=== PATIENT | female | born 1935 | race Caucasian/White ===

== ENCOUNTER → 2017-06-28 | Outpatient (REF) | payer MEDICARE ==
[2017-06-28 13:17] LABS: INR 2.23; PROTHROMBIN TIME 25.5 SECONDS (12.4-14.5)
== END ==
LOC: M LAB REF 12:57
DX: I48.2 Chronic atrial fibrillation (principal)
CPT/HCPCS: 85610

== ENCOUNTER → 2017-12-06 | Outpatient (REF) | payer MEDICARE ==
[2017-12-07 12:10] LABS: HEPATITIS B SURFACE ANTIGEN NEGATIVE (NEGATIVE)
[2017-12-07 12:30] LABS: HEPATITIS B CORE ANTIBODY IGM NEGATIVE (NEGATIVE)
[2017-12-07 12:32] LABS: HEPATITIS A ANTIBODY IGM NEGATIVE (NEGATIVE)
== END ==
LOC: M LAB REF 17:23
DX: R74.8 Abnormal levels of other serum enzymes (principal); I48.2 Chronic atrial fibrillation; Z51.81 Encounter for therapeutic drug level monitoring; Z79.01 Long term (current) use of anticoagulants
CPT/HCPCS: 87340

== ENCOUNTER → 2017-12-06 | Outpatient (REF) | payer MEDICARE ==
[2017-12-06 13:23] LABS: INR 3.36; PROTHROMBIN TIME 34.8 SECONDS (12.1-14.4)
== END ==
LOC: M LAB REF 12:55
DX: I48.2 Chronic atrial fibrillation (principal); Z51.81 Encounter for therapeutic drug level monitoring; Z79.01 Long term (current) use of anticoagulants

== ENCOUNTER 2017-12-11 05:41 | Observation (INO) | payer MEDICARE ==
[2017-12-11] MEDS ORDERED: LR 1,000 ML IV ×4 (06:00)
[2017-12-11 07:17] LABS: INR 1.73; PROTHROMBIN TIME 20.5 SECONDS (12.1-14.4)
[2017-12-11 08:31] LABS: ABO/RH TYPE MANUAL 1 1
[2017-12-11] MEDS ORDERED: dexameTHASONE 4 MG/ML 1ML VIAL (J1100) As Ordered ×2 (08:36)
[2017-12-11] MEDS ORDERED: LIDOCAINE 2% INJ 100 MG/5 ML SDV (FOR ANES.) As Ordered ×2 (08:36)
[2017-12-11] MEDS ORDERED: ONDANSETRON 4MG/2ML VIAL (J2405) As Ordered ×2 (08:36)
[2017-12-11] MEDS ORDERED: ROCURONIUM BROMIDE 50 MG/5 ML VIAL As Ordered ×4 (08:36→08:55)
[2017-12-11] MEDS ORDERED: PHENYLEPHRINE INJ 10MG/ML VIAL (J2370) As Ordered ×2 (08:36)
[2017-12-11] MEDS ORDERED: fentaNYL 250 MCG/5 ML INJECTION (J3010) As Ordered ×2 (08:36)
[2017-12-11] MEDS ORDERED: PROPOFOL 200 MG/20 ML VIAL As Ordered ×2 (08:36)
[2017-12-11] MEDS ORDERED: MIDAZOLAM INJ 2 MG/2 ML VIAL (J2250) As Ordered ×2 (08:36)
[2017-12-11] MEDS ORDERED: NEOSTIGMINE 10 MG/10 ML VIAL (J2710) As Ordered ×2 (09:30)
[2017-12-11] MEDS ORDERED: GLYCOPYRROLATE INJ 0.2 MG/ML 2 ML VIAL As Ordered ×4 (09:30)
[2017-12-11] MEDS: ceFAZolin SOD 1 GM in D5W MINI-BAG PLUS 50 ML IV (10:05)
[2017-12-11] MEDS: BUPIVACAINE/EPIN 0.25% 30 ML VIAL As Ordered ×2 (10:05)
[2017-12-11] MEDS ORDERED: ALBUTEROL SULFATE 2.5 MG/0.5 ML INH NEB SOLN As Ordered ×2 (10:37)
[2017-12-11] MEDS ORDERED: fentaNYL 100 MCG/2 ML INJECTION (J3010) IV ×2 (11:00)
[2017-12-11] MEDS ORDERED: ONDANSETRON 4MG/2ML VIAL (J2405) IV ×6 (11:00→14:45)
[2017-12-11] MEDS ORDERED: PERCOCET 5MG/325MG TAB PO ×2 (11:00)
[2017-12-11] MEDS: HYDROMORPHONE HCL 0.5 MG/ 0.5 ML SYRINGE (J1170 PER 1) IV ×6 (11:14→11:51)
[2017-12-11] MEDS ORDERED: SUGAMMADEX SODIUM 500 MG/5 ML VIAL (BRIDION) As Ordered ×2 (11:29)
[2017-12-11] MEDS ORDERED: FUROSEMIDE 20 MG/2 ML VIAL (J1940) As Ordered ×2 (11:46)
[2017-12-11] MEDS: FUROSEMIDE 20 MG/2 ML VIAL (J1940) IV ×4 (12:01→13:05)
[2017-12-11] MEDS ORDERED: NORCO, ANEXSIA 5/325MG TABLET (HYDROcodone/ACETAMINOPHEN) As Ordered ×2 (12:43)
[2017-12-11] MEDS: NORCO, ANEXSIA 5/325MG TABLET (HYDROcodone/ACETAMINOPHEN) PO ×6 (12:45→21:05)
[2017-12-11 14:15] LABS: BASO % 0.2 % (0.0-1.0); EOS % 0.5 % (0.0-3.0); HEMATOCRIT 34.2 % (36.0-47.0); HEMOGLOBIN 10.9 g/dl (12.0-15.5); IMMATURE GRANULOCYTE % 0.5 % (0-3.0); LYMPH # 0.7 10^3/uL (1.5-4.5); MEAN CORPUSCULAR HEMOGLOBIN 29.5 pg (27.0-33.0); MEAN CORPUSCULAR HGB CONC 31.9 g/dl (32.0-36.5); MEAN CORPUSCULAR VOLUME 92.7 fl (80.0-96.0); MONO # 0.2 10^3/uL (0.0-0.8); MONO % 4.1 % (0.0-5.0); NEUTROPHILS # 3.1 10^3/uL (1.8-7.7); NEUTROPHILS % 76.7 % (36.0-66.0); PLATELET COUNT, AUTOMATED 126 10^3/uL (150-450); RED BLOOD COUNT 3.69 10^6/uL (4.00-5.40); RED CELL DISTRIBUTION WIDTH 14.8 % (11.5-14.5); WHITE BLOOD COUNT 4.1 10^3/uL (4.0-10.0)
[2017-12-11 14:32] LABS: INR 1.38; PROTHROMBIN TIME 17.2 SECONDS (12.1-14.4)
[2017-12-11 14:35] LABS: LACTIC ACID SEPSIS PROTOCOL 1.3 MMOL/L (0.4-2.0)
[2017-12-11 14:38] LABS: ALBUMIN 3.6 GM/DL (3.2-5.2); ALKALINE PHOSPHATASE 325 U/L (45-117); ALT/SGPT 61 U/L (12-78); ANION GAP 7 MEQ/L (8-16); AST/SGOT 85 U/L (7-37); BILIRUBIN,TOTAL 0.8 MG/DL (0.2-1.0); BLOOD UREA NITROGEN 22 MG/DL (7-18); CALCIUM LEVEL 8.9 MG/DL (8.8-10.2); CARBON DIOXIDE LEVEL 29 MEQ/L (21-32); CHLORIDE LEVEL 104 MEQ/L (98-107); CK-MB VALUE MASS 2.3 NG/ML (<3.6); CPK CREATINE PHOSPHOKINASE 93 U/L (26-192); GLOMERULAR FILTRATION RATE 56.8 (>32); GLUCOSE, FASTING 114 MG/DL (70-100); MAGNESIUM LEVEL 2.1 MG/DL (1.8-2.4); MB/CK RELATIVE INDEX 2.47 (< OR =4); NT-PRO BNP 2413 PG/ML (<450); POTASSIUM SERUM 4.2 MEQ/L (3.5-5.1); SODIUM LEVEL 140 MEQ/L (136-145); TOTAL PROTEIN 7.6 GM/DL (6.4-8.2); TROPONIN I < 0.02 NG/ML (< 0.10)
[2017-12-11] MEDS ORDERED: ACETAMINOPHEN TAB 650MG DOSE (2X325MG) PO ×2 (14:45)
[2017-12-11] MEDS ORDERED: MORPHINE 4 MG/ML 1ML VIAL/SYRINGE (J2270) IV ×2 (14:45)
[2017-12-11] MEDS: LR 1,000 ML IV ×4 (14:45→15:36)
[2017-12-11] MEDS: FUROSEMIDE 40 MG/4 ML VIAL (J1940) IV ×2 (17:01)
[2017-12-11 19:30] LABS: CK-MB VALUE MASS 2.3 NG/ML (<3.6); CPK CREATINE PHOSPHOKINASE 88 U/L (26-192); MB/CK RELATIVE INDEX 2.61 (< OR =4); TROPONIN I < 0.02 NG/ML (< 0.10)
[2017-12-11] MEDS: SENOKOT S TAB PO ×2 (21:00)
[2017-12-11] MEDS: LOSARTAN 50 MG TAB PO ×2 (21:04)
[2017-12-11] MEDS: CARVedilol 12.5 MG TAB PO ×2 (21:04)
[2017-12-11] MEDS: DORZOLAMIDE 2% OPHTH SOLN 10 ML BTL OU ×2 (21:05)
[2017-12-11] MEDS: LATANOPROST 0.005% OPHTH SOLN 2.5 ML OU ×2 (21:05)
[2017-12-12] MEDS: FUROSEMIDE 40 MG/4 ML VIAL (J1940) IV ×6 (00:02→06:02)
[2017-12-12] MEDS: NORCO, ANEXSIA 5/325MG TABLET (HYDROcodone/ACETAMINOPHEN) PO ×12 (01:05→23:29)
[2017-12-12 05:33] LABS: HEMATOCRIT 32.2 % (36.0-47.0); HEMOGLOBIN 10.5 g/dl (12.0-15.5); MEAN CORPUSCULAR HEMOGLOBIN 29.5 pg (27.0-33.0); MEAN CORPUSCULAR HGB CONC 32.6 g/dl (32.0-36.5); MEAN CORPUSCULAR VOLUME 90.4 fl (80.0-96.0); PLATELET COUNT, AUTOMATED 128 10^3/uL (150-450); RED BLOOD COUNT 3.56 10^6/uL (4.00-5.40); RED CELL DISTRIBUTION WIDTH 14.6 % (11.5-14.5); WHITE BLOOD COUNT 5.3 10^3/uL (4.0-10.0)
[2017-12-12 05:57] LABS: INR 1.46
[2017-12-12] MEDS: LEVOTHYROXINE 150MCG TABLET (0.15MG) PO ×2 (06:02)
[2017-12-12 06:04] LABS: ANION GAP 10 MEQ/L (8-16); BLOOD UREA NITROGEN 22 MG/DL (7-18); CALCIUM LEVEL 8.4 MG/DL (8.8-10.2); CARBON DIOXIDE LEVEL 27 MEQ/L (21-32); CHLORIDE LEVEL 102 MEQ/L (98-107); CREATININE FOR GFR 1.02 MG/DL (0.55-1.30); FREE THYROXINE INDEX 5.9 % (1.3-4.8); GLOMERULAR FILTRATION RATE 55.5 (>32); GLUCOSE, FASTING 116 MG/DL (70-100); MAGNESIUM LEVEL 2.2 MG/DL (1.8-2.4); POTASSIUM SERUM 3.7 MEQ/L (3.5-5.1); SODIUM LEVEL 139 MEQ/L (136-145); T UPTAKE 38 % (30-39); THYROID STIMULATING HORMONE 0.255 uIU/ML (0.358-3.740); THYROXINE (T4) 15.5 UG/DL (4.5-12.0)
[2017-12-12] MEDS: SENNA 8.6 MG TAB (SENOKOT) PO ×4 (08:41→21:22)
[2017-12-12] MEDS: DOCUSATE SODIUM 100 MG CAP PO ×4 (08:42→21:21)
[2017-12-12] MEDS: FERROUS SULFATE 325MG TAB PO ×2 (08:42)
[2017-12-12] MEDS: DORZOLAMIDE 2% OPHTH SOLN 10 ML BTL OU ×4 (08:42→21:21)
[2017-12-12] MEDS: SENOKOT S TAB PO ×4 (08:42→21:22)
[2017-12-12] MEDS: CARVedilol 12.5 MG TAB PO ×4 (08:43→21:00)
[2017-12-12] MEDS: FUROSEMIDE 40 MG TAB PO ×2 (12:37)
[2017-12-12] MEDS: LOSARTAN 50 MG TAB PO ×2 (21:00)
[2017-12-12] MEDS: LATANOPROST 0.005% OPHTH SOLN 2.5 ML OU ×2 (21:21)
[2017-12-13 05:13] LABS: HEMOGLOBIN 10.4 g/dl (12.0-15.5); MEAN CORPUSCULAR HEMOGLOBIN 30.1 pg (27.0-33.0); MEAN CORPUSCULAR HGB CONC 32.5 g/dl (32.0-36.5); MEAN CORPUSCULAR VOLUME 92.5 fl (80.0-96.0); PLATELET COUNT, AUTOMATED 125 10^3/uL (150-450); RED BLOOD COUNT 3.46 10^6/uL (4.00-5.40); RED CELL DISTRIBUTION WIDTH 14.7 % (11.5-14.5); WHITE BLOOD COUNT 5.8 10^3/uL (4.0-10.0)
[2017-12-13 05:24] LABS: INR 1.29; PROTHROMBIN TIME 16.3 SECONDS (12.1-14.4)
[2017-12-13 05:35] LABS: ANION GAP 8 MEQ/L (8-16); BLOOD UREA NITROGEN 40 MG/DL (7-18); CALCIUM LEVEL 8.5 MG/DL (8.8-10.2); CARBON DIOXIDE LEVEL 28 MEQ/L (21-32); CHLORIDE LEVEL 102 MEQ/L (98-107); CREATININE FOR GFR 1.43 MG/DL (0.55-1.30); GLOMERULAR FILTRATION RATE 37.6 (>32); GLUCOSE, FASTING 86 MG/DL (70-100); MAGNESIUM LEVEL 2.2 MG/DL (1.8-2.4); POTASSIUM SERUM 3.9 MEQ/L (3.5-5.1); SODIUM LEVEL 138 MEQ/L (136-145)
[2017-12-13] MEDS: NORCO, ANEXSIA 5/325MG TABLET (HYDROcodone/ACETAMINOPHEN) PO ×2 (06:00)
[2017-12-13] MEDS: LEVOTHYROXINE 150MCG TABLET (0.15MG) PO ×2 (06:00)
[2017-12-13] MEDS: CARVedilol 12.5 MG TAB PO ×2 (09:00)
[2017-12-13] MEDS: SENOKOT S TAB PO ×2 (09:00)
[2017-12-13] MEDS: SENNA 8.6 MG TAB (SENOKOT) PO ×2 (09:00)
[2017-12-13] MEDS: FERROUS SULFATE 325MG TAB PO ×2 (09:32)
[2017-12-13] MEDS: DOCUSATE SODIUM 100 MG CAP PO ×2 (09:32)
[2017-12-13] MEDS: DORZOLAMIDE 2% OPHTH SOLN 10 ML BTL OU ×2 (09:33)
== END 2017-12-13 10:42 | disposition home or self-care (01) ==
LOC: M SDC 05:41 → M ICU 14:48
DX: R09.02 Hypoxemia (principal); R06.02 Shortness of breath; K40.90 Unilateral inguinal hernia, without obstruction or gangrene, not specified as recurrent; I48.91 Unspecified atrial fibrillation; J81.0 Acute pulmonary edema; E87.70 Fluid overload, unspecified; I12.9 Hypertensive chronic kidney disease with stage 1 through stage 4 chronic kidney disease, or unspecified chronic kidney disease; N18.9 Chronic kidney disease, unspecified; I25.10 Atherosclerotic heart disease of native coronary artery without angina pectoris; E03.9 Hypothyroidism, unspecified; I73.00 Raynaud's syndrome without gangrene; M35.00 Sjogren syndrome, unspecified; I49.5 Sick sinus syndrome; Z95.1 Presence of aortocoronary bypass graft; Z95.0 Presence of cardiac pacemaker; Z95.2 Presence of prosthetic heart valve; Z79.899 Other long term (current) drug therapy; Z88.1 Allergy status to other antibiotic agents; Z88.8 Allergy status to other drugs, medicaments and biological substances; Z79.01 Long term (current) use of anticoagulants; Z95.828 Presence of other vascular implants and grafts; R06.89 Other abnormalities of breathing
CPT/HCPCS: 49650

== ENCOUNTER → 2017-12-19 | Outpatient (REF) | payer MEDICARE ==
[2017-12-19 17:36] LABS: INR 1.67
[2017-12-19 17:37] LABS: PARTIAL THROMBOPLASTIN TIME 44.4 SECONDS (25.4-37.6)
== END ==
LOC: M LAB REF 16:27
DX: I48.2 Chronic atrial fibrillation (principal); I13.0 Hypertensive heart and chronic kidney disease with heart failure and stage 1 through stage 4 chronic kidney disease, or unspecified chronic kidney disease
CPT/HCPCS: 85610

== ENCOUNTER → 2018-01-17 | Outpatient (REF) | payer MEDICARE ==
[2018-01-17 19:05] LABS: INR 2.54; PROTHROMBIN TIME 27.9 SECONDS (12.1-14.4)
[2018-01-18 14:22] LABS: GAMMA GLUTAMYLTRANSPEPTIDASE 306 U/L (5-55)
== END ==
LOC: M LAB REF 17:28
DX: Z51.81 Encounter for therapeutic drug level monitoring (principal); Z79.01 Long term (current) use of anticoagulants; I48.2 Chronic atrial fibrillation; R74.8 Abnormal levels of other serum enzymes
CPT/HCPCS: 82977

== ENCOUNTER → 2018-02-19 | Outpatient (REF) | payer MEDICARE ==
[2018-02-19 17:31] LABS: INR 2.39; PROTHROMBIN TIME 26.6 SECONDS (12.1-14.4)
== END ==
LOC: M LAB REF 16:58
DX: I48.2 Chronic atrial fibrillation (principal)
CPT/HCPCS: 85610

== ENCOUNTER → 2018-02-20 | Outpatient (CLI) | payer MEDICARE | LOC: M PAIN 10:30 | DX: M54.6 Pain in thoracic spine (principal); M12.9 Arthropathy, unspecified; G89.29 Other chronic pain; Z86.79 Personal history of other diseases of the circulatory system; N18.9 Chronic kidney disease, unspecified; E03.9 Hypothyroidism, unspecified; M35.00 Sjogren syndrome, unspecified; Z79.01 Long term (current) use of anticoagulants; D64.9 Anemia, unspecified; Z79.899 Other long term (current) drug therapy; Z88.1 Allergy status to other antibiotic agents; Z88.8 Allergy status to other drugs, medicaments and biological substances; Z95.2 Presence of prosthetic heart valve; Z95.0 Presence of cardiac pacemaker | CPT/HCPCS: G0463 ==

== ENCOUNTER → 2018-02-21 | Outpatient (CLI) | payer MEDICARE ==
[~2018-02-21] MED LIST: GASTROGRAFIN SOLUTION 30ML (Q9963) As Ordered; ISOVUE-370 76% 100ML VIAL (Q9967) As Ordered
== END ==
LOC: M RAD 11:35
DX: R10.31 Right lower quadrant pain (principal)
CPT/HCPCS: Q9963

== ENCOUNTER → 2018-03-25 | Outpatient (CLI) | payer MEDICARE | LOC: M PAIN 10:00 | DX: M54.6 Pain in thoracic spine (principal); G89.29 Other chronic pain; M12.9 Arthropathy, unspecified; J44.9 Chronic obstructive pulmonary disease, unspecified; I48.91 Unspecified atrial fibrillation; N18.9 Chronic kidney disease, unspecified; E03.9 Hypothyroidism, unspecified; M35.00 Sjogren syndrome, unspecified; Z79.01 Long term (current) use of anticoagulants; Z79.899 Other long term (current) drug therapy; Z88.1 Allergy status to other antibiotic agents; Z88.5 Allergy status to narcotic agent; Z88.8 Allergy status to other drugs, medicaments and biological substances; Z95.0 Presence of cardiac pacemaker; Z86.79 Personal history of other diseases of the circulatory system | CPT/HCPCS: G0463 ==

== ENCOUNTER → 2018-04-04 | Outpatient (REF) | payer MEDICARE ==
[2018-04-04 13:13] LABS: INR 3.14
== END ==
LOC: M LAB REF 12:00
DX: I48.0 Paroxysmal atrial fibrillation (principal); Z51.81 Encounter for therapeutic drug level monitoring; Z79.01 Long term (current) use of anticoagulants
CPT/HCPCS: 85610

== ENCOUNTER → 2018-04-24 | Outpatient (CLI) | payer MEDICARE ==
[~2018-04-24] MED LIST changes: +CARV25TA PO; +DORZ2OPD OU; +FERR1TAB8 PO; +FURO20TA2 PO; -GASTROGRAFIN SOLUTION 30ML (Q9963) As Ordered; +HYDR-3713 PO; +ICY1PAD TOP; -ISOVUE-370 76% 100ML VIAL (Q9967) As Ordered; +LATA5OPD OU; +LEVO150T7 PO; +LOSA50TA73 PO; +NITR0.4S14 SL; +POLY1POW4 PO; +WARF-23 PO
--- NOTE | 2018-05-16 02:16 | ECWPNPC ---
PATIENT NAME: NADIRA MANSFIELD : 1935 GENDER: FEMALE VISIT DATE: 04/24/2018 DISCHARGE DATE: 04/24/18 1127 VISIT LOCKED DATE TIME: PHYSICIAN: MAYCO JACKSON RESOURCE: MAYCO JACKSON REASON FOR APPOINTMENT 1. BACK PAIN HISTORY OF PRESENT ILLNESS HISTORY OF PRESENT ILLNESS: HERE FOR F/U OF CHRONIC BACK PAIN. AT LAST VISIT WE STARTED CYMBALTA 20MG DAILY AND INCREASED HYDROCODONE TO 7.5MG Q6H PRN.SHE IS DOING MUCH BETTER WITH INCREAE IN HYDROCODONE.SHE WAS NOT ABLE TO TOLERATE CYMBALTA DUE TO URINARY RETENTION.RATING PAIN VAS 7/10.STATES SHE IS ABLE TO TOLERATE ADL'S AND DO SOME DAILY EXCERSISE NOW THAT SHE HAS IMPROVED PAIN CONTROL WITH CURRENT CHRONIC PAIN MEDICATION.DENIES SIDE EFFECTS.REPORTING NORMAL BOWEL AND BLADDER FUNCTION. PAIN THE PATIENT DESCRIBES THE PAIN... FALL RISK SCREENING: SCREENING :NO FALLS IN THE PAST YEAR CURRENT MEDICATIONS TAKING SENNA 8.6 MG TABLET TK 1 TO 2 TS PO QHS PRN ORAL TAKING WARFARIN SODIUM 5 MG TABLET TK DIRECTED ORAL TAKING CARVEDILOL 25 MG TABLET TK 1 T PO BID ORAL TAKING LEVOTHYROXINE SODIUM 150 MCG TABLET TK 1 T PO QD ORAL TAKING LOSARTAN POTASSIUM 50 MG TABLET TK 1 T PO QHS ORAL TAKING FERROUS SULFATE 325 (65 FE) MG TABLET TK 1 T PO EVERY DAY ORAL TAKING POLYETHYLENE GLYCOL 3350 - POWDER MIX 17 GRAMS OF POWDER IN WATER OR JUICE AND DRINK DAILY ORAL TAKING LASIX 20 MG TABLET 1 TABLET ORALLY ONCE A DAY TAKING TYLENOL EXTRA STRENGTH 500 MG TABLET 1 TABLET NEEDED ORALLY EVERY 6 HRS TAKING DORZOLAMIDE HCL 2 % SOLUTION INT 1 GTT IN OU BID OPHTHALMIC TAKING NITROSTAT 0.4 MG TABLET SUBLINGUAL SUBLINGUAL TAKING LATANOPROST 0.005 % SOLUTION INT 1 GTT IN EACH EYE IN THE MORNING OPHTHALMIC TAKING NORCO 7.5-325 MG TABLET 1 TABLET NEEDED ORALLY EVERY 6 HRS PRN MDD4 NOT-TAKING CYMBALTA 20 MG CAPSULE DELAYED RELEASE PARTICLES 1 CAPSULE ORALLY DAILY, NOTES: NOT TAKING (BAD SIDE EFFECTS) NOT-TAKING BUTRANS 5 MCG/HR PATCH WEEKLY 1 PATCH TO SKIN TRANSDERMAL 1 PATCH Q 7 DAYS =MDD, NOTES: TOO EXPENSIVE MEDICATION LIST REVIEWED AND RECONCILED WITH THE PATIENT PAST MEDICAL HISTORY LOW BACK PAIN ASTHMA ( PT DENIES) A FIB AORTIC VALVE DISORDER, CAD 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 OVERLOAD CHRONIC KIDNEY DISEASE HYPOTHYROIDISM OSTEOPOROSIS WITH HISTORY OF COMPRESSION FRACTURE SJOGRENS SYNDROME ANEMIA GLAUCOMA ALLERGIES ESPERANZA INHIBITORS: COUGH DEMEROL: N/V CIPRO: THROAT TIGHTEN NITROFURANTOIN: RASH AMOXICILLIN: ITCH / SWELLING HANDS CYMBALTA: DRY THROAT, DECREASE IN URINARY FREQUENCY: SIDE EFFECTS SURGICAL HISTORY AAA ENDOVASCULAR GRAFT 06/05/06 GLAUCOMA SHUNT 2010 & 2011 HEART VALVE 10/01 PACEMAKER 07/31 13 CAB X 3 2005 HERNIA X 3 12/24/17 FAMILY HISTORY FATHER: , DIAGNOSED WITH OTHER MOTHER: , DIAGNOSED WITH HEART DISEASE SOCIAL HISTORY GENERAL: TOBACCO USE ARE YOU A:NONSMOKER ALCOHOL SCREENING DID YOU HAVE A DRINK CONTAINING ALCOHOL IN THE PAST YEAR?NO POINTS0 INTERPRETATIONNEGATIVE RECREATIONAL DRUG USE DRUG USE?NO CAFFEINE CAFFEINE USE?YES HOW OFTEN AND HOW MUCH? COFFEE -2CUPS PER DAY DENOMINATIONAL [id number] CONGREGATIONAL LANGUAGE LANGUAGES SPOKEN:FILIPINO LEARNING BARRIERS / SPECIAL NEEDS BARRIERS TO LEARNING?NO HEARING IMPAIRED?NO VISION IMPAIRED?YES :CORRECTIVE LENSES COGNITIVELY IMPAIRED?NO READINESS TO LEARN?YES LEARNING PREFERENCES?NO LEARNING CAPABILITIES PRESENT?YES EMOTIONAL BARRIERS?NO SPECIAL DEVICES?YES :CANE, WALKER WHEN NEEDED TACK WELDER NEEDED?NO PAIN CLINIC PFS, CLERGY, PUBLIC HEALTH REFERRALS PFS REFERRAL NEEDED?NO CLERGY REFERRAL NEEDED?NO PUBLIC HEALTH REFERRAL NEEDED?NO WAS THE PROVIDER NOTIFIED OF ANY PERTINENT INFO?NO HAS THE PATIENT BEEN EDUCATED REGARDING HIS/HER PLAN OF CARE?YES HAS THE PATIENT BEEN EDUCATED REGARDING PAIN, THE RISK FOR PAIN, THE IMPORTANCE OF EFFECTIVE PAIN MANAGEMENT, AND THE PAIN ASSESSMENT PROCESS?YES ADVANCE DIRECTIVE ADVANCE DIRECTIVE DISCUSSED WITH PATIENT:YES HCP IS ISHA MANSFIELD REVIEWED WITH PATIENT 03/25/18 1020 JSREVIEWED WITH PATIENT 04/24/18 1107 JS. HOSPITALIZATION/MAJOR DIAGNOSTIC PROCEDURE SEE ABOVE SURGERY REVIEW OF SYSTEMS REVIEWED BY: PROVIDER: MAYCO VYAS . CONSTITUTIONAL: ANY CHANGE IN YOUR MEDICAL CONDITION? NO . CHILLS NO . FEVER NO . INFECTION: DO YOU HAVE NEW INFECTIONS? NO . DO YOU HAVE HISTORY OF MRSA? NO . MUSCULOSKELETAL: ANY NEW PATTERNS OF PAIN OR NUMBNESS? PATIENT STATES PAIN 7/10 AT THIS TIME TO UPPER BACK. STATES PAIN MEDICATION IS HELPING WITH THE PAIN . GASTROENTEROLOGY: ANY NEW CHANGE IN BOWEL CONTROL? NO . GENITOURINARY: ANY NEW CHANGE IN BLADDER CONTROL? NO . IS THERE A CHANCE YOU COULD BE ? NO . HEMATOLOGY/LYMPH: DO YOU TAKE ANY BLOOD THINNERS? (FOR EXAMPLE- COUMADIN, PLAVIX, AGGRENOX, PLATEL, PRADAXA, OR XARELTO) YES, COUMADIN . WHEN WAS YOUR LAST DOSE? DATE: 04/23/18 TIME: 1800 . NEUROLOGY: HAVE YOU FALLEN IN THE PAST 6 MONTHS? NO . ANY NEW EXTREMITY NUMBNESS OR WEAKNESS? NO . CARDIOLOGY: DO YOU HAVE A PACEMAKER OR DEFIBRILLATOR? YES . RESPIRATORY: HAVE YOU BEEN SICK IN THE PAST WEEK? NO . FEVER NO . FLU LIKE SYMPTOMS? NO . COUGH NO . INTEGUMENTARY: DO YOU HAVE ANY RASHES OR OPEN SORES? NO . ALLERGIC/IMMUNO: ARE YOU ALLERGIC TO SHELLFISH OR IV DYE? NO . ANY NEW ALLERGIES? NO . PSYCHIATRIC: DO YOU HAVE THOUGHTS OF HURTING YOURSELF OR SOMEONE ELSE? NO . ARE YOU ABUSED, NEGLECTED, OR IN AN UNSAFE ENVIRONMENT? NO . ENDOCRINOLOGY: ARE YOU DIABETIC? NO . OTHER: DO YOU NEED ANY PRESCRIPTIONS? NO . IF YES, PLEASE LIST: ____ . ANY NEW PROBLEMS WITH YOUR MEDICATIONS? YES, BAD SIDE EFFECTS WITH CYMBALTA . WHEN DID YOU LAST EAT? ____ . WHEN DID YOU LAST DRINK? ____ . WHAT DID YOU LAST DRINK? ____ . NAME OF PERSON DRIVING YOU HOME? ____ . DO YOU HAVE ANY OTHER QUESTIONS OR CONCERNS SHINGLES VACCINE 03/2018 . VITAL SIGNS WT 143.0 LBS, HT 410 IN, BMI 0.60 INDEX, BP 139/60 MM HG, HR 60 /MIN, RR 18 /MIN, TEMP 97.0 F, OXYGEN SAT % 94%, SAFE IN ENV? (Y/N) YES, NA INITIALS AW 1058, REVIEWED BY: MOLLY. EXAMINATION GENERAL EXAMINATION: GENERAL APPEARANCE:AWAKE,ALERT ,PLEAASANT . PSYCHAFFECT NORMAL . LUNGS:LUNG CROWDER ARE CLEAR TO AUSCULTATION BILATERALLY. GOOD MOVEMENT OF AIR . HEART:S1, S2 IN A REGULAR RATE AND RHYTHM. NO SIGNIFICANT MURMURS, RUBS OR GALLOPS NOTED . 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 (REF #[id number] ) BRINGS IN MEDICATIONS WHICH IS APPROPRIATE FOR WHAT WAS DISPENSED. , RISKS AND BENEFITS OF NARCOTIC/OPIOD MEDICATIONS WERE REVIEWED WITH PATIENT - THIS INCLUDES BUT IS NOT LIMITED TO RISK OF DEPENDANCE/DEVELOPMENT OF ADDICTION, MOOD DISTURBANCE AND DEPRESSION, OSTEOPOROSIS, HORMONAL AND LABIDAL CHANGES, RESPIRATORY DEPRESSION AND . PATIENT IS ADVISED NOT TO DRIVE OR DRINK ALCOHOL WHILE ON THESE MEDICATIONS. PROCEDURE CODES FA211 ESTABILISHED PATIENT [facility] CHARGE DISPOSITION & COMMUNICATION FOLLOW UP 3 MONTHS ELECTRONICALLY SIGNED BY LILLIAM ALVARADO ON 05/15/2018 AT 08:56 AM EST DISCLAIMER : THIS IS A VISIT SUMMARY EXTRACTED FROM THE [employer] CHART. IT IS NOT A COPY OF THE [employer] PROGRESS NOTE. ROSEANN
== END ==
LOC: M PAIN 10:45
PROVIDERS: ATTEND Nurse Practitioner Family
DX: M12.9 Arthropathy, unspecified (principal); M54.5 Low back pain; G89.29 Other chronic pain; J45.909 Unspecified asthma, uncomplicated; N18.9 Chronic kidney disease, unspecified; E03.9 Hypothyroidism, unspecified; M81.0 Age-related osteoporosis without current pathological fracture; M35.00 Sjogren syndrome, unspecified; Z79.01 Long term (current) use of anticoagulants; Z79.899 Other long term (current) drug therapy; Z79.891 Long term (current) use of opiate analgesic; Z88.1 Allergy status to other antibiotic agents; Z88.8 Allergy status to other drugs, medicaments and biological substances; Z95.0 Presence of cardiac pacemaker; Z95.2 Presence of prosthetic heart valve; Z86.79 Personal history of other diseases of the circulatory system

== ENCOUNTER → 2018-05-02 | Outpatient (REF) | payer MEDICARE ==
[2018-05-02 12:24] LABS: INR 2.03; PROTHROMBIN TIME 23.3 SECONDS (12.1-14.4)
== END ==
LOC: M LAB REF 12:08
DX: I48.2 Chronic atrial fibrillation (principal)
CPT/HCPCS: 85610

== ENCOUNTER → 2018-06-03 | Outpatient (REF) | payer MEDICARE ==
[~2018-06-03] MED LIST changes: -LOSA50TA73 PO; +LOSA50TA88 PO; -POLY1POW4 PO; +POLY33503 PO
[2018-06-03 12:38] LABS: INR 1.9; PROTHROMBIN TIME 22.1 SECONDS (12.1-14.4)
== END ==
LOC: M LAB REF 11:54
PROVIDERS: ATTEND Internal Medicine
DX: Z51.81 Encounter for therapeutic drug level monitoring (principal); I48.2 Chronic atrial fibrillation; Z79.01 Long term (current) use of anticoagulants

== ENCOUNTER → 2018-07-04 | Outpatient (REF) | payer MEDICARE ==
[2018-07-04 14:15] LABS: INR 1.51; PROTHROMBIN TIME 18.4 SECONDS (12.1-14.4)
== END ==
LOC: M LAB REF 12:57
PROVIDERS: ATTEND Internal Medicine
DX: I48.2 Chronic atrial fibrillation (principal)

== ENCOUNTER → 2018-07-23 | Outpatient (CLI) | payer MEDICARE ==
--- NOTE | 2018-08-07 02:08 | ECWPNPC ---
PATIENT NAME: NADIRA MANSFIELD : 1935 GENDER: FEMALE VISIT DATE: 07/23/2018 DISCHARGE DATE: 07/23/18 1254 VISIT LOCKED DATE TIME: PHYSICIAN: MAYCO JACKSON RESOURCE: MAYCO JACKSON REASON FOR APPOINTMENT 1. BACK PAIN HISTORY OF PRESENT ILLNESS HISTORY OF PRESENT ILLNESS: HERE FOR F/U OF CHRONIC BACK PAIN. AT LAST VISIT WE STARTED CYMBALTA 20MG DAILY AND INCREASED HYDROCODONE TO 7.5MG Q6H PRN.SHE IS DOING MUCH BETTER WITH INCREAE IN HYDROCODONE.SHE WAS NOT ABLE TO TOLERATE CYMBALTA DUE TO URINARY RETENTION.RATING PAIN VAS 8/10.STATES SHE IS ABLE TO TOLERATE ADL'S AND DO SOME DAILY EXCERSISE NOW THAT SHE HAS IMPROVED PAIN CONTROL WITH CURRENT CHRONIC PAIN MEDICATION.DENIES SIDE EFFECTS.REPORTING NORMAL BOWEL AND BLADDER FUNCTION. PAIN THE PATIENT DESCRIBES THE PAIN... THE PATIENT DESCRIBES THE PAIN... FALL RISK SCREENING: SCREENING : NO FALLS IN THE PAST YEAR. CURRENT MEDICATIONS TAKING SENNA 8.6 MG TABLET TK 1 TO 2 TS PO QHS PRN ORAL TAKING WARFARIN SODIUM 5 MG TABLET TK DIRECTED ORAL TAKING CARVEDILOL 25 MG TABLET TK 1 T PO BID ORAL TAKING LEVOTHYROXINE SODIUM 150 MCG TABLET TK 1 T PO QD ORAL TAKING LOSARTAN POTASSIUM 50 MG TABLET TK 1 T PO QHS ORAL TAKING POLYETHYLENE GLYCOL 3350 - POWDER MIX 17 GRAMS OF POWDER IN WATER OR JUICE AND DRINK DAILY ORAL TAKING LASIX 20 MG TABLET 1 TABLET ORALLY ONCE A DAY TAKING TYLENOL EXTRA STRENGTH 500 MG TABLET 1 TABLET NEEDED ORALLY EVERY 6 HRS TAKING DORZOLAMIDE HCL 2 % SOLUTION INT 1 GTT IN OU BID OPHTHALMIC TAKING NITROSTAT 0.4 MG TABLET SUBLINGUAL SUBLINGUAL TAKING LATANOPROST 0.005 % SOLUTION INT 1 GTT IN EACH EYE IN THE MORNING OPHTHALMIC TAKING NORCO 7.5-325 MG TABLET 1 TABLET NEEDED ORALLY EVERY 6 HRS PRN MDD4 TAKING TURMERIC COMPLEX/BLACK PEPPER 500-3 MG CAPSULE ORALLY NOT-TAKING FERROUS SULFATE 325 (65 FE) MG TABLET TK 1 T PO EVERY DAY ORAL NOT-TAKING CYMBALTA 20 MG CAPSULE DELAYED RELEASE PARTICLES 1 CAPSULE ORALLY DAILY, NOTES: NOT TAKING (BAD SIDE EFFECTS) NOT-TAKING BUTRANS 5 MCG/HR PATCH WEEKLY 1 PATCH TO SKIN TRANSDERMAL 1 PATCH Q 7 DAYS =MDD, NOTES: TOO EXPENSIVE MEDICATION LIST REVIEWED AND RECONCILED WITH THE PATIENT PAST MEDICAL HISTORY LOW BACK PAIN ASTHMA ( PT DENIES) A FIB AORTIC VALVE DISORDER, CAD 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 OVERLOAD CHRONIC KIDNEY DISEASE HYPOTHYROIDISM OSTEOPOROSIS WITH HISTORY OF COMPRESSION FRACTURE SJOGRENS SYNDROME ANEMIA GLAUCOMA ALLERGIES ESPERANZA INHIBITORS: COUGH DEMEROL: N/V CIPRO: THROAT TIGHTEN NITROFURANTOIN: RASH AMOXICILLIN: ITCH / SWELLING HANDS CYMBALTA: DRY THROAT, DECREASE IN URINARY FREQUENCY - SIDE EFFECTS SURGICAL HISTORY AAA ENDOVASCULAR GRAFT 06/05/06 GLAUCOMA SHUNT 2010 & 2011 HEART VALVE 10/01 PACEMAKER 07/31 13 CAB X 3 2005 HERNIA X 3 12/24/17 FAMILY HISTORY FATHER: , DIAGNOSED WITH OTHER MOTHER: , HEART DISEASE SOCIAL HISTORY GENERAL: TOBACCO USE ARE YOU A:NONSMOKER LATEX QUESTIONNAIRE LATEX ALLERGY : HAVE YOU EVER DEVELOPED ANY TYPE OF REACTION AFTER HANDLING LATEX PRODUCTS SUCH RUBBER GLOVES, CONDOMS, DIAPHRAGMS, BALLOONS, SOCKS, OR UNDERWEAR?NO LATEX ALLERGY : HAVE YOU EVER DEVELOPED ANY TYPE OF REACTION DURING OR AFTER DENTAL APPOINTMENT, VAGINAL/RECTAL EXAMINATION, SURGICAL PROCEDURE, OR ANY OTHER EXPOSURE?NO LATEX RISK : HAVE YOU EVER HAD ANY DIFFICULTY BREATHING OR HIVES AFTER EATING OR HANDLING ANY FRUITS, OR VEGETABLES; SUCH KIWI, BANANAS, STONE FRUITS, OR CHESTNUTSNO LATEX RISK : DO YOU HAVE A PREVIOUS PERSONAL HISTORY OF MORE THAN NINE SURGERIES, SPINA BIFIDA, OR REPEATED CATHERTIZATIONS? NO LATEX RISK : ARE YOU FREQUENTLY EXPOSED TO LATEX PRODUCTS IN YOUR OCCUPATION?NO DATE ASKED : 07/23/2018 ALCOHOL SCREENING DID YOU HAVE A DRINK CONTAINING ALCOHOL IN THE PAST YEAR?NO POINTS0 INTERPRETATIONNEGATIVE RECREATIONAL DRUG USE DRUG USE?NO CAFFEINE CAFFEINE USE?YES HOW OFTEN AND HOW MUCH? COFFEE -2CUPS PER DAY RELIGIOUS [id number] SCIENTOLOGIST LANGUAGE LANGUAGES SPOKEN:MONGOLIAN LEARNING BARRIERS / SPECIAL NEEDS BARRIERS TO LEARNING?NO HEARING IMPAIRED?NO VISION IMPAIRED?YES :CORRECTIVE LENSES COGNITIVELY IMPAIRED?NO READINESS TO LEARN?YES LEARNING PREFERENCES?NO LEARNING CAPABILITIES PRESENT?YES EMOTIONAL BARRIERS?NO SPECIAL DEVICES?YES :CANE, WALKER WHEN NEEDED AUTO RADIATOR MECHANIC NEEDED?NO PAIN CLINIC PFS, CLERGY, PUBLIC HEALTH REFERRALS PFS REFERRAL NEEDED?NO CLERGY REFERRAL NEEDED?NO PUBLIC HEALTH REFERRAL NEEDED?NO WAS THE PROVIDER NOTIFIED OF ANY PERTINENT INFO?NO HAS THE PATIENT BEEN EDUCATED REGARDING HIS/HER PLAN OF CARE?YES HAS THE PATIENT BEEN EDUCATED REGARDING PAIN, THE RISK FOR PAIN, THE IMPORTANCE OF EFFECTIVE PAIN MANAGEMENT, AND THE PAIN ASSESSMENT PROCESS?YES ADVANCE DIRECTIVE ADVANCE DIRECTIVE DISCUSSED WITH PATIENT:YES HCP IS ISHA MANSFIELD REVIEWED WITH PATIENT 03/25/18 1020 JSREVIEWED WITH PATIENT 04/24/18 1107 JSREVIEWED WITH PATIENT 07/23/18 1140 LAS. HOSPITALIZATION/MAJOR DIAGNOSTIC PROCEDURE SEE ABOVE SURGERY REVIEW OF SYSTEMS REVIEWED BY: PROVIDER: MAYCO VYAS . CONSTITUTIONAL: ANY CHANGE IN YOUR MEDICAL CONDITION? NO . CHILLS NO . FEVER NO . INFECTION: DO YOU HAVE NEW INFECTIONS? NO . DO YOU HAVE HISTORY OF MRSA? NO . MUSCULOSKELETAL: ANY NEW PATTERNS OF PAIN OR NUMBNESS? NO . GASTROENTEROLOGY: ANY NEW CHANGE IN BOWEL CONTROL? PT REPORTS INCREASE IN CONSTIPATION . GENITOURINARY: ANY NEW CHANGE IN BLADDER CONTROL? NO . IS THERE A CHANCE YOU COULD BE ? NO . HEMATOLOGY/LYMPH: DO YOU TAKE ANY BLOOD THINNERS? (FOR EXAMPLE- COUMADIN, PLAVIX, AGGRENOX, PLATEL, PRADAXA, OR XARELTO) YES . WHEN WAS YOUR LAST DOSE? DATE: TIME: COUMADIN . NEUROLOGY: HAVE YOU FALLEN IN THE PAST 12 MONTHS? NO . ANY NEW EXTREMITY NUMBNESS OR WEAKNESS? PT REPORTS A NEW DISCOMFORT AND STIFFNESS IN RIGHT THUMB. . CARDIOLOGY: DO YOU HAVE A PACEMAKER OR DEFIBRILLATOR? YES . RESPIRATORY: HAVE YOU BEEN SICK IN THE PAST WEEK? NO . FEVER NO . FLU LIKE SYMPTOMS? NO . COUGH NO . INTEGUMENTARY: DO YOU HAVE ANY RASHES OR OPEN SORES? NO . ALLERGIC/IMMUNO: ARE YOU ALLERGIC TO IV DYE? NO . ANY NEW ALLERGIES? NO . PSYCHIATRIC: DO YOU HAVE THOUGHTS OF HURTING YOURSELF OR SOMEONE ELSE? NO . ARE YOU ABUSED, NEGLECTED, OR IN AN UNSAFE ENVIRONMENT? NO . ENDOCRINOLOGY: ARE YOU DIABETIC? NO . OTHER: DO YOU NEED ANY PRESCRIPTIONS? NO . IF YES, PLEASE LIST: ____ . ANY NEW PROBLEMS WITH YOUR MEDICATIONS? NO . WHEN DID YOU LAST EAT? ____ . WHEN DID YOU LAST DRINK? ____ . WHAT DID YOU LAST DRINK? ____ . NAME OF PERSON DRIVING YOU HOME? ____ . DO YOU HAVE ANY OTHER QUESTIONS OR CONCERNS NO . VITAL SIGNS WT 137.0 LBS, HT 410 IN, BMI 0.57 INDEX, BP 138/64 MM HG, HR 60 /MIN, RR 18 /MIN, TEMP 97.5 F, OXYGEN SAT % 100%, SAFE IN ENV? (Y/N) YES, NA INITIALS AW 1119, REVIEWED BY: EVAN. EXAMINATION GENERAL EXAMINATION: GENERAL APPEARANCE:AWAKE,ALERT ,PLEAASANT . PSYCHAFFECT NORMAL . LUNGS:LUNG CROWDER ARE CLEAR TO AUSCULTATION BILATERALLY. GOOD MOVEMENT OF AIR . HEART:S1, S2 IN A REGULAR RATE AND RHYTHM. NO SIGNIFICANT MURMURS, RUBS OR GALLOPS NOTED . ASSESSMENTS ARTHROPATHY - M12.9 (PRIMARY) TREATMENT ARTHROPATHY REFILL NORCO TABLET, 7.5-325 MG, 1 TABLET NEEDED, ORALLY, EVERY 6 HRS PRN MDD4, 30 DAY(S), 120, REFILLS 0 NOTES: ISTOP REGISTRY REVIEWED AND DEMONSTRATES COMPLLIANCE. BRINGS IN MEDICATIONS WHICH IS APPROPRIATE FOR WHAT WAS DISPENSED. URINE TOX TODAY, RISKS AND BENEFITS OF NARCOTIC/OPIOD MEDICATIONS WERE REVIEWED WITH PATIENT - THIS INCLUDES BUT IS NOT LIMITED TO RISK OF DEPENDANCE/DEVELOPMENT OF ADDICTION, MOOD DISTURBANCE AND DEPRESSION, OSTEOPOROSIS, HORMONAL AND LABIDAL CHANGES, RESPIRATORY DEPRESSION AND . PATIENT IS ADVISED NOT TO DRIVE OR DRINK ALCOHOL WHILE ON THESE MEDICATIONS. PROCEDURE CODES FA211 ESTABILISHED PATIENT [facility] CHARGE DISPOSITION & COMMUNICATION FOLLOW UP 3 MONTHS ELECTRONICALLY SIGNED BY LILLIAM ALVARADO ON 08/06/2018 AT 03:45 PM EDT DISCLAIMER : THIS IS A VISIT SUMMARY EXTRACTED FROM THE [employer] CHART. IT IS NOT A COPY OF THE [employer] PROGRESS NOTE. ROSEANN
== END ==
LOC: M PAIN 11:00
PROVIDERS: ATTEND Nurse Practitioner Family
DX: M12.9 Arthropathy, unspecified (principal); M54.9 Dorsalgia, unspecified; G89.29 Other chronic pain; J45.909 Unspecified asthma, uncomplicated; E03.9 Hypothyroidism, unspecified; M81.0 Age-related osteoporosis without current pathological fracture; M35.00 Sjogren syndrome, unspecified; Z79.01 Long term (current) use of anticoagulants; Z79.899 Other long term (current) drug therapy; Z88.1 Allergy status to other antibiotic agents; Z88.5 Allergy status to narcotic agent; Z88.8 Allergy status to other drugs, medicaments and biological substances; Z86.79 Personal history of other diseases of the circulatory system; Z95.0 Presence of cardiac pacemaker

== ENCOUNTER → 2018-08-22 | Outpatient (REF) | payer MEDICARE ==
[~2018-08-22] MED LIST changes: +LATA0.0013 OU; -LATA5OPD OU
[2018-08-22 17:19] LABS: INR 1.83; PROTHROMBIN TIME 21.5 SECONDS (12.1-14.4)
== END ==
LOC: M LAB REF 16:53
PROVIDERS: ATTEND Internal Medicine
DX: I48.0 Paroxysmal atrial fibrillation (principal)

== ENCOUNTER → 2018-10-07 | Outpatient (REF) | payer MEDICARE ==
[2018-10-07 12:26] LABS: INR 2.57; PROTHROMBIN TIME 28.1 SECONDS (12.1-14.4)
== END ==
LOC: M LAB REF 12:04
PROVIDERS: ATTEND Internal Medicine
DX: I48.2 Chronic atrial fibrillation (principal)

== ENCOUNTER → 2018-10-23 | Outpatient (CLI) | payer MEDICARE ==
--- NOTE | 2018-10-24 00:48 | ECWPNPC ---
PATIENT NAME: NADIRA MANSFIELD : 1935 GENDER: FEMALE VISIT DATE: 10/23/2018 DISCHARGE DATE: 10/23/18 1136 VISIT LOCKED DATE TIME: PHYSICIAN: MAYCO JACKSON RESOURCE: MAYCO JACKSON REASON FOR APPOINTMENT 1. BACK PAIN HISTORY OF PRESENT ILLNESS HISTORY OF PRESENT ILLNESS: HERE FOR F/U OF CHRONICMID BACK PAIN.OVERALL DOING WELL.FINDS HYDROCODONE 7.5/325 Q6H PRN HELPFUL AT REDUCING PAIN AND KEEPING HER FUNCTIONAL.CONTINUES TO HAVE PAIN WITH CERTAIN ACTIVITIES IE LAUNDRY BUT IS ABLE TO GET RELIEF WITH SEVERE EPISODES OF PAIN WITH A HYDROCODONE AND HEAT.DENIES ADVERSE EFFECTS OF MEDICATION. PAIN THE PATIENT DESCRIBES THE PAIN... FALL RISK SCREENING: SCREENING :NO FALLS REPORTED IN THE LAST YEAR CURRENT MEDICATIONS TAKING SENNA 8.6 MG TABLET TK 1 TO 2 TS PO QHS PRN ORAL TAKING WARFARIN SODIUM 5 MG TABLET TK DIRECTED ORAL TAKES 7.5MG ON , , AND SUN. TAKES 5MG ALL OTHER DAYS TAKING CARVEDILOL 25 MG TABLET TK 1 T PO BID ORAL TAKING LEVOTHYROXINE SODIUM 150 MCG TABLET TK 1 T PO QD ORAL TAKING LOSARTAN POTASSIUM 50 MG TABLET TK 1 T PO QHS ORAL TAKING POLYETHYLENE GLYCOL 3350 - POWDER MIX 17 GRAMS OF POWDER IN WATER OR JUICE AND DRINK DAILY ORAL TAKING LASIX 40 MG TABLET 1 TABLET ORALLY ONCE A DAY TAKING DORZOLAMIDE HCL 2 % SOLUTION INT 1 GTT IN OU BID OPHTHALMIC TAKING NITROSTAT 0.4 MG TABLET SUBLINGUAL SUBLINGUAL TAKING LATANOPROST 0.005 % SOLUTION INT 1 GTT IN EACH EYE IN THE MORNING OPHTHALMIC DAILY TAKING TURMERIC COMPLEX/BLACK PEPPER 500-3 MG CAPSULE ORALLY TAKING NORCO 7.5-325 MG TABLET 1 TABLET NEEDED ORALLY EVERY 6 HRS PRN MDD4 NOT-TAKING TYLENOL EXTRA STRENGTH 500 MG TABLET 1 TABLET NEEDED ORALLY EVERY 6 HRS NOT-TAKING FERROUS SULFATE 325 (65 FE) MG TABLET TK 1 T PO EVERY DAY ORAL NOT-TAKING CYMBALTA 20 MG CAPSULE DELAYED RELEASE PARTICLES 1 CAPSULE ORALLY DAILY, NOTES: NOT TAKING (BAD SIDE EFFECTS) NOT-TAKING BUTRANS 5 MCG/HR PATCH WEEKLY 1 PATCH TO SKIN TRANSDERMAL 1 PATCH Q 7 DAYS =MDD, NOTES: TOO EXPENSIVE MEDICATION LIST REVIEWED AND RECONCILED WITH THE PATIENT PAST MEDICAL HISTORY LOW BACK PAIN ASTHMA ( PT DENIES) A FIB AORTIC VALVE DISORDER, CAD 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 OVERLOAD CHRONIC KIDNEY DISEASE HYPOTHYROIDISM OSTEOPOROSIS WITH HISTORY OF COMPRESSION FRACTURE SJOGRENS SYNDROME ANEMIA GLAUCOMA ALLERGIES ESPERANZA INHIBITORS: COUGH DEMEROL: N/V CIPRO: THROAT TIGHTEN NITROFURANTOIN: RASH AMOXICILLIN: ITCH / SWELLING HANDS CYMBALTA: DRY THROAT, DECREASE IN URINARY FREQUENCY - SIDE EFFECTS SURGICAL HISTORY AAA ENDOVASCULAR GRAFT 06/05/06 GLAUCOMA SHUNT 2010 & 2011 HEART VALVE 10/01 PACEMAKER 07/31 13 CAB X 3 2005 HERNIA X 3 12/24/17 FAMILY HISTORY FATHER: , DIAGNOSED WITH OTHER MOTHER: , HEART DISEASE SOCIAL HISTORY GENERAL: TOBACCO USE ARE YOU A:NONSMOKER PAIN CLINIC PFS, CLERGY, PUBLIC HEALTH REFERRALS PFS REFERRAL NEEDED?NO CLERGY REFERRAL NEEDED?NO PUBLIC HEALTH REFERRAL NEEDED?NO WAS THE PROVIDER NOTIFIED OF ANY PERTINENT INFO?NO HAS THE PATIENT BEEN EDUCATED REGARDING HIS/HER PLAN OF CARE?YES HAS THE PATIENT BEEN EDUCATED REGARDING PAIN, THE RISK FOR PAIN, THE IMPORTANCE OF EFFECTIVE PAIN MANAGEMENT, AND THE PAIN ASSESSMENT PROCESS?YES LATEX QUESTIONNAIRE LATEX ALLERGY : HAVE YOU EVER DEVELOPED ANY TYPE OF REACTION AFTER HANDLING LATEX PRODUCTS SUCH RUBBER GLOVES, CONDOMS, DIAPHRAGMS, BALLOONS, SOCKS, OR UNDERWEAR?NO LATEX ALLERGY : HAVE YOU EVER DEVELOPED ANY TYPE OF REACTION DURING OR AFTER DENTAL APPOINTMENT, VAGINAL/RECTAL EXAMINATION, SURGICAL PROCEDURE, OR ANY OTHER EXPOSURE?NO LATEX RISK : HAVE YOU EVER HAD ANY DIFFICULTY BREATHING OR HIVES AFTER EATING OR HANDLING ANY FRUITS, OR VEGETABLES; SUCH KIWI, BANANAS, STONE FRUITS, OR CHESTNUTSNO LATEX RISK : DO YOU HAVE A PREVIOUS PERSONAL HISTORY OF MORE THAN NINE SURGERIES, SPINA BIFIDA, OR REPEATED CATHERTIZATIONS? NO LATEX RISK : ARE YOU FREQUENTLY EXPOSED TO LATEX PRODUCTS IN YOUR OCCUPATION?NO DATE ASKED : 07/23/2018 CAFFEINE CAFFEINE USE?YES HOW OFTEN AND HOW MUCH? COFFEE -2CUPS PER DAY ADVANCE DIRECTIVE ADVANCE DIRECTIVE DISCUSSED WITH PATIENT:YES HCP IS ISHA MANSFIELD RASTAFARI [id number] VOODOO LANGUAGE LANGUAGES SPOKEN:CHINESE ALCOHOL SCREENING DID YOU HAVE A DRINK CONTAINING ALCOHOL IN THE PAST YEAR?NO POINTS0 INTERPRETATIONNEGATIVE RECREATIONAL DRUG USE DRUG USE?NO LEARNING BARRIERS / SPECIAL NEEDS BARRIERS TO LEARNING?NO HEARING IMPAIRED?NO VISION IMPAIRED?YES :CORRECTIVE LENSES COGNITIVELY IMPAIRED?NO READINESS TO LEARN?YES LEARNING PREFERENCES?NO LEARNING CAPABILITIES PRESENT?YES EMOTIONAL BARRIERS?NO SPECIAL DEVICES?YES :CANE, WALKER WHEN NEEDED EMERGENCY MEDICAL SERVICE MANAGER NEEDED?NO REVIEWED WITH PATIENT 03/25/18 1020 JSREVIEWED WITH PATIENT 04/24/18 1107 JSREVIEWED WITH PATIENT 07/23/18 1140 LASREVIEWED WITH PT 10/23/18 1116 BV. HOSPITALIZATION/MAJOR DIAGNOSTIC PROCEDURE SEE ABOVE SURGERY REVIEW OF SYSTEMS REVIEWED BY: PROVIDER: MAYCO VYAS . CONSTITUTIONAL: ANY CHANGE IN YOUR MEDICAL CONDITION? NO . CHILLS NO . FEVER NO . INFECTION: DO YOU HAVE NEW INFECTIONS? NO . DO YOU HAVE HISTORY OF MRSA? NO . MUSCULOSKELETAL: ANY NEW PATTERNS OF PAIN OR NUMBNESS? NO . GASTROENTEROLOGY: ANY NEW CHANGE IN BOWEL CONTROL? NO . GENITOURINARY: ANY NEW CHANGE IN BLADDER CONTROL? NO . IS THERE A CHANCE YOU COULD BE ? NO . HEMATOLOGY/LYMPH: DO YOU TAKE ANY BLOOD THINNERS? (FOR EXAMPLE- COUMADIN, PLAVIX, AGGRENOX, PLATEL, PRADAXA, OR XARELTO) YES, WARFARIN . WHEN WAS YOUR LAST DOSE? DATE: TIME: . NEUROLOGY: HAVE YOU FALLEN IN THE PAST 12 MONTHS? NO . ANY NEW EXTREMITY NUMBNESS OR WEAKNESS? NO . CARDIOLOGY: DO YOU HAVE A PACEMAKER OR DEFIBRILLATOR? YES, PACEMAKER . RESPIRATORY: HAVE YOU BEEN SICK IN THE PAST WEEK? NO . FEVER NO . FLU LIKE SYMPTOMS? NO . COUGH NO . INTEGUMENTARY: DO YOU HAVE ANY RASHES OR OPEN SORES? NO . ALLERGIC/IMMUNO: ARE YOU ALLERGIC TO IV DYE? NO . ANY NEW ALLERGIES? NO . PSYCHIATRIC: DO YOU HAVE THOUGHTS OF HURTING YOURSELF OR SOMEONE ELSE? NO . ARE YOU ABUSED, NEGLECTED, OR IN AN UNSAFE ENVIRONMENT? NO . ENDOCRINOLOGY: ARE YOU DIABETIC? NO . OTHER: DO YOU NEED ANY PRESCRIPTIONS? YES, HYDROCODONE . IF YES, PLEASE LIST: ____ . ANY NEW PROBLEMS WITH YOUR MEDICATIONS? NO . WHEN DID YOU LAST EAT? ____ . WHEN DID YOU LAST DRINK? ____ . WHAT DID YOU LAST DRINK? ____ . NAME OF PERSON DRIVING YOU HOME? ____ . DO YOU HAVE ANY OTHER QUESTIONS OR CONCERNS NO . VITAL SIGNS WT 138.6 LBS, HT 410 IN, BMI 0.58 INDEX, BP 105/54 MM HG, HR 69 /MIN, RR 18 /MIN, TEMP 97.3 F, OXYGEN SAT % 99, NA INITIALS MP 1058, REVIEWED BY: MIKE. EXAMINATION GENERAL EXAMINATION: GENERAL APPEARANCE:AWAKE,ALERT ,PLEAASANT . PSYCHAFFECT NORMAL . LUNGS:LUNG CROWDER ARE CLEAR TO AUSCULTATION BILATERALLY. GOOD MOVEMENT OF AIR . HEART:S1, S2 IN A REGULAR RATE AND RHYTHM. NO SIGNIFICANT MURMURS, RUBS OR GALLOPS NOTED . ASSESSMENTS ARTHROPATHY - M12.9 (PRIMARY) TREATMENT ARTHROPATHY CONTINUE NORCO TABLET, 7.5-325 MG, 1 TABLET NEEDED, ORALLY, EVERY 6 HRS PRN MDD4 NOTES: ISTOP REGISTRY REVIEWED AND DEMONSTRATES COMPLLIANCE. BRINGS IN MEDICATIONS WHICH IS APPROPRIATE FOR WHAT WAS DISPENSED. RECENT URINE TOXICOLOGY REVIEWED. NO UNAUTHORIZED MEDICATIONS. NO ILLICIT SUBSTANCES AND PRESCRIBED MEDICATIONS WERE PRESENT. , RISKS AND BENEFITS OF NARCOTIC/OPIOD MEDICATIONS WERE REVIEWED WITH PATIENT - THIS INCLUDES BUT IS NOT LIMITED TO RISK OF DEPENDANCE/DEVELOPMENT OF ADDICTION, MOOD DISTURBANCE AND DEPRESSION, OSTEOPOROSIS, HORMONAL AND LABIDAL CHANGES, RESPIRATORY DEPRESSION AND . PATIENT IS ADVISED NOT TO DRIVE OR DRINK ALCOHOL WHILE ON THESE MEDICATIONS. PROCEDURE CODES FA211 ESTABILISHED PATIENT [facility] CHARGE DISPOSITION & COMMUNICATION FOLLOW UP 3 MONTHS ELECTRONICALLY SIGNED BY LILILAM ALVARADO ON 10/23/2018 AT 11:40 AM EDT DISCLAIMER : THIS IS A VISIT SUMMARY EXTRACTED FROM THE [employer] CHART. IT IS NOT A COPY OF THE [employer] PROGRESS NOTE. MTDD
== END ==
LOC: M PAIN 11:00
PROVIDERS: ATTEND Nurse Practitioner Family
DX: M12.9 Arthropathy, unspecified (principal); Z79.891 Long term (current) use of opiate analgesic; Z79.899 Other long term (current) drug therapy; Z88.0 Allergy status to penicillin; Z88.8 Allergy status to other drugs, medicaments and biological substances

== ENCOUNTER → 2018-11-05 | Outpatient (REF) | payer MEDICARE ==
[2018-11-05 12:51] LABS: INR 2.92; PROTHROMBIN TIME 31.1 SECONDS (12.1-14.4)
== END ==
LOC: M LAB REF 12:08
PROVIDERS: ATTEND Internal Medicine
DX: I48.2 Chronic atrial fibrillation (principal)

== ENCOUNTER → 2018-11-20 | Outpatient (CLI) | payer MEDICARE ==
--- NOTE | 2018-11-20 09:31 | REP ---
Clinical: History of abdominal aortic stent repair for evaluation. Technique: Real time brar scale and color evaluation using curved array transducer. Findings: The patient is noted to be status post abdominal iliac aortic stent graft placement extending from just below the level of the renal arteries into the bilateral common iliac arteries. There is no evidence for significant fluid beyond the gomez of the stent and there is no evidence for periaortic inflammatory change or fluid. Proximal aorta: 2.0 x 1.9 cm Aorta and renal arteries: 2.0 x 1.9 cm Mid aorta: 2.6 x 2.9 cm Distal aorta: 2.7 x 4.2 cm Right common iliac artery: 1.6 x 1.4 cm Left common iliac artery: 1.4 x 1.5 cm Impression: Abdominal aorto-iliac stent without evidence for leak by ultrasound examination. Electronically Signed by Jeff Aguilar MD 11/20/2018 09:23 A
== END ==
LOC: M RAD 07:22
PROVIDERS: ATTEND Internal Medicine
DX: I71.4 Abdominal aortic aneurysm, without rupture (principal)

== ENCOUNTER → 2018-12-03 | Outpatient (REF) | payer MEDICARE ==
[2018-12-03 13:44] LABS: INR 2.34; PROTHROMBIN TIME 25.5 SECONDS (11.8-14.0)
[2018-12-04 14:48] LABS: PERCENT SATURATION 20.1 % (13.2-45.0)
== END ==
LOC: M LAB REF 12:07
PROVIDERS: ATTEND Internal Medicine
DX: I48.2 Chronic atrial fibrillation (principal)

== ENCOUNTER → 2019-01-01 | Outpatient (REF) | payer MEDICARE ==
[2019-01-01 13:23] LABS: INR 2.77; PROTHROMBIN TIME 29.1 SECONDS (11.8-14.0)
== END ==
LOC: M LAB REF 12:17
PROVIDERS: ATTEND Internal Medicine
DX: I48.2 Chronic atrial fibrillation (principal)

== ENCOUNTER → 2019-01-27 | Outpatient (REF) | payer MEDICARE ==
[2019-01-28 14:21] LABS: PERCENT SATURATION 20.1 % (13.2-45.0)
[2019-01-29 13:14] LABS: FOLATE > 24.0 NG/ML; VITAMIN B12 LEVEL 738 PG/ML
== END ==
LOC: M LAB REF 13:51
PROVIDERS: ATTEND Internal Medicine
DX: D50.9 Iron deficiency anemia, unspecified (principal)

== ENCOUNTER → 2019-01-28 | Outpatient (CLI) | payer MEDICARE ==
--- NOTE | 2019-02-07 00:51 | ECWPNPC ---
PATIENT NAME: NADIRA MANSFIELD : 1935 GENDER: FEMALE VISIT DATE: 01/28/2019 DISCHARGE DATE: 01/28/19 1112 VISIT LOCKED DATE TIME: PHYSICIAN: MAYCO JACKSON RESOURCE: MAYCO JACKSON REASON FOR APPOINTMENT 1. MED MGMT/BACK HISTORY OF PRESENT ILLNESS HISTORY OF PRESENT ILLNESS: HERE FOR F/U OF CHRONICMID BACK PAIN.OVERALL DOING WELL.FINDS HYDROCODONE 7.5/325 Q6H PRN HELPFUL AT REDUCING PAIN AND KEEPING HER FUNCTIONAL.CONTINUES TO HAVE PAIN WITH CERTAIN ACTIVITIES IE LAUNDRY BUT IS ABLE TO GET RELIEF WITH SEVERE EPISODES OF PAIN WITH A HYDROCODONE AND HEAT.DENIES ADVERSE EFFECTS OF MEDICATION. PAIN THE PATIENT DESCRIBES THE PAIN... THE PATIENT DESCRIBES THE PAIN... PAIN THE PATIENT DESCRIBES THE PAIN... THE PATIENT DESCRIBES THE PAIN... FALL RISK SCREENING: SCREENING :NO FALLS REPORTED IN THE LAST YEAR CURRENT MEDICATIONS TAKING SENNA 8.6 MG TABLET TK 1 TO 2 TS PO QHS PRN ORAL TAKING WARFARIN SODIUM 5 MG TABLET TK DIRECTED ORAL TAKES 7.5MG ON , , AND SUN. TAKES 5MG ALL OTHER DAYS TAKING CARVEDILOL 25 MG TABLET TK 1 T PO BID ORAL TAKING LEVOTHYROXINE SODIUM 150 MCG TABLET TK 1 T PO QD ORAL TAKING LOSARTAN POTASSIUM 50 MG TABLET TK 1 T PO QHS ORAL TAKING POLYETHYLENE GLYCOL 3350 - POWDER MIX 17 GRAMS OF POWDER IN WATER OR JUICE AND DRINK DAILY ORAL TAKING LASIX 40 MG TABLET 1 TABLET ORALLY ONCE A DAY TAKING DORZOLAMIDE HCL 2 % SOLUTION INT 1 GTT IN OU BID OPHTHALMIC TAKING NITROSTAT 0.4 MG TABLET SUBLINGUAL SUBLINGUAL TAKING LATANOPROST 0.005 % SOLUTION INT 1 GTT IN EACH EYE IN THE MORNING OPHTHALMIC DAILY TAKING TURMERIC COMPLEX/BLACK PEPPER 500-3 MG CAPSULE ORALLY TAKING NORCO 7.5-325 MG TABLET 1 TABLET NEEDED ORALLY EVERY 6 HRS PRN MDD4 NOT-TAKING TYLENOL EXTRA STRENGTH 500 MG TABLET 1 TABLET NEEDED ORALLY EVERY 6 HRS NOT-TAKING FERROUS SULFATE 325 (65 FE) MG TABLET TK 1 T PO EVERY DAY ORAL NOT-TAKING CYMBALTA 20 MG CAPSULE DELAYED RELEASE PARTICLES 1 CAPSULE ORALLY DAILY, NOTES: NOT TAKING (BAD SIDE EFFECTS) NOT-TAKING BUTRANS 5 MCG/HR PATCH WEEKLY 1 PATCH TO SKIN TRANSDERMAL 1 PATCH Q 7 DAYS =MDD, NOTES: TOO EXPENSIVE MEDICATION LIST REVIEWED AND RECONCILED WITH THE PATIENT PAST MEDICAL HISTORY BACK PAIN ASTHMA ( PT DENIES) A FIB AORTIC VALVE DISORDER, CAD 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 OVERLOAD CHRONIC KIDNEY DISEASE HYPOTHYROIDISM OSTEOPOROSIS WITH HISTORY OF COMPRESSION FRACTURE SJOGRENS SYNDROME ANEMIA GLAUCOMA ALLERGIES ESPERANZA INHIBITORS: COUGH DEMEROL: N/V CIPRO: THROAT TIGHTEN NITROFURANTOIN: RASH AMOXICILLIN: ITCH / SWELLING HANDS CYMBALTA: DRY THROAT, DECREASE IN URINARY FREQUENCY - SIDE EFFECTS SURGICAL HISTORY AAA ENDOVASCULAR GRAFT 06/05/06 GLAUCOMA SHUNT 2010 & 2011 HEART VALVE 10/01 PACEMAKER 07/31 13 CAB X 3 2004 HERNIA X 3 12/24/17 FAMILY HISTORY FATHER: , DIAGNOSED WITH OTHER SPECIFIED CONDITIONS INFLUENCING HEALTH STATUS MOTHER: , UNSPECIFIED HEART DISEASE SOCIAL HISTORY GENERAL: TOBACCO USE ARE YOU A:NONSMOKER PAIN CLINIC PFS, CLERGY, PUBLIC HEALTH REFERRALS PFS REFERRAL NEEDED?NO CLERGY REFERRAL NEEDED?NO PUBLIC HEALTH REFERRAL NEEDED?NO WAS THE PROVIDER NOTIFIED OF ANY PERTINENT INFO? N/A HAS THE PATIENT BEEN EDUCATED REGARDING HIS/HER PLAN OF CARE?YES HAS THE PATIENT BEEN EDUCATED REGARDING PAIN, THE RISK FOR PAIN, THE IMPORTANCE OF EFFECTIVE PAIN MANAGEMENT, AND THE PAIN ASSESSMENT PROCESS?YES LATEX QUESTIONNAIRE LATEX ALLERGY : HAVE YOU EVER DEVELOPED ANY TYPE OF REACTION AFTER HANDLING LATEX PRODUCTS SUCH RUBBER GLOVES, CONDOMS, DIAPHRAGMS, BALLOONS, SOCKS, OR UNDERWEAR?NO LATEX ALLERGY : HAVE YOU EVER DEVELOPED ANY TYPE OF REACTION DURING OR AFTER DENTAL APPOINTMENT, VAGINAL/RECTAL EXAMINATION, SURGICAL PROCEDURE, OR ANY OTHER EXPOSURE?NO LATEX RISK : HAVE YOU EVER HAD ANY DIFFICULTY BREATHING OR HIVES AFTER EATING OR HANDLING ANY FRUITS, OR VEGETABLES; SUCH KIWI, BANANAS, STONE FRUITS, OR CHESTNUTSNO LATEX RISK : DO YOU HAVE A PREVIOUS PERSONAL HISTORY OF MORE THAN NINE SURGERIES, SPINA BIFIDA, OR REPEATED CATHERIZATIONS? NO LATEX RISK : ARE YOU FREQUENTLY EXPOSED TO LATEX PRODUCTS IN YOUR OCCUPATION?NO DATE ASKED : 01/28/2019 CAFFEINE CAFFEINE USE?YES HOW OFTEN AND HOW MUCH? COFFEE -2CUPS PER DAY ADVANCE DIRECTIVE ADVANCE DIRECTIVE DISCUSSED WITH PATIENT:YES HCP IS ISHA MANSFIELD EDUCATION LEVEL OF EDUCATION:NOT FINISHED COLLEGE MU-ISM [id number] GNOSTICIST LANGUAGE LANGUAGES SPOKEN:IRAQI DOMESTIC VIOLENCE DO YOU FEEL SAFE IN YOUR ENVIRONMENT?YES ALCOHOL SCREENING DID YOU HAVE A DRINK CONTAINING ALCOHOL IN THE PAST YEAR?NO POINTS0 INTERPRETATIONNEGATIVE RECREATIONAL DRUG USE DRUG USE?NO LEARNING BARRIERS / SPECIAL NEEDS BARRIERS TO LEARNING?NO HEARING IMPAIRED?NO VISION IMPAIRED?YES :CORRECTIVE LENSES COGNITIVELY IMPAIRED?NO READINESS TO LEARN?YES LEARNING PREFERENCES?NO LEARNING CAPABILITIES PRESENT?YES EMOTIONAL BARRIERS?NO SPECIAL DEVICES?YES :CANE, WALKER WHEN NEEDED STEAM HAND NEEDED?NO REVIEWED WITH PATIENT 03/25/18 1020 JSREVIEWED WITH PATIENT 04/24/18 1107 JSREVIEWED WITH PATIENT 07/23/18 1140 LASREVIEWED WITH PT 10/23/18 1116 BV01/28/19 REVIEWED WITH PT. AD. HOSPITALIZATION/MAJOR DIAGNOSTIC PROCEDURE SEE ABOVE SURGERY CHILD REVIEW OF SYSTEMS REVIEWED BY: PROVIDER: MAYCO VYAS . CONSTITUTIONAL: ANY CHANGE IN YOUR MEDICAL CONDITION? NO . CHILLS NO . FEVER NO . INFECTION: DO YOU HAVE NEW INFECTIONS? NO . DO YOU HAVE HISTORY OF MRSA? NO . MUSCULOSKELETAL: ANY NEW PATTERNS OF PAIN OR NUMBNESS? NO . GASTROENTEROLOGY: ANY NEW CHANGE IN BOWEL CONTROL? NO . GENITOURINARY: ANY NEW CHANGE IN BLADDER CONTROL? NO . IS THERE A CHANCE YOU COULD BE ? NO . HEMATOLOGY/LYMPH: DO YOU TAKE ANY BLOOD THINNERS? (FOR EXAMPLE- COUMADIN, PLAVIX, AGGRENOX, PLATEL, PRADAXA, OR XARELTO) YES, COUMADIN . WHEN WAS YOUR LAST DOSE? DATE: TIME:01/27/091929 . NEUROLOGY: HAVE YOU FALLEN IN THE PAST 12 MONTHS? NO . ANY NEW EXTREMITY NUMBNESS OR WEAKNESS? NO . CARDIOLOGY: DO YOU HAVE A PACEMAKER OR DEFIBRILLATOR? YES, PACEMAKER . RESPIRATORY: HAVE YOU BEEN SICK IN THE PAST WEEK? NO . FEVER NO . FLU LIKE SYMPTOMS? NO . COUGH NO . INTEGUMENTARY: DO YOU HAVE ANY RASHES OR OPEN SORES? NO . ALLERGIC/IMMUNO: ARE YOU ALLERGIC TO IV DYE? NO . ANY NEW ALLERGIES? NO . PSYCHIATRIC: DO YOU HAVE THOUGHTS OF HURTING YOURSELF OR SOMEONE ELSE? NO . ARE YOU ABUSED, NEGLECTED, OR IN AN UNSAFE ENVIRONMENT? NO . ENDOCRINOLOGY: ARE YOU DIABETIC? NO . OTHER: DO YOU NEED ANY PRESCRIPTIONS? YES . IF YES, PLEASE LIST: HYDROCODONE . ANY NEW PROBLEMS WITH YOUR MEDICATIONS? NO . WHEN DID YOU LAST EAT? ____ . WHEN DID YOU LAST DRINK? ____ . WHAT DID YOU LAST DRINK? ____ . NAME OF PERSON DRIVING YOU HOME? ____ . DO YOU HAVE ANY OTHER QUESTIONS OR CONCERNS YES, OCCASSIONAL SHARP PAIN RIGHT THIGH--? WHAT IS IT? . VITAL SIGNS WT 134.8 LBS, HT 410 IN, BMI 0.56 INDEX, BP 125/60 MM HG, HR 62 /MIN, RR 18 /MIN, TEMP 97.7 F, OXYGEN SAT % 98%, SAFE IN ENV? (Y/N) Y, NA INITIALS AW 1003, REVIEWED BY: AD. EXAMINATION GENERAL EXAMINATION: GENERALAWAKE,ALERT ,PLEAASANT . PSYCHAFFECT NORMAL . LUNGS:LUNG CROWDER ARE CLEAR TO AUSCULTATION BILATERALLY. GOOD MOVEMENT OF AIR . HEART:S1, S2 IN A REGULAR RATE AND RHYTHM. NO SIGNIFICANT MURMURS, RUBS OR GALLOPS NOTED . ASSESSMENTS ARTHROPATHY - M12.9 (PRIMARY) TREATMENT ARTHROPATHY REFILL NORCO TABLET, 7.5-325 MG, 1 TABLET NEEDED, ORALLY, EVERY 6 HRS PRN MDD4, 30 DAYS, 120, REFILLS 0 NOTES: ISTOP REGISTRY REVIEWED AND DEMONSTRATES COMPLLIANCE. (REF # ) BRINGS IN MEDICATIONS WHICH IS APPROPRIATE FOR WHAT WAS DISPENSED. RECENT URINE TOXICOLOGY REVIEWED. NO UNAUTHORIZED MEDICATIONS. NO ILLICIT SUBSTANCES AND PRESCRIBED MEDICATIONS WERE PRESENT. URINE TOX TODAY, RISKS AND BENEFITS OF NARCOTIC/OPIOD MEDICATIONS WERE REVIEWED WITH PATIENT - THIS INCLUDES BUT IS NOT LIMITED TO RISK OF DEPENDANCE/DEVELOPMENT OF ADDICTION, MOOD DISTURBANCE AND DEPRESSION, OSTEOPOROSIS, HORMONAL AND LABIDAL CHANGES, RESPIRATORY DEPRESSION AND . PATIENT IS ADVISED NOT TO DRIVE OR DRINK ALCOHOL WHILE ON THESE MEDICATIONS. PROCEDURE CODES FA211 ESTABILISHED PATIENT [facility] CHARGE DISPOSITION & COMMUNICATION FOLLOW UP 3 MONTHS (REASON: MED MGMNT) ELECTRONICALLY SIGNED BY LILLIAM ALVARADO ON 02/06/2019 AT 10:26 AM EDT DISCLAIMER : THIS IS A VISIT SUMMARY EXTRACTED FROM THE [employer] CHART. IT IS NOT A COPY OF THE [employer] PROGRESS NOTE. ROSEANN
== END ==
LOC: M PAIN 10:00
PROVIDERS: ATTEND Nurse Practitioner Family
DX: M12.9 Arthropathy, unspecified (principal); G89.29 Other chronic pain; J45.909 Unspecified asthma, uncomplicated; E03.9 Hypothyroidism, unspecified; Z95.0 Presence of cardiac pacemaker; Z88.1 Allergy status to other antibiotic agents; Z88.5 Allergy status to narcotic agent; Z88.8 Allergy status to other drugs, medicaments and biological substances; Z79.01 Long term (current) use of anticoagulants; Z79.899 Other long term (current) drug therapy

== ENCOUNTER → 2019-02-04 | Outpatient (REF) | payer MEDICARE ==
[2019-02-04 17:24] LABS: INR 3.77; PROTHROMBIN TIME 37.3 SECONDS (11.8-14.0)
== END ==
LOC: M LAB REF 16:16
PROVIDERS: ATTEND Internal Medicine
DX: I48.2 Chronic atrial fibrillation (principal)

== ENCOUNTER → 2019-02-18 | Outpatient (REF) | payer MEDICARE ==
[2019-02-18 13:38] LABS: INR 2.99
== END ==
LOC: M LAB REF 12:08
PROVIDERS: ATTEND Internal Medicine
DX: Z79.01 Long term (current) use of anticoagulants (principal); D50.9 Iron deficiency anemia, unspecified

== ENCOUNTER → 2019-03-07 | Outpatient (CLI) | payer MEDICARE ==
[2019-03-07 11:40] LABS: CREATININE FOR GFR 1.09 MG/DL (0.55-1.30); GLOMERULAR FILTRATION RATE 51.3 (>32)
== END ==
LOC: M LAB 10:25
PROVIDERS: ATTEND Surgery
DX: Z01.818 Encounter for other preprocedural examination (principal)

== ENCOUNTER → 2019-03-12 | Outpatient (CLI) | payer MEDICARE ==
[~2019-03-12] MED LIST changes: +GASTROGRAFIN SOLUTION 30ML (Q9963) As Ordered ONE; +ISOVUE-370 76% 100ML VIAL (Q9967) As Ordered ONE
--- NOTE | 2019-03-13 13:38 | REP ---
REASON: Right lower quadrant pain. COMPARISON: 02/21/2018. CONTRAST: 100 mL Isovue 370. There are multiple calcified and noncalcified nodules in the lung bases all stable. There is four chamber cardiac enlargement status quo. There are no pleural or pericardial effusions. Note is again made of previous median sternotomy. The liver, gallbladder, spleen, pancreas, adrenal glands, and kidneys are unchanged. There is intrapancreatic ductal dilatation status quo. The abdominal aorta and paraaortic regions are unchanged. Note is again made of an aortic biiliac stent graft status quo. There is no evidence of free fluid or free air. There is no significant change in the appearance of the bowel loops or their mesenteries. There is a ventral hernia through which only mesentery protrudes. The aperture measures approximately 2 cm. This represents a change from the prior exam. CT PELVIS: There is no significant change in the appearance of the pelvic contents. No mass or adenopathy has developed. There is no free fluid or free air. There is sigmoid colon diverticulosis status quo. Generally, there is a large amount of colonic content status quo. Bone window technique throughout the exam shows no significant change in the appearance of the osseous structures. The bones are demineralized and there are spinal degenerative changes status quo. Since the last examination the diffuse increase in the density throughout the imaged subcutaneous tissues has developed. IMPRESSION: 1. There is a ventral hernia as described above. 2. Chronic lung base changes as described above. 3. No acute intra-abdominal or intrapelvic disease has developed. 4. Diffuse subcutaneous edema suggestive of anasarca which should be correlated clinically. 5. Other findings as described above. Electronically Signed by Chet Paige DO 03/13/2019 04:55 P
== END ==
LOC: M RAD 12:22
PROVIDERS: ATTEND Surgery
DX: R10.84 Generalized abdominal pain (principal); R10.31 Right lower quadrant pain; K57.30 Diverticulosis of large intestine without perforation or abscess without bleeding; R91.8 Other nonspecific abnormal finding of lung field; K43.9 Ventral hernia without obstruction or gangrene
CPT/HCPCS: 74177; Q9963; Q9967

== ENCOUNTER → 2019-03-20 | Outpatient (REF) | payer MEDICARE ==
[~2019-03-20] MED LIST changes: -GASTROGRAFIN SOLUTION 30ML (Q9963) As Ordered ONE; -ISOVUE-370 76% 100ML VIAL (Q9967) As Ordered ONE
[2019-03-20 16:58] LABS: INR 3.47; PROTHROMBIN TIME 34.9 SECONDS (11.8-14.0)
== END ==
LOC: M LAB REF 16:22
PROVIDERS: ATTEND Internal Medicine
DX: Z79.01 Long term (current) use of anticoagulants (principal); I48.20 Chronic atrial fibrillation, unspecified; I10 Essential (primary) hypertension

== ENCOUNTER → 2019-04-14 | Outpatient (REF) | payer MEDICARE ==
[2019-04-14 19:01] LABS: INR 2.88; PROTHROMBIN TIME 30.1 SECONDS (11.8-14.0)
== END ==
LOC: M LAB REF 17:11
PROVIDERS: ATTEND Internal Medicine
DX: I48.20 Chronic atrial fibrillation, unspecified (principal)

== ENCOUNTER → 2019-04-29 | Outpatient (CLI) | payer MEDICARE ==
--- NOTE | 2019-05-16 05:03 | ECWPNPC ---
PATIENT NAME: NADIRA MANSFIELD : 1935 GENDER: FEMALE VISIT DATE: 04/29/2019 DISCHARGE DATE: 04/29/19 1201 VISIT LOCKED DATE TIME: PHYSICIAN: MAYCO JACKSON RESOURCE: MAYCO JACKSON REASON FOR APPOINTMENT 1. MEDICARE-MED MGMNT HISTORY OF PRESENT ILLNESS HISTORY OF PRESENT ILLNESS: HERE FOR F/U OF CHRONIC BACK PAIN.REPORTING AN INCREASE IN HER CHRONIC COMPLAINTS OF UPPER THORACIC AND RIGHT UPPER PARASPINAL PAIN.ALSO REPORTING AN INCREASE IN RIGHT ANTRIOR LATERAL THIGH PARATHESIAS OVER THE PAST MONTH.ALSO SUFFERING FROM RIGHT GROIN PAIN OVER THE PAST YEAR AND HAS HAD RECENT TESTING WITH DR VELASQUEZ WHO IS MAKING A REFERRAL TO US TESTING HAS COME UP NEGATIVE.PATIENT REPORTS BM'S 3X WK WITH USE OF LAXATIVE.THIS HAS BEEN HER NORM FOR SEVERAL YEARS. PAIN THE PATIENT DESCRIBES THE PAIN... FALL RISK SCREENING: SCREENING :NO FALLS REPORTED IN THE LAST YEAR CURRENT MEDICATIONS TAKING SENNA 8.6 MG TABLET TK 1 TO 2 TS PO QHS PRN ORAL TAKING WARFARIN SODIUM 5 MG TABLET TK DIRECTED ORAL TAKES 5 MG SUNDAY-SUNDAY, 7 MG SUNDAY TAKING CARVEDILOL 25 MG TABLET TK 1 T PO BID ORAL TAKING LEVOTHYROXINE SODIUM 150 MCG TABLET TK 1 T PO QD ORAL TAKING LOSARTAN POTASSIUM 50 MG TABLET TK 1 T PO QHS ORAL TAKING POLYETHYLENE GLYCOL 3350 - POWDER MIX 17 GRAMS OF POWDER IN WATER OR JUICE AND DRINK DAILY ORAL TAKING LASIX 40 MG TABLET 1 TABLET ORALLY ONCE A DAY TAKING DORZOLAMIDE HCL 2 % SOLUTION INT 1 GTT IN OU BID OPHTHALMIC TAKING NITROSTAT 0.4 MG TABLET SUBLINGUAL SUBLINGUAL TAKING LATANOPROST 0.005 % SOLUTION INT 1 GTT IN EACH EYE IN THE MORNING OPHTHALMIC DAILY TAKING NORCO 7.5-325 MG TABLET 1 TABLET NEEDED ORALLY EVERY 6 HRS PRN MDD4 NOT-TAKING TURMERIC COMPLEX/BLACK PEPPER 500-3 MG CAPSULE ORALLY NOT-TAKING TYLENOL EXTRA STRENGTH 500 MG TABLET 1 TABLET NEEDED ORALLY EVERY 6 HRS NOT-TAKING FERROUS SULFATE 325 (65 FE) MG TABLET TK 1 T PO EVERY DAY ORAL NOT-TAKING CYMBALTA 20 MG CAPSULE DELAYED RELEASE PARTICLES 1 CAPSULE ORALLY DAILY, NOTES: NOT TAKING (BAD SIDE EFFECTS) NOT-TAKING BUTRANS 5 MCG/HR PATCH WEEKLY 1 PATCH TO SKIN TRANSDERMAL 1 PATCH Q 7 DAYS =MDD, NOTES: TOO EXPENSIVE MEDICATION LIST REVIEWED AND RECONCILED WITH THE PATIENT PAST MEDICAL HISTORY BACK PAIN ASTHMA ( PT DENIES) A FIB AORTIC VALVE DISORDER, CAD 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 OVERLOAD CHRONIC KIDNEY DISEASE HYPOTHYROIDISM OSTEOPOROSIS WITH HISTORY OF COMPRESSION FRACTURE SJOGRENS SYNDROME ANEMIA GLAUCOMA ALLERGIES ESPERANZA INHIBITORS: COUGH DEMEROL: N/V CIPRO: THROAT TIGHTEN NITROFURANTOIN: RASH AMOXICILLIN: ITCH / SWELLING HANDS CYMBALTA: DRY THROAT, DECREASE IN URINARY FREQUENCY - SIDE EFFECTS SURGICAL HISTORY AAA ENDOVASCULAR GRAFT 06/05/06 GLAUCOMA SHUNT 2010 & 2011 HEART VALVE 10/01 PACEMAKER 07/31 13 CAB X 3 2004 HERNIA X 3 12/24/17 FAMILY HISTORY FATHER: , DIAGNOSED WITH OTHER SPECIFIED CONDITIONS INFLUENCING HEALTH STATUS MOTHER: , UNSPECIFIED HEART DISEASE SOCIAL HISTORY GENERAL: TOBACCO USE ARE YOU A:NONSMOKER PAIN CLINIC PFS, CLERGY, PUBLIC HEALTH REFERRALS PFS REFERRAL NEEDED?NO CLERGY REFERRAL NEEDED?NO PUBLIC HEALTH REFERRAL NEEDED?NO WAS THE PROVIDER NOTIFIED OF ANY PERTINENT INFO? N/A HAS THE PATIENT BEEN EDUCATED REGARDING HIS/HER PLAN OF CARE?YES HAS THE PATIENT BEEN EDUCATED REGARDING PAIN, THE RISK FOR PAIN, THE IMPORTANCE OF EFFECTIVE PAIN MANAGEMENT, AND THE PAIN ASSESSMENT PROCESS?YES LATEX QUESTIONNAIRE LATEX ALLERGY : HAVE YOU EVER DEVELOPED ANY TYPE OF REACTION AFTER HANDLING LATEX PRODUCTS SUCH RUBBER GLOVES, CONDOMS, DIAPHRAGMS, BALLOONS, SOCKS, OR UNDERWEAR?NO LATEX ALLERGY : HAVE YOU EVER DEVELOPED ANY TYPE OF REACTION DURING OR AFTER DENTAL APPOINTMENT, VAGINAL/RECTAL EXAMINATION, SURGICAL PROCEDURE, OR ANY OTHER EXPOSURE?NO LATEX RISK : HAVE YOU EVER HAD ANY DIFFICULTY BREATHING OR HIVES AFTER EATING OR HANDLING ANY FRUITS, OR VEGETABLES; SUCH KIWI, BANANAS, STONE FRUITS, OR CHESTNUTSNO LATEX RISK : DO YOU HAVE A PREVIOUS PERSONAL HISTORY OF MORE THAN NINE SURGERIES, SPINA BIFIDA, OR REPEATED CATHERIZATIONS? NO LATEX RISK : ARE YOU FREQUENTLY EXPOSED TO LATEX PRODUCTS IN YOUR OCCUPATION?NO DATE ASKED : 01/28/2019 CAFFEINE CAFFEINE USE?YES HOW OFTEN AND HOW MUCH? COFFEE -2CUPS PER DAY ADVANCE DIRECTIVE ADVANCE DIRECTIVE DISCUSSED WITH PATIENT:YES HCP IS ISHA MANSFIELD EDUCATION LEVEL OF EDUCATION:NOT FINISHED COLLEGE TENRIISM [id number] QUAKER LANGUAGE LANGUAGES SPOKEN:BRAZILIAN DOMESTIC VIOLENCE DO YOU FEEL SAFE IN YOUR ENVIRONMENT?YES ALCOHOL SCREENING DID YOU HAVE A DRINK CONTAINING ALCOHOL IN THE PAST YEAR?NO POINTS0 INTERPRETATIONNEGATIVE RECREATIONAL DRUG USE DRUG USE?NO LEARNING BARRIERS / SPECIAL NEEDS BARRIERS TO LEARNING?NO HEARING IMPAIRED?NO VISION IMPAIRED?YES COGNITIVELY IMPAIRED?NO :CORRECTIVE LENSES READINESS TO LEARN?YES LEARNING PREFERENCES?NO LEARNING CAPABILITIES PRESENT?YES EMOTIONAL BARRIERS?NO SPECIAL DEVICES?YES :CANE, WALKER WHEN NEEDED CARPET LOOM FIXER NEEDED?NO REVIEWED WITH PATIENT 03/25/18 1020 JSREVIEWED WITH PATIENT 04/24/18 1107 JSREVIEWED WITH PATIENT 07/23/18 1140 LASREVIEWED WITH PT 10/23/18 1116 BV01/28/19 REVIEWED WITH PT. ADREVIEWED WITH PATIENT 04/29/19 1108 JS. HOSPITALIZATION/MAJOR DIAGNOSTIC PROCEDURE SEE ABOVE SURGERY CHILD REVIEW OF SYSTEMS REVIEWED BY: PROVIDER: MAYCO VYAS . CONSTITUTIONAL: ANY CHANGE IN YOUR MEDICAL CONDITION? NO . CHILLS NO . FEVER NO . INFECTION: DO YOU HAVE NEW INFECTIONS? NO . DO YOU HAVE HISTORY OF MRSA? NO . MUSCULOSKELETAL: ANY NEW PATTERNS OF PAIN OR NUMBNESS? NO . GASTROENTEROLOGY: ANY NEW CHANGE IN BOWEL CONTROL? NO . GENITOURINARY: ANY NEW CHANGE IN BLADDER CONTROL? NO . IS THERE A CHANCE YOU COULD BE ? NO . HEMATOLOGY/LYMPH: DO YOU TAKE ANY BLOOD THINNERS? (FOR EXAMPLE- COUMADIN, PLAVIX, AGGRENOX, PLATEL, PRADAXA, OR XARELTO) YES, COUMADIN . WHEN WAS YOUR LAST DOSE? DATE: 04/28/19TIME: 1900 . NEUROLOGY: HAVE YOU FALLEN IN THE PAST 12 MONTHS? NO . ANY NEW EXTREMITY NUMBNESS OR WEAKNESS? YES, STATES NUMBNESS/WEAKNESS TO BILATERAL KNEES AND TINGLING TO RIGHT THIGH MUSCLE . CARDIOLOGY: DO YOU HAVE A PACEMAKER OR DEFIBRILLATOR? YES, PACEMAKER . RESPIRATORY: HAVE YOU BEEN SICK IN THE PAST WEEK? NO . FEVER NO . FLU LIKE SYMPTOMS? NO . COUGH NO . INTEGUMENTARY: DO YOU HAVE ANY RASHES OR OPEN SORES? NO . ALLERGIC/IMMUNO: ARE YOU ALLERGIC TO IV DYE? NO . ANY NEW ALLERGIES? NO . PSYCHIATRIC: DO YOU HAVE THOUGHTS OF HURTING YOURSELF OR SOMEONE ELSE? NO . ARE YOU ABUSED, NEGLECTED, OR IN AN UNSAFE ENVIRONMENT? NO . ENDOCRINOLOGY: ARE YOU DIABETIC? NO . OTHER: DO YOU NEED ANY PRESCRIPTIONS? YES . IF YES, PLEASE LIST: ____HYDROCODONE . ANY NEW PROBLEMS WITH YOUR MEDICATIONS? NO . WHEN DID YOU LAST EAT? ____ . WHEN DID YOU LAST DRINK? ____ . WHAT DID YOU LAST DRINK? ____ . NAME OF PERSON DRIVING YOU HOME? ____ . DO YOU HAVE ANY OTHER QUESTIONS OR CONCERNS YES, CONCERNED ABOUT RIGHT THIGH TINGLING . VITAL SIGNS WT 133.8 LBS, HT 410 IN, BMI 0.56 INDEX, BP 134/62 MM HG, HR 63 /MIN, RR 18 /MIN, TEMP 97.6 F, OXYGEN SAT % 96%, SAFE IN ENV? (Y/N) YES, NA INITIALS AW 1108, REVIEWED BY: MOLLY. EXAMINATION GENERAL EXAMINATION: GENERALAWAKE,ALERT ,PLEAASANT . PSYCHAFFECT NORMAL . LUNGS:LUNG CROWDER ARE CLEAR TO AUSCULTATION BILATERALLY. GOOD MOVEMENT OF AIR . HEART:S1, S2 IN A REGULAR RATE AND RHYTHM. NO SIGNIFICANT MURMURS, RUBS OR GALLOPS NOTED . ASSESSMENTS ARTHROPATHY - M12.9 (PRIMARY) TREATMENT ARTHROPATHY REFILL NORCO TABLET, 7.5-325 MG, 1 TABLET NEEDED, ORALLY, EVERY 6 HRS PRN MDD4, 30 DAYS, 120, REFILLS 0 NOTES: MIGDALIA ADVISED PATIENT NOT TO ADJUST HER OWN MEDICATION SHE IS TELLING ME TODAY THAT SHE HAS TAKEN 1 1/2 TABLETS ON A FEW OCCASIONS FOR RIGHT GROIN PAIN.TODAY WE DISCUSSED THE POTENTIAL CONSEQUENCES OF TAKING AN INCREASED DOSE OF NARCOTIC MEDICATION TO INCLUDE RESPIRATORY SUPPRESSION AND ., ISTOP REGISTRY REVIEWED AND DEMONSTRATES COMPLLIANCE. RECENT URINE TOXICOLOGY REVIEWED. NO UNAUTHORIZED MEDICATIONS. NO ILLICIT SUBSTANCES AND PRESCRIBED MEDICATIONS WERE PRESENT. , RISKS OF NARCOTIC/OPIOD MEDICATIONS INCLUDES BUT IS NOT LIMITED TO RISK OF DEPENDANCE/DEVELOPMENT OF ADDICTION, MOOD DISTURBANCE AND DEPRESSION, OSTEOPOROSIS, HORMONAL AND LABIDAL CHANGES, RESPIRATORY DEPRESSION AND . PATIENT IS ADVISED NOT TO DRIVE OR DRINK ALCOHOL WHILE ON THESE MEDICATIONS. PROCEDURE CODES FA211 ESTABILISHED PATIENT [facility] CHARGE DISPOSITION & COMMUNICATION FOLLOW UP HAS APT IN 2 WEEKS ELECTRONICALLY SIGNED BY LILLIAM ALVARADO ON 05/15/2019 AT 09:36 AM EST DISCLAIMER : THIS IS A VISIT SUMMARY EXTRACTED FROM THE [employer] CHART. IT IS NOT A COPY OF THE [employer] PROGRESS NOTE. ROSEANN
== END ==
LOC: M PAIN 10:30
PROVIDERS: ATTEND Nurse Practitioner Family
DX: M12.9 Arthropathy, unspecified (principal); G89.29 Other chronic pain; E03.9 Hypothyroidism, unspecified; Z95.0 Presence of cardiac pacemaker; Z88.1 Allergy status to other antibiotic agents; Z88.5 Allergy status to narcotic agent; Z88.8 Allergy status to other drugs, medicaments and biological substances; Z79.899 Other long term (current) drug therapy

== ENCOUNTER → 2019-05-09 | Outpatient (CLI) | payer MEDICARE ==
--- NOTE | 2019-05-28 01:37 | ECWPNPC ---
PATIENT NAME: NADIRA MANSFIELD : 1935 GENDER: FEMALE VISIT DATE: 05/09/2019 DISCHARGE DATE: 05/09/19 1144 VISIT LOCKED DATE TIME: PHYSICIAN: MAYCO JACKSON RESOURCE: MAYCO JACKSON REASON FOR APPOINTMENT 1. 30 UPA-NTH-HIABA GROIN/? TPI HISTORY OF PRESENT ILLNESS HISTORY OF PRESENT ILLNESS: HERE FOR EVALUATION OF RIGHT GROIN PAIN PER DR. VELASQUEZ.PAIN IS LOCATED IN RIGHT LOWER ABDOMINAL REGION.REPORTING INTERMITTENT RIGHT LOWER QUADRANT ABDOMINAL PAIN THAT SEEMS TO BE AGGREVATED WITH BOWEL MOVEMENTS.RATING PAIN VAS 10/10.PAIN IS PRESENT WITH CERTAIN ACTIVITIES. PAIN THE PATIENT DESCRIBES THE PAIN... FALL RISK SCREENING: SCREENING :NO FALLS REPORTED IN THE LAST YEAR CURRENT MEDICATIONS TAKING SENNA 8.6 MG TABLET TK 1 TO 2 TS PO QHS PRN ORAL TAKING WARFARIN SODIUM 5 MG TABLET TK DIRECTED ORAL TAKES 5 MG SUNDAY-SUNDAY, 7 MG SUNDAY TAKING CARVEDILOL 25 MG TABLET TK 1 T PO BID ORAL TAKING LEVOTHYROXINE SODIUM 150 MCG TABLET TK 1 T PO QD ORAL TAKING LOSARTAN POTASSIUM 50 MG TABLET TK 1 T PO QHS ORAL TAKING POLYETHYLENE GLYCOL 3350 - POWDER MIX 17 GRAMS OF POWDER IN WATER OR JUICE AND DRINK DAILY ORAL TAKING LASIX 40 MG TABLET 1 TABLET ORALLY ONCE A DAY TAKING DORZOLAMIDE HCL 2 % SOLUTION INT 1 GTT IN OU BID OPHTHALMIC TAKING NITROSTAT 0.4 MG TABLET SUBLINGUAL SUBLINGUAL TAKING LATANOPROST 0.005 % SOLUTION INT 1 GTT IN EACH EYE IN THE MORNING OPHTHALMIC DAILY TAKING NORCO 7.5-325 MG TABLET 1 TABLET NEEDED ORALLY EVERY 6 HRS PRN MDD4 NOT-TAKING TURMERIC COMPLEX/BLACK PEPPER 500-3 MG CAPSULE ORALLY NOT-TAKING TYLENOL EXTRA STRENGTH 500 MG TABLET 1 TABLET NEEDED ORALLY EVERY 6 HRS NOT-TAKING FERROUS SULFATE 325 (65 FE) MG TABLET TK 1 T PO EVERY DAY ORAL NOT-TAKING CYMBALTA 20 MG CAPSULE DELAYED RELEASE PARTICLES 1 CAPSULE ORALLY DAILY, NOTES: NOT TAKING (BAD SIDE EFFECTS) NOT-TAKING BUTRANS 5 MCG/HR PATCH WEEKLY 1 PATCH TO SKIN TRANSDERMAL 1 PATCH Q 7 DAYS =MDD, NOTES: TOO EXPENSIVE MEDICATION LIST REVIEWED AND RECONCILED WITH THE PATIENT PAST MEDICAL HISTORY BACK PAIN ASTHMA ( PT DENIES) A FIB AORTIC VALVE DISORDER, CAD 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 OVERLOAD CHRONIC KIDNEY DISEASE HYPOTHYROIDISM OSTEOPOROSIS WITH HISTORY OF COMPRESSION FRACTURE SJOGRENS SYNDROME ANEMIA GLAUCOMA ALLERGIES ESPERANZA INHIBITORS: COUGH DEMEROL: N/V CIPRO: THROAT TIGHTEN NITROFURANTOIN: RASH AMOXICILLIN: ITCH / SWELLING HANDS CYMBALTA: DRY THROAT, DECREASE IN URINARY FREQUENCY - SIDE EFFECTS SURGICAL HISTORY AAA ENDOVASCULAR GRAFT 06/05/06 GLAUCOMA SHUNT 2010 & 2011 HEART VALVE 10/01 PACEMAKER 07/31 13 CAB X 3 2005 HERNIA X 3 12/24/17 FAMILY HISTORY FATHER: , DIAGNOSED WITH OTHER SPECIFIED CONDITIONS INFLUENCING HEALTH STATUS MOTHER: , UNSPECIFIED HEART DISEASE SOCIAL HISTORY GENERAL: TOBACCO USE ARE YOU A:NONSMOKER PAIN CLINIC PFS, CLERGY, PUBLIC HEALTH REFERRALS PFS REFERRAL NEEDED?NO CLERGY REFERRAL NEEDED?NO PUBLIC HEALTH REFERRAL NEEDED?NO WAS THE PROVIDER NOTIFIED OF ANY PERTINENT INFO? N/A HAS THE PATIENT BEEN EDUCATED REGARDING HIS/HER PLAN OF CARE?YES HAS THE PATIENT BEEN EDUCATED REGARDING PAIN, THE RISK FOR PAIN, THE IMPORTANCE OF EFFECTIVE PAIN MANAGEMENT, AND THE PAIN ASSESSMENT PROCESS?YES LATEX QUESTIONNAIRE LATEX ALLERGY : HAVE YOU EVER DEVELOPED ANY TYPE OF REACTION AFTER HANDLING LATEX PRODUCTS SUCH RUBBER GLOVES, CONDOMS, DIAPHRAGMS, BALLOONS, SOCKS, OR UNDERWEAR?NO LATEX ALLERGY : HAVE YOU EVER DEVELOPED ANY TYPE OF REACTION DURING OR AFTER DENTAL APPOINTMENT, VAGINAL/RECTAL EXAMINATION, SURGICAL PROCEDURE, OR ANY OTHER EXPOSURE?NO DATE ASKED : 01/28/2019 LATEX RISK : HAVE YOU EVER HAD ANY DIFFICULTY BREATHING OR HIVES AFTER EATING OR HANDLING ANY FRUITS, OR VEGETABLES; SUCH KIWI, BANANAS, STONE FRUITS, OR CHESTNUTSNO LATEX RISK : DO YOU HAVE A PREVIOUS PERSONAL HISTORY OF MORE THAN NINE SURGERIES, SPINA BIFIDA, OR REPEATED CATHERIZATIONS? NO LATEX RISK : ARE YOU FREQUENTLY EXPOSED TO LATEX PRODUCTS IN YOUR OCCUPATION?NO CAFFEINE CAFFEINE USE?YES HOW OFTEN AND HOW MUCH? COFFEE -2CUPS PER DAY ADVANCE DIRECTIVE ADVANCE DIRECTIVE DISCUSSED WITH PATIENT:YES HCP IS ISHA MANSFIELD EDUCATION LEVEL OF EDUCATION:NOT FINISHED COLLEGE ORIENTAL ORTHODOX [id number] CONFUCIANIST LANGUAGE LANGUAGES SPOKEN:DIVEHI DOMESTIC VIOLENCE DO YOU FEEL SAFE IN YOUR ENVIRONMENT?YES ALCOHOL SCREENING DID YOU HAVE A DRINK CONTAINING ALCOHOL IN THE PAST YEAR?NO POINTS0 INTERPRETATIONNEGATIVE RECREATIONAL DRUG USE DRUG USE?NO LEARNING BARRIERS / SPECIAL NEEDS BARRIERS TO LEARNING?NO HEARING IMPAIRED?NO VISION IMPAIRED?YES COGNITIVELY IMPAIRED?NO :CORRECTIVE LENSES READINESS TO LEARN?YES LEARNING PREFERENCES?NO LEARNING CAPABILITIES PRESENT?YES EMOTIONAL BARRIERS?NO SPECIAL DEVICES?YES :CANE, WALKER WHEN NEEDED AIR EXPORT AGENT NEEDED?NO REVIEWED WITH PATIENT 03/25/18 1020 JSREVIEWED WITH PATIENT 04/24/18 1107 JSREVIEWED WITH PATIENT 07/23/18 1140 LASREVIEWED WITH PT 10/23/18 1116 BV01/28/19 REVIEWED WITH PT. ADREVIEWED WITH PATIENT 04/29/19 1108 JS. HOSPITALIZATION/MAJOR DIAGNOSTIC PROCEDURE SEE ABOVE SURGERY CHILD REVIEW OF SYSTEMS REVIEWED BY: PROVIDER: MAYCO VYAS . CONSTITUTIONAL: ANY CHANGE IN YOUR MEDICAL CONDITION? NO . CHILLS NO . FEVER NO . INFECTION: DO YOU HAVE NEW INFECTIONS? NO . DO YOU HAVE HISTORY OF MRSA? NO . MUSCULOSKELETAL: ANY NEW PATTERNS OF PAIN OR NUMBNESS? INCREASED PAIN RIGHT SIDE . GASTROENTEROLOGY: ANY NEW CHANGE IN BOWEL CONTROL? NO . GENITOURINARY: ANY NEW CHANGE IN BLADDER CONTROL? NO . IS THERE A CHANCE YOU COULD BE ? NO . HEMATOLOGY/LYMPH: DO YOU TAKE ANY BLOOD THINNERS? (FOR EXAMPLE- COUMADIN, PLAVIX, AGGRENOX, PLATEL, PRADAXA, OR XARELTO) NO . WHEN WAS YOUR LAST DOSE? DATE: TIME: . NEUROLOGY: HAVE YOU FALLEN IN THE PAST 12 MONTHS? NO . ANY NEW EXTREMITY NUMBNESS OR WEAKNESS? NO . CARDIOLOGY: DO YOU HAVE A PACEMAKER OR DEFIBRILLATOR? YES . RESPIRATORY: HAVE YOU BEEN SICK IN THE PAST WEEK? NO . FEVER NO . FLU LIKE SYMPTOMS? NO . COUGH NO . INTEGUMENTARY: DO YOU HAVE ANY RASHES OR OPEN SORES? NO . ALLERGIC/IMMUNO: ARE YOU ALLERGIC TO IV DYE? NO . ANY NEW ALLERGIES? NO . PSYCHIATRIC: DO YOU HAVE THOUGHTS OF HURTING YOURSELF OR SOMEONE ELSE? NO . ARE YOU ABUSED, NEGLECTED, OR IN AN UNSAFE ENVIRONMENT? NO . ENDOCRINOLOGY: ARE YOU DIABETIC? NO . OTHER: DO YOU NEED ANY PRESCRIPTIONS? NO . IF YES, PLEASE LIST: ____ . ANY NEW PROBLEMS WITH YOUR MEDICATIONS? NO . WHEN DID YOU LAST EAT? ____ . WHEN DID YOU LAST DRINK? ____ . WHAT DID YOU LAST DRINK? ____ . NAME OF PERSON DRIVING YOU HOME? ____ . DO YOU HAVE ANY OTHER QUESTIONS OR CONCERNS NO . VITAL SIGNS WT 133.0 LBS, HT 410 IN, BMI 0.56 INDEX, BP 155/69 MM HG, HR 60 /MIN, RR 18 /MIN, TEMP 96.8 F, OXYGEN SAT % 100%, NA INITIALS AW 1105. EXAMINATION GENERAL EXAMINATION: GENERALNO ACUTE DISTRESS, WELL NOURISHED AND HYDRATED. PSYCHAPPROPRIATE MOOD AND AFFECT . NECK:NO LYMPHADENOPATHY, SUPPLE, NO THYROMEGALLY, NO JVD OR BRUITS. LUNGS:CLEAR TO AUSCULTATION BILATERALLY, NO WHEEZES, RHONCHI, RALES. HEART:NO MURMURS, REGULAR RATE AND RHYTHM. ABDOMEN: MILD TENDERNESS OVERR RIGHT LOWER QUADRANT ABDOMEN.. DIAGNOSTIC TESTS REVIEWED CT ABD/[id number]-YMF-27/23/19. ASSESSMENTS RIGHT LOWER QUADRANT ABDOMINAL PAIN - R10.31 (PRIMARY) TREATMENT RIGHT LOWER QUADRANT ABDOMINAL PAIN CONTINUE NORCO TABLET, 7.5-325 MG, 1 TABLET NEEDED, ORALLY, EVERY 6 HRS PRN MDD4 START GABAPENTIN CAPSULE, 100 MG, 1 CAPSULE, ORALLY, BID, 30 DAY(S), 60 CAPSULE, REFILLS 1 NOTES: ISTOP REGISTRY REVIEWED AND DEMONSTRATES COMPLLIANCE. BRINGS IN MEDICATIONS WHICH IS APPROPRIATE FOR WHAT WAS DISPENSED. RECENT URINE TOXICOLOGY REVIEWED. NO UNAUTHORIZED MEDICATIONS. NO ILLICIT SUBSTANCES AND PRESCRIBED MEDICATIONS WERE PRESENT. PREVENTIVE MEDICINE PAIN CLINIC TEACHING: MEDICATIONS GABAPENTIN NEW MED EDUCATION MATERIAL PRINTED FOR PT AND DISCUSSED WITH PT WHO VERBALIZES UNDERSTANDING. PROCEDURE CODES FA211 ESTABILISHED PATIENT [facility] CHARGE DISPOSITION & COMMUNICATION FOLLOW UP 6 WEEKS (REASON: ABD PAIN AND BACK PAIN MED MGMNT) ELECTRONICALLY SIGNED BY LILLIAM ALVARADO ON 05/27/2019 AT 04:29 PM EST DISCLAIMER : THIS IS A VISIT SUMMARY EXTRACTED FROM THE [employer] CHART. IT IS NOT A COPY OF THE [employer] PROGRESS NOTE. MTDD
== END ==
LOC: M PAIN 10:30
PROVIDERS: ATTEND Nurse Practitioner Family
DX: R10.31 Right lower quadrant pain (principal)

== ENCOUNTER → 2019-05-19 | Outpatient (REF) | payer MEDICARE ==
[2019-05-19 12:50] LABS: INR 2.55; PROTHROMBIN TIME 27.3 SECONDS (11.8-14.0)
== END ==
LOC: M LAB REF 12:19
PROVIDERS: ATTEND Internal Medicine
DX: I48.20 Chronic atrial fibrillation, unspecified (principal)

== ENCOUNTER → 2019-06-16 | Outpatient (CLI) | payer MEDICARE ==
--- NOTE | 2019-06-18 01:49 | ECWPNPC ---
PATIENT NAME: NADIRA MANSFIELD : 1935 GENDER: FEMALE VISIT DATE: 06/16/2019 DISCHARGE DATE: 06/16/19 1207 VISIT LOCKED DATE TIME: PHYSICIAN: MAYCO JACKSON RESOURCE: MAYCO JACKSON REASON FOR APPOINTMENT 1. ABD PAIN AND BACK PAIN MED MGMNT HISTORY OF PRESENT ILLNESS HISTORY OF PRESENT ILLNESS: HERE FOR FOLLOW-UP OF CHRONIC GENERALIZED BACK PAIN. WAS STARTED ON GABAPENTIN 100 MG WITH INSTRUCTIONS TO TRY ONE AT NIGHT FOR SEVERAL DAYS AND THEN INCREASE TO TWICE A DAY, IF TOLERABLE. HISTORY OF MULTIPLE MEDICATION INTOLERANCES. I GAVE THIS TO HER FOR COMPLAINTS OF PERSISTENT RIGHT LOWER QUADRANT ABDOMINAL PAIN THAT MAY BE RELATED TO NEUROPATHIC PAIN POST OPERATIVELY. STATES THAT SHE FELL SHORTLY AFTER STARTING 100 MG AT NIGHT AND INJURED HER RIGHT ARM. THIS HAPPENED A FEW WEEKS AGO. SHE CONTINUES TO BE VERY UNCOMFORTABLE AROUND THE RIB AREA OF THE RIGHT THORACIC REGION. STATES AREA OF INJURY IS GETTING BETTER SINCE FALL. SHE DID NOT SEEK MEDICAL ATTENTION. SHE HAS TRIALED CBD, ALTHOUGH AND LOTION. CBD OIL BY MOUTH CAUSED HEARTBURN. STATES THE LOTION DID NOT WORK. IT SEEMS THAT THE ONLY MEDICATION SHE CAN TOLERATE IS WHAT WE ARE. HE CURRENTLY USING FOR HER CHRONIC PAIN, WHICH IS HYDROCODONE 7.5/325 MG STRENGTH. CURRENTLY USING 4 TABLETS PER DAY. I HAVE OFFERED HER REFERRAL TO PALLIATIVE CARE TO SEE IF THEY HAVE ANY FURTHER MEDICATION REGIMENS. SHE IS NOT INTERESTED IN HAVING ANYTHING BUT WHAT WE CURRENTLY PRESCRIBE AND IS ASKING IF WE COULD CONTINUE TO PRESCRIBE THIS AND BE SEEN HERE. RATING PAIN LEVEL A 10 OVER 10 VAS. SHE IS NOT INTERESTED IN INTERVENTIONAL INJECTION THERAPY.NO DISTRESS AND SMILING DURING VISIT. PAIN THE PATIENT DESCRIBES THE PAIN... FALL RISK SCREENING: SCREENING :NO FALLS REPORTED IN THE LAST YEAR CURRENT MEDICATIONS TAKING SENNA 8.6 MG TABLET TK 1 TO 2 TS PO QHS PRN ORAL TAKING WARFARIN SODIUM 5 MG TABLET TK DIRECTED ORAL TAKES 5 MG SUNDAY-SUNDAY, 7 MG SUNDAY TAKING CARVEDILOL 25 MG TABLET TK 1 T PO BID ORAL TAKING LEVOTHYROXINE SODIUM 150 MCG TABLET TK 1 T PO QD ORAL TAKING LOSARTAN POTASSIUM 50 MG TABLET TK 1 T PO QHS ORAL TAKING POLYETHYLENE GLYCOL 3350 - POWDER MIX 17 GRAMS OF POWDER IN WATER OR JUICE AND DRINK DAILY ORAL TAKING LASIX 40 MG TABLET 1 TABLET ORALLY ONCE A DAY TAKING DORZOLAMIDE HCL 2 % SOLUTION INT 1 GTT IN OU BID OPHTHALMIC TAKING NITROSTAT 0.4 MG TABLET SUBLINGUAL SUBLINGUAL TAKING LATANOPROST 0.005 % SOLUTION INT 1 GTT IN EACH EYE IN THE MORNING OPHTHALMIC DAILY TAKING NORCO 7.5-325 MG TABLET 1 TABLET NEEDED ORALLY EVERY 6 HRS PRN MDD4 NOT-TAKING GABAPENTIN 100 MG CAPSULE 1 CAPSULE ORALLY BID NOT-TAKING TURMERIC COMPLEX/BLACK PEPPER 500-3 MG CAPSULE ORALLY NOT-TAKING TYLENOL EXTRA STRENGTH 500 MG TABLET 1 TABLET NEEDED ORALLY EVERY 6 HRS NOT-TAKING FERROUS SULFATE 325 (65 FE) MG TABLET TK 1 T PO EVERY DAY ORAL NOT-TAKING CYMBALTA 20 MG CAPSULE DELAYED RELEASE PARTICLES 1 CAPSULE ORALLY DAILY, NOTES: NOT TAKING (BAD SIDE EFFECTS) NOT-TAKING BUTRANS 5 MCG/HR PATCH WEEKLY 1 PATCH TO SKIN TRANSDERMAL 1 PATCH Q 7 DAYS =MDD, NOTES: TOO EXPENSIVE MEDICATION LIST REVIEWED AND RECONCILED WITH THE PATIENT PAST MEDICAL HISTORY BACK PAIN ASTHMA ( PT DENIES) A FIB AORTIC VALVE DISORDER, CAD 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 OVERLOAD CHRONIC KIDNEY DISEASE HYPOTHYROIDISM OSTEOPOROSIS WITH HISTORY OF COMPRESSION FRACTURE SJOGRENS SYNDROME ANEMIA GLAUCOMA ALLERGIES ESPERANZA INHIBITORS: COUGH DEMEROL: N/V CIPRO: THROAT TIGHTEN NITROFURANTOIN: RASH AMOXICILLIN: ITCH / SWELLING HANDS CYMBALTA: DRY THROAT, DECREASE IN URINARY FREQUENCY - SIDE EFFECTS GABAPENTIN: DIZZINESS - SIDE EFFECTS SURGICAL HISTORY AAA ENDOVASCULAR GRAFT 06/05/06 GLAUCOMA SHUNT 2010 & 2011 HEART VALVE 10/01 PACEMAKER 07/31 13 CAB X 3 2004 HERNIA X 3 12/24/17 FAMILY HISTORY FATHER: , DIAGNOSED WITH OTHER SPECIFIED CONDITIONS INFLUENCING HEALTH STATUS MOTHER: , UNSPECIFIED HEART DISEASE SOCIAL HISTORY GENERAL: TOBACCO USE ARE YOU A:NONSMOKER PAIN CLINIC PFS, CLERGY, PUBLIC HEALTH REFERRALS PFS REFERRAL NEEDED?NO CLERGY REFERRAL NEEDED?NO PUBLIC HEALTH REFERRAL NEEDED?NO WAS THE PROVIDER NOTIFIED OF ANY PERTINENT INFO? N/A HAS THE PATIENT BEEN EDUCATED REGARDING HIS/HER PLAN OF CARE?YES HAS THE PATIENT BEEN EDUCATED REGARDING PAIN, THE RISK FOR PAIN, THE IMPORTANCE OF EFFECTIVE PAIN MANAGEMENT, AND THE PAIN ASSESSMENT PROCESS?YES LATEX QUESTIONNAIRE LATEX ALLERGY : HAVE YOU EVER DEVELOPED ANY TYPE OF REACTION AFTER HANDLING LATEX PRODUCTS SUCH RUBBER GLOVES, CONDOMS, DIAPHRAGMS, BALLOONS, SOCKS, OR UNDERWEAR?NO LATEX ALLERGY : HAVE YOU EVER DEVELOPED ANY TYPE OF REACTION DURING OR AFTER DENTAL APPOINTMENT, VAGINAL/RECTAL EXAMINATION, SURGICAL PROCEDURE, OR ANY OTHER EXPOSURE?NO LATEX RISK : HAVE YOU EVER HAD ANY DIFFICULTY BREATHING OR HIVES AFTER EATING OR HANDLING ANY FRUITS, OR VEGETABLES; SUCH KIWI, BANANAS, STONE FRUITS, OR CHESTNUTSNO LATEX RISK : DO YOU HAVE A PREVIOUS PERSONAL HISTORY OF MORE THAN NINE SURGERIES, SPINA BIFIDA, OR REPEATED CATHERIZATIONS? NO LATEX RISK : ARE YOU FREQUENTLY EXPOSED TO LATEX PRODUCTS IN YOUR OCCUPATION?NO DATE ASKED : 01/28/2019 CAFFEINE CAFFEINE USE?YES HOW OFTEN AND HOW MUCH? COFFEE -2CUPS PER DAY ADVANCE DIRECTIVE ADVANCE DIRECTIVE DISCUSSED WITH PATIENT:YES HCP IS ISHA MANSFIELD EDUCATION LEVEL OF EDUCATION:NOT FINISHED COLLEGE YAZDANISM [id number] RESTORATIONISM LANGUAGE LANGUAGES SPOKEN:[place] DOMESTIC VIOLENCE DO YOU FEEL SAFE IN YOUR ENVIRONMENT?YES ALCOHOL SCREENING DID YOU HAVE A DRINK CONTAINING ALCOHOL IN THE PAST YEAR?NO POINTS0 INTERPRETATIONNEGATIVE RECREATIONAL DRUG USE DRUG USE?NO LEARNING BARRIERS / SPECIAL NEEDS BARRIERS TO LEARNING?NO HEARING IMPAIRED?NO VISION IMPAIRED?YES COGNITIVELY IMPAIRED?NO :CORRECTIVE LENSES READINESS TO LEARN?YES LEARNING PREFERENCES?NO LEARNING CAPABILITIES PRESENT?YES EMOTIONAL BARRIERS?NO SPECIAL DEVICES?YES :CANE, WALKER WHEN NEEDED OCCUPATIONAL THERAPY PROFESSOR NEEDED?NO REVIEWED WITH PATIENT 03/25/18 1020 JSREVIEWED WITH PATIENT 04/24/18 1107 JSREVIEWED WITH PATIENT 07/23/18 1140 LASREVIEWED WITH PT 10/23/18 1116 BV01/28/19 REVIEWED WITH PT. ADREVIEWED WITH PATIENT 04/29/19 1108 JSREVIEWED WITH PATIENT 06/16/2019 1142 JS. HOSPITALIZATION/MAJOR DIAGNOSTIC PROCEDURE SEE ABOVE SURGERY CHILD REVIEW OF SYSTEMS REVIEWED BY: PROVIDER: MAYCO VYAS . CONSTITUTIONAL: ANY CHANGE IN YOUR MEDICAL CONDITION? YES, STATES UNABLE TO TAKE GABAPENTIN DUE TO DIZZINESS/LIGHTHEADEDNESS . CHILLS NO . FEVER NO . INFECTION: DO YOU HAVE NEW INFECTIONS? NO . DO YOU HAVE HISTORY OF MRSA? NO . MUSCULOSKELETAL: ANY NEW PATTERNS OF PAIN OR NUMBNESS? NO . GASTROENTEROLOGY: ANY NEW CHANGE IN BOWEL CONTROL? NO . GENITOURINARY: ANY NEW CHANGE IN BLADDER CONTROL? NO . IS THERE A CHANCE YOU COULD BE ? NO . HEMATOLOGY/LYMPH: DO YOU TAKE ANY BLOOD THINNERS? (FOR EXAMPLE- COUMADIN, PLAVIX, AGGRENOX, PLATEL, PRADAXA, OR XARELTO) YES, COUMADIN . WHEN WAS YOUR LAST DOSE? DATE: 06/15/19TIME: 1700 . NEUROLOGY: HAVE YOU FALLEN IN THE PAST 12 MONTHS? YES, STATES FALL ABOUT 2 WEEKS AGO DUE TO DIZZINESS/LIGHT HEADEDNESS FROM STARTING THE GABAPENTIN - LANDED ON HER RIGHT ARM UNDER HER RIB CAGE. STATES PAIN WHEN TAKING DEEP BREATHS AND COUGHING. STATES NO ED VISIT. . ANY NEW EXTREMITY NUMBNESS OR WEAKNESS? NO . CARDIOLOGY: DO YOU HAVE A PACEMAKER OR DEFIBRILLATOR? YES, PACEMAKER . RESPIRATORY: HAVE YOU BEEN SICK IN THE PAST WEEK? NO . FEVER NO . FLU LIKE SYMPTOMS? NO . COUGH NO . INTEGUMENTARY: DO YOU HAVE ANY RASHES OR OPEN SORES? NO . ALLERGIC/IMMUNO: ARE YOU ALLERGIC TO IV DYE? NO . ANY NEW ALLERGIES? YES - GABAPENTIN CAUSES DIZZINESS . PSYCHIATRIC: DO YOU HAVE THOUGHTS OF HURTING YOURSELF OR SOMEONE ELSE? NO . ARE YOU ABUSED, NEGLECTED, OR IN AN UNSAFE ENVIRONMENT? NO . ENDOCRINOLOGY: ARE YOU DIABETIC? NO . OTHER: DO YOU NEED ANY PRESCRIPTIONS? YES . IF YES, PLEASE LIST: ____HYDROCODONE . ANY NEW PROBLEMS WITH YOUR MEDICATIONS? YES, GABAPENTIN MADE HER DIZZY/LIGHTHEADED - STOPPED TAKING IT, STATES THE DIZZINESS AND LIGHTHEADED SENASTION HAS GONE AWAY SINCE STOPPING IT . WHEN DID YOU LAST EAT? ____ . WHEN DID YOU LAST DRINK? ____ . WHAT DID YOU LAST DRINK? ____ . NAME OF PERSON DRIVING YOU HOME? ____ . DO YOU HAVE ANY OTHER QUESTIONS OR CONCERNS YES, STATES PAIN IN RIBS SINCE FALL - WONDERING HOW LONG IT MIGHT LAST . VITAL SIGNS WT 132.8 LBS, HT 410 IN, BMI 0.56 INDEX, BP 134/60 MM HG, HR 64 /MIN, RR 18 /MIN, TEMP 97.8 F, OXYGEN SAT % 98%, SAFE IN ENV? (Y/N) YES, NA INITIALS AW 1133, REVIEWED BY: MOLLY. EXAMINATION GENERAL EXAMINATION: GENERALNO ACUTE DISTRESS, WELL NOURISHED AND HYDRATED. PSYCHAPPROPRIATE MOOD AND AFFECT . NECK:NO LYMPHADENOPATHY, SUPPLE, NO THYROMEGALLY, NO JVD OR BRUITS. LUNGS:CLEAR TO AUSCULTATION BILATERALLY, NO WHEEZES, RHONCHI, RALES. HEART:NO MURMURS, REGULAR RATE AND RHYTHM. ASSESSMENTS ARTHROPATHY - M12.9 (PRIMARY) OTHER CHRONIC PAIN - G89.29 TREATMENT ARTHROPATHY REFILL NORCO TABLET, 7.5-325 MG, 1 TABLET NEEDED, ORALLY, EVERY 6 HRS PRN MDD4, 30 DAYS, 120, REFILLS 0 NOTES: ISTOP REGISTRY REVIEWED AND DEMONSTRATES COMPLLIANCE. BRINGS IN MEDICATIONS WHICH IS APPROPRIATE FOR WHAT WAS DISPENSED. RECENT URINE TOXICOLOGY REVIEWED. NO UNAUTHORIZED MEDICATIONS. NO ILLICIT SUBSTANCES AND PRESCRIBED MEDICATIONS WERE PRESENT. , RISKS OF NARCOTIC/OPIOD MEDICATIONS INCLUDES BUT IS NOT LIMITED TO RISK OF DEPENDANCE/DEVELOPMENT OF ADDICTION, MOOD DISTURBANCE AND DEPRESSION, OSTEOPOROSIS, HORMONAL AND LABIDAL CHANGES, RESPIRATORY DEPRESSION AND . PATIENT IS ADVISED NOT TO DRIVE OR DRINK ALCOHOL WHILE ON THESE MEDICATIONS. PROCEDURE CODES FA211 ESTABILISHED PATIENT [facility] CHARGE DISPOSITION & COMMUNICATION FOLLOW UP 3 MONTHS (REASON: MED MGNT) ELECTRONICALLY SIGNED BY LILLIAM ALVARADO ON 06/17/2019 AT 10:20 AM EST DISCLAIMER : THIS IS A VISIT SUMMARY EXTRACTED FROM THE [employer] CHART. IT IS NOT A COPY OF THE [employer] PROGRESS NOTE. LISSD
== END ==
LOC: M PAIN 11:15
PROVIDERS: ATTEND Nurse Practitioner Family
DX: M12.9 Arthropathy, unspecified (principal); G89.29 Other chronic pain; J45.909 Unspecified asthma, uncomplicated; E03.9 Hypothyroidism, unspecified; Z88.1 Allergy status to other antibiotic agents; Z88.5 Allergy status to narcotic agent; Z88.8 Allergy status to other drugs, medicaments and biological substances; Z79.01 Long term (current) use of anticoagulants; Z95.0 Presence of cardiac pacemaker; Z79.899 Other long term (current) drug therapy

== ENCOUNTER → 2019-09-15 | Outpatient (CLI) | payer MEDICARE ==
--- NOTE | 2019-09-18 03:43 | ECWPNPC ---
PATIENT NAME: NADIRA MANSFIELD : 1935 GENDER: FEMALE VISIT DATE: 09/15/2019 DISCHARGE DATE: 09/15/19 0605 VISIT LOCKED DATE TIME: PHYSICIAN: MAYCO JACKSON RESOURCE: MAYCO JACKSON REASON FOR APPOINTMENT 1. 3 MONTHS [phone] HISTORY OF PRESENT ILLNESS HISTORY OF PRESENT ILLNESS: PATIENT IS AGREEABLE TO TELEPHONE VISIT TODAY. THIS IS A ROUTINE MEDICINE MANAGEMENT VISIT FOR PERSISTENT GENERALIZED BACK PAIN AND JOINT PAIN. CURRENTLY USING HYDROCODONE 7.5/325 EVERY 6 HOURS NEEDED FOR SEVERE PAIN EPISODES. FINDS THAT THIS MEDICATION PLUS HEATING PAD VERY HELPFUL AT REDUCING HER PAIN. DENIES ADVERSE SIDE EFFECTS. WE HAVE TRIED MULTIPLE DIFFERENT MEDICATIONS OVER THE YEAR WITHOUT IMPROVEMENT OR WITH SIDE EFFECTS. RATING PAIN VAS 10 OVER 10. PAIN THE PATIENT DESCRIBES THE PAIN... FALL RISK SCREENING: SCREENING :NO FALLS REPORTED IN THE LAST YEAR CURRENT MEDICATIONS TAKING SENNA 8.6 MG TABLET TK 1 TO 2 TS PO QHS PRN ORAL TAKING WARFARIN SODIUM 5 MG TABLET TK DIRECTED ORAL TAKES 5 MG SUNDAY-SUNDAY, 7 MG SUNDAY TAKING CARVEDILOL 25 MG TABLET TK 1 T PO BID ORAL TAKING LEVOTHYROXINE SODIUM 150 MCG TABLET TK 1 T PO QD ORAL TAKING LOSARTAN POTASSIUM 50 MG TABLET TK 1 T PO QHS ORAL TAKING POLYETHYLENE GLYCOL 3350 - POWDER MIX 17 GRAMS OF POWDER IN WATER OR JUICE AND DRINK DAILY ORAL TAKING LASIX 40 MG TABLET 1 TABLET ORALLY ONCE A DAY TAKING DORZOLAMIDE HCL 2 % SOLUTION INT 1 GTT IN OU BID OPHTHALMIC TAKING NITROSTAT 0.4 MG TABLET SUBLINGUAL SUBLINGUAL TAKING LATANOPROST 0.005 % SOLUTION INT 1 GTT IN EACH EYE IN THE MORNING OPHTHALMIC DAILY TAKING NORCO 7.5-325 MG TABLET 1 TABLET NEEDED ORALLY EVERY 6 HRS PRN MDD4 NOT-TAKING GABAPENTIN 100 MG CAPSULE 1 CAPSULE ORALLY BID NOT-TAKING TURMERIC COMPLEX/BLACK PEPPER 500-3 MG CAPSULE ORALLY NOT-TAKING TYLENOL EXTRA STRENGTH 500 MG TABLET 1 TABLET NEEDED ORALLY EVERY 6 HRS NOT-TAKING FERROUS SULFATE 325 (65 FE) MG TABLET TK 1 T PO EVERY DAY ORAL NOT-TAKING CYMBALTA 20 MG CAPSULE DELAYED RELEASE PARTICLES 1 CAPSULE ORALLY DAILY, NOTES: NOT TAKING (BAD SIDE EFFECTS) NOT-TAKING BUTRANS 5 MCG/HR PATCH WEEKLY 1 PATCH TO SKIN TRANSDERMAL 1 PATCH Q 7 DAYS =MDD, NOTES: TOO EXPENSIVE MEDICATION LIST REVIEWED AND RECONCILED WITH THE PATIENT PAST MEDICAL HISTORY BACK PAIN ASTHMA ( PT DENIES) A FIB AORTIC VALVE DISORDER, CAD 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 OVERLOAD CHRONIC KIDNEY DISEASE HYPOTHYROIDISM OSTEOPOROSIS WITH HISTORY OF COMPRESSION FRACTURE SJOGRENS SYNDROME ANEMIA GLAUCOMA ALLERGIES ESPERANZA INHIBITORS: COUGH DEMEROL: N/V CIPRO: THROAT TIGHTEN NITROFURANTOIN: RASH AMOXICILLIN: ITCH / SWELLING HANDS CYMBALTA: DRY THROAT, DECREASE IN URINARY FREQUENCY - SIDE EFFECTS GABAPENTIN: DIZZINESS - SIDE EFFECTS SURGICAL HISTORY AAA ENDOVASCULAR GRAFT 06/05/06 GLAUCOMA SHUNT 2010 & 2011 HEART VALVE 10/01 PACEMAKER 07/31 13 CAB X 3 2004 HERNIA X 3 12/24/17 FAMILY HISTORY FATHER: , DIAGNOSED WITH OTHER SPECIFIED CONDITIONS INFLUENCING HEALTH STATUS MOTHER: , UNSPECIFIED HEART DISEASE SOCIAL HISTORY GENERAL: TOBACCO USE ARE YOU A:NONSMOKER LATEX QUESTIONNAIRE LATEX ALLERGY : HAVE YOU EVER DEVELOPED ANY TYPE OF REACTION AFTER HANDLING LATEX PRODUCTS SUCH RUBBER GLOVES, CONDOMS, DIAPHRAGMS, BALLOONS, SOCKS, OR UNDERWEAR?NO LATEX ALLERGY : HAVE YOU EVER DEVELOPED ANY TYPE OF REACTION DURING OR AFTER DENTAL APPOINTMENT, VAGINAL/RECTAL EXAMINATION, SURGICAL PROCEDURE, OR ANY OTHER EXPOSURE?NO LATEX RISK : HAVE YOU EVER HAD ANY DIFFICULTY BREATHING OR HIVES AFTER EATING OR HANDLING ANY FRUITS, OR VEGETABLES; SUCH KIWI, BANANAS, STONE FRUITS, OR CHESTNUTSNO LATEX RISK : DO YOU HAVE A PREVIOUS PERSONAL HISTORY OF MORE THAN NINE SURGERIES, SPINA BIFIDA, OR REPEATED CATHERIZATIONS? NO LATEX RISK : ARE YOU FREQUENTLY EXPOSED TO LATEX PRODUCTS IN YOUR OCCUPATION?NO DATE ASKED : 09/15/2019 ALCOHOL SCREENING DID YOU HAVE A DRINK CONTAINING ALCOHOL IN THE PAST YEAR?NO POINTS0 INTERPRETATIONNEGATIVE RECREATIONAL DRUG USE DRUG USE?NO CAFFEINE CAFFEINE USE?YES HOW OFTEN AND HOW MUCH? COFFEE -2CUPS PER DAY RESTORATIONISM [id number] LATTER-DAY LANGUAGE LANGUAGES SPOKEN:[place]EN[place] EDUCATION LEVEL OF EDUCATION:NOT FINISHED COLLEGE LEARNING BARRIERS / SPECIAL NEEDS BARRIERS TO LEARNING?NO HEARING IMPAIRED?NO VISION IMPAIRED?YES COGNITIVELY IMPAIRED?NO :CORRECTIVE LENSES READINESS TO LEARN?YES LEARNING PREFERENCES?NO LEARNING CAPABILITIES PRESENT?YES EMOTIONAL BARRIERS?NO SPECIAL DEVICES?YES :CANE, WALKER WHEN NEEDED CRITICAL SYSTEMS TECHNICIAN NEEDED?NO DOMESTIC VIOLENCE DO YOU FEEL SAFE IN YOUR ENVIRONMENT?YES NEW PATIENT PAIN DIARY TODAY'S VISITNOTES 09/15/2019 PATIENT DESCRIBES PAIN :ACHING, SORE, OTHER DULL ACHING FROM 0-10, WHAT LEVEL IS YOUR PAIN TODAY?10 PAIN CLINIC PFS, CLERGY, PUBLIC HEALTH REFERRALS PFS REFERRAL NEEDED?NO CLERGY REFERRAL NEEDED?NO PUBLIC HEALTH REFERRAL NEEDED?NO WAS THE PROVIDER NOTIFIED OF ANY PERTINENT INFO? N/A HAS THE PATIENT BEEN EDUCATED REGARDING HIS/HER PLAN OF CARE?YES HAS THE PATIENT BEEN EDUCATED REGARDING PAIN, THE RISK FOR PAIN, THE IMPORTANCE OF EFFECTIVE PAIN MANAGEMENT, AND THE PAIN ASSESSMENT PROCESS?YES ADVANCE DIRECTIVE ADVANCE DIRECTIVE DISCUSSED WITH PATIENT:YES HCP IS ISHA MANSFIELD HOSPITALIZATION/MAJOR DIAGNOSTIC PROCEDURE SEE ABOVE SURGERY CHILD REVIEW OF SYSTEMS REVIEWED BY: PROVIDER: MAYCO VYAS . CONSTITUTIONAL: ANY CHANGE IN YOUR MEDICAL CONDITION? NO . CHILLS NO . FEVER NO . INFECTION: DO YOU HAVE NEW INFECTIONS? NO . DO YOU HAVE HISTORY OF MRSA? NO . MUSCULOSKELETAL: ANY NEW PATTERNS OF PAIN OR NUMBNESS? NO . GASTROENTEROLOGY: ANY NEW CHANGE IN BOWEL CONTROL? NO . GENITOURINARY: ANY NEW CHANGE IN BLADDER CONTROL? NO . IS THERE A CHANCE YOU COULD BE ? NO . HEMATOLOGY/LYMPH: DO YOU TAKE ANY BLOOD THINNERS? (FOR EXAMPLE- COUMADIN, PLAVIX, AGGRENOX, PLATEL, PRADAXA, OR XARELTO) YES, COUMADIN . WHEN WAS YOUR LAST DOSE? DATE: 09/14/2019TIME: 1800 . NEUROLOGY: HAVE YOU FALLEN IN THE PAST 12 MONTHS? YES, STATES FALL RECENTLY FROM GETTING OUT OF BED TO FAST AND GETTING DIZZY, NO MAJOR INJURIES, NO ED VISIT . ANY NEW EXTREMITY NUMBNESS OR WEAKNESS? NO . CARDIOLOGY: DO YOU HAVE A PACEMAKER OR DEFIBRILLATOR? YES, PACEMAKER . RESPIRATORY: HAVE YOU BEEN SICK IN THE PAST WEEK? NO . FEVER NO . FLU LIKE SYMPTOMS? NO . COUGH NO . INTEGUMENTARY: DO YOU HAVE ANY RASHES OR OPEN SORES? NO . ALLERGIC/IMMUNO: ARE YOU ALLERGIC TO IV DYE? NO . ANY NEW ALLERGIES? NO . PSYCHIATRIC: DO YOU HAVE THOUGHTS OF HURTING YOURSELF OR SOMEONE ELSE? NO . ARE YOU ABUSED, NEGLECTED, OR IN AN UNSAFE ENVIRONMENT? NO . ENDOCRINOLOGY: ARE YOU DIABETIC? NO . OTHER: DO YOU NEED ANY PRESCRIPTIONS? NO . IF YES, PLEASE LIST: ____ . ANY NEW PROBLEMS WITH YOUR MEDICATIONS? NO . WHEN DID YOU LAST EAT? ____ . WHEN DID YOU LAST DRINK? ____ . WHAT DID YOU LAST DRINK? ____ . NAME OF PERSON DRIVING YOU HOME? ____ . DO YOU HAVE ANY OTHER QUESTIONS OR CONCERNS NO . ASSESSMENTS ARTHROPATHY - M12.9 (PRIMARY) TREATMENT ARTHROPATHY CONTINUE NORCO TABLET, 7.5-325 MG, 1 TABLET NEEDED, ORALLY, EVERY 6 HRS PRN MDD4 NOTES: ISTOP REGISTRY REVIEWED AND DEMONSTRATES COMPLLIANCE. RECENT URINE TOXICOLOGY REVIEWED. NO UNAUTHORIZED MEDICATIONS. NO ILLICIT SUBSTANCES AND PRESCRIBED MEDICATIONS WERE PRESENT. URINE TOX AT FOLLOW-UP TOTAL TIME SPENT DURING TELEPHONE VISIT WAS APPROXIMATELY 12 MINUTES. OTHERS NOTES: NO VITALS OBTAINED DUE TO PHONE VISIT. DISPOSITION & COMMUNICATION FOLLOW UP 2 MONTHS (REASON: URINE TOX/MED MANAGEMENT) ELECTRONICALLY SIGNED BY LILLIAM ALVARADO ON 09/17/2019 AT 02:42 PM EDT DISCLAIMER : THIS IS A VISIT SUMMARY EXTRACTED FROM THE [employer] CHART. IT IS NOT A COPY OF THE [employer] PROGRESS NOTE. ROSEANN
== END ==
LOC: M PAIN 11:00
PROVIDERS: ATTEND Nurse Practitioner Family
DX: M12.9 Arthropathy, unspecified (principal); Z79.891 Long term (current) use of opiate analgesic; Z79.899 Other long term (current) drug therapy; Z88.1 Allergy status to other antibiotic agents; Z88.2 Allergy status to sulfonamides; Z88.5 Allergy status to narcotic agent; Z88.8 Allergy status to other drugs, medicaments and biological substances

== ENCOUNTER → 2019-11-11 | Outpatient (REF) | payer MEDICARE ==
[2019-11-11 17:23] LABS: C REACTIVE PROTEIN QUANTITATIV 0.39 MG/DL (0.00-0.30); RHEUMATOID FACTOR QUANT 27.9 IU/ML (<15.0)
[2019-11-13 13:07] LABS: ANTI DOUBLE STRAND-DNA AB 11 IU/mL (0-9); ANTINUCLEAR ANTIBODIES DIRECT Positive (Negative); RNP ANTIBODIES <0.2 AI (0.0-0.9); SJOGREN'S ANTI SS-A <0.2 AI (0.0-0.9); SJOGREN'S ANTI SS-B <0.2 AI (0.0-0.9); SMITH ANTIBODIES <0.2 AI (0.0-0.9)
== END ==
LOC: M LAB REF 16:07
PROVIDERS: ATTEND Internal Medicine
DX: I48.20 Chronic atrial fibrillation, unspecified (principal); M35.00 Sjogren syndrome, unspecified

== ENCOUNTER → 2019-11-14 | Outpatient (CLI) | payer MEDICARE ==
--- NOTE | 2019-11-19 04:15 | ECWPNPC ---
PATIENT NAME: NADIRA MANSFIELD : 1935 GENDER: FEMALE VISIT DATE: 11/14/2019 DISCHARGE DATE: 11/14/19 1211 VISIT LOCKED DATE TIME: PHYSICIAN: MAYCO JACKSON RESOURCE: MAYCO JACKSON REASON FOR APPOINTMENT 1. URINE TOX/MED MANAGEMENT- SON CLEARED. PT NEEDS ASSISTANCE HISTORY OF PRESENT ILLNESS GENERAL: -. FALL RISK SCREENING: SCREENING :ONE FALL WITH INJURY IN THE PAST YEAR PAIN SCREENING: PATIENT HAS A COMPLAINT OF ACUTE OR CHRONIC PAIN :YES 11/14/19 INTENSITY OF PAIN (SCALE OF 1 TO 10):10 WHAT DOES YOUR PAIN FEEL LIKE:ACHING, BURNING, SHARP, STABBING, THROBBING, SHOOTING PAIN IS INCREASED BY: ACTIVITY PAIN IS DECREASED BY: MEDS, HEAT, REST NURSING NOTE: -. PAIN CENTER INTAKE QUESTIONS: DO YOU HAVE A HISTORY OF MRSA? :NO DO YOU TAKE A BLOOD THINNERS? :YES WARFARIN DO YOU HAVE ANY BLEEDING DISORDERS? :NO ANY NEW NUMBNESS OR WEAKNESS IN YOUR LEGS OR ARMS? :NO ANY PACEMAKER,DEFIBRILLATOR, OR DORSAL COLUMN STIMULATOR? :YES PACEMAKER DO YOU HAVE ANY RASHES OR OPEN SORES? :NO ARE YOU ALLERGIC TO IV DYE? :NO ARE YOU DIABETIC? :NO ANY NEW PROBLEMS WITH YOUR MEDICATIONS? :NO HAVE YOU RECEIVED A VACCINE IN THE PAST 30 DAYS? :NO DO YOU PLAN TO RECEIVE A VACCINE IN THE NEXT 21 DAYS? :NO DO YOU NEED ANY PRESCRIPTION? :NO DO YOU TAKE ANY IMMUNOSUPPRESSIVE MEDICATIONS? :NO IS THERE A CHANCE YOU COULD BE ? :NO ARE YOU BREAST FEEDING? :NO HISTORY OF PRESENT ILLNESS: THIS IS A ROUTINE MEDICINE MANAGEMENT VISIT FOR PERSISTENT GENERALIZED BACK PAIN AND JOINT PAIN. CURRENTLY USING HYDROCODONE 7.5/325 EVERY 6 HOURS NEEDED FOR SEVERE PAIN EPISODES. FINDS THAT THIS MEDICATION PLUS HEATING PAD VERY HELPFUL AT REDUCING HER PAIN. DENIES ADVERSE SIDE EFFECTS. WE HAVE TRIED MULTIPLE DIFFERENT MEDICATIONS OVER THE YEAR WITHOUT IMPROVEMENT OR WITH SIDE EFFECTS. RATING PAIN VAS 10 OVER 10. PAIN THE PATIENT DESCRIBES THE PAIN... CURRENT MEDICATIONS TAKING WARFARIN SODIUM 5 MG TABLET TK DIRECTED ORAL TAKES 5 MG SUNDAY-SUNDAY, 7 MG SUNDAY TAKING CARVEDILOL 25 MG TABLET TK 1 T PO BID ORAL TAKING LEVOTHYROXINE SODIUM 150 MCG TABLET TK 1 T PO QD ORAL TAKING LOSARTAN POTASSIUM 50 MG TABLET TK 1 T PO QHS ORAL TAKING POLYETHYLENE GLYCOL 3350 - POWDER MIX 17 GRAMS OF POWDER IN WATER OR JUICE AND DRINK DAILY ORAL TAKING LASIX 40 MG TABLET 1 TABLET ORALLY ONCE A DAY TAKING DORZOLAMIDE HCL 2 % SOLUTION INT 1 GTT IN OU BID OPHTHALMIC TAKING NITROSTAT 0.4 MG TABLET SUBLINGUAL SUBLINGUAL TAKING LATANOPROST 0.005 % SOLUTION INT 1 GTT IN EACH EYE IN THE MORNING OPHTHALMIC DAILY TAKING NORCO 7.5-325 MG TABLET 1 TABLET NEEDED ORALLY EVERY 6 HRS PRN MDD4 NOT-TAKING SENNA 8.6 MG TABLET TK 1 TO 2 TS PO QHS PRN ORAL NOT-TAKING GABAPENTIN 100 MG CAPSULE 1 CAPSULE ORALLY BID NOT-TAKING TURMERIC COMPLEX/BLACK PEPPER 500-3 MG CAPSULE ORALLY NOT-TAKING TYLENOL EXTRA STRENGTH 500 MG TABLET 1 TABLET NEEDED ORALLY EVERY 6 HRS NOT-TAKING FERROUS SULFATE 325 (65 FE) MG TABLET TK 1 T PO EVERY DAY ORAL NOT-TAKING CYMBALTA 20 MG CAPSULE DELAYED RELEASE PARTICLES 1 CAPSULE ORALLY DAILY, NOTES: NOT TAKING (BAD SIDE EFFECTS) NOT-TAKING BUTRANS 5 MCG/HR PATCH WEEKLY 1 PATCH TO SKIN TRANSDERMAL 1 PATCH Q 7 DAYS =MDD, NOTES: TOO EXPENSIVE MEDICATION LIST REVIEWED AND RECONCILED WITH THE PATIENT PAST MEDICAL HISTORY BACK PAIN ASTHMA ( PT DENIES) A FIB AORTIC VALVE DISORDER, CAD 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 OVERLOAD CHRONIC KIDNEY DISEASE HYPOTHYROIDISM OSTEOPOROSIS WITH HISTORY OF COMPRESSION FRACTURE SJOGRENS SYNDROME ANEMIA GLAUCOMA ALLERGIES ESPERANZA INHIBITORS: COUGH DEMEROL: N/V CIPRO: THROAT TIGHTEN NITROFURANTOIN: RASH AMOXICILLIN: ITCH / SWELLING HANDS CYMBALTA: DRY THROAT, DECREASE IN URINARY FREQUENCY - SIDE EFFECTS GABAPENTIN: DIZZINESS - SIDE EFFECTS SURGICAL HISTORY AAA ENDOVASCULAR GRAFT 06/05/06 GLAUCOMA SHUNT 2010 & 2011 HEART VALVE 10/01 PACEMAKER 07/31 14 CAB X 3 2005 HERNIA X 3 12/24/17 FAMILY HISTORY FATHER: , DIAGNOSED WITH OTHER SPECIFIED CONDITIONS INFLUENCING HEALTH STATUS MOTHER: , UNSPECIFIED HEART DISEASE SOCIAL HISTORY GENERAL: TOBACCO USE ARE YOU A:NONSMOKER LATEX QUESTIONNAIRE LATEX ALLERGY : HAVE YOU EVER DEVELOPED ANY TYPE OF REACTION AFTER HANDLING LATEX PRODUCTS SUCH RUBBER GLOVES, CONDOMS, DIAPHRAGMS, BALLOONS, SOCKS, OR UNDERWEAR?NO LATEX ALLERGY : HAVE YOU EVER DEVELOPED ANY TYPE OF REACTION DURING OR AFTER DENTAL APPOINTMENT, VAGINAL/RECTAL EXAMINATION, SURGICAL PROCEDURE, OR ANY OTHER EXPOSURE?NO DATE ASKED : 09/15/2019 LATEX RISK : HAVE YOU EVER HAD ANY DIFFICULTY BREATHING OR HIVES AFTER EATING OR HANDLING ANY FRUITS, OR VEGETABLES; SUCH KIWI, BANANAS, STONE FRUITS, OR CHESTNUTSNO LATEX RISK : DO YOU HAVE A PREVIOUS PERSONAL HISTORY OF MORE THAN NINE SURGERIES, SPINA BIFIDA, OR REPEATED CATHERIZATIONS? NO LATEX RISK : ARE YOU FREQUENTLY EXPOSED TO LATEX PRODUCTS IN YOUR OCCUPATION?NO ALCOHOL SCREENING DID YOU HAVE A DRINK CONTAINING ALCOHOL IN THE PAST YEAR?NO POINTS0 INTERPRETATIONNEGATIVE RECREATIONAL DRUG USE DRUG USE?NO CAFFEINE CAFFEINE USE?YES HOW OFTEN AND HOW MUCH? COFFEE -2CUPS PER DAY MUSLIM [id number] BAPTISM LANGUAGE LANGUAGES SPOKEN:GEORGIAN EDUCATION LEVEL OF EDUCATION:NOT FINISHED COLLEGE LEARNING BARRIERS / SPECIAL NEEDS BARRIERS TO LEARNING?NO HEARING IMPAIRED?NO VISION IMPAIRED?YES COGNITIVELY IMPAIRED?NO :CORRECTIVE LENSES READINESS TO LEARN?YES LEARNING PREFERENCES?NO LEARNING CAPABILITIES PRESENT?YES EMOTIONAL BARRIERS?NO SPECIAL DEVICES?YES :CANE, WALKER WHEN NEEDED SED HIGH SCHOOL TEACHER NEEDED?NO DOMESTIC VIOLENCE DO YOU FEEL SAFE IN YOUR ENVIRONMENT?YES NEW PATIENT PAIN DIARY TODAY'S VISITNOTES 09/15/2019 PATIENT DESCRIBES PAIN :ACHING, SORE, OTHER DULL ACHING FROM 0-10, WHAT LEVEL IS YOUR PAIN TODAY?10 PAIN CLINIC PFS, CLERGY, PUBLIC HEALTH REFERRALS PFS REFERRAL NEEDED?NO CLERGY REFERRAL NEEDED?NO PUBLIC HEALTH REFERRAL NEEDED?NO WAS THE PROVIDER NOTIFIED OF ANY PERTINENT INFO? N/A HAS THE PATIENT BEEN EDUCATED REGARDING HIS/HER PLAN OF CARE?YES HAS THE PATIENT BEEN EDUCATED REGARDING PAIN, THE RISK FOR PAIN, THE IMPORTANCE OF EFFECTIVE PAIN MANAGEMENT, AND THE PAIN ASSESSMENT PROCESS?YES ADVANCE DIRECTIVE ADVANCE DIRECTIVE DISCUSSED WITH PATIENT:YES HCP IS ISHA [facility]ANS[facility] HOSPITALIZATION/MAJOR DIAGNOSTIC PROCEDURE SEE ABOVE SURGERY CHILD REVIEW OF SYSTEMS CONSTITUTIONAL: ANY RECENT FEVER NO . CHILLS NO . WEIGHT CHANGE OF UNKNOWN REASONS NO . GASTROENTEROLOGY: NEW UNEXPLAINABLE CHANGES IN BOWEL CONTROL NO . CONSTIPATION NO . GENITOURINARY: ANY NEW CHANGE IN BLADDER CONTROL? NO . NEUROLOGY: NEW ONSET DIZZINESS OR NEUROLOGICAL CHANGES NOT MENTIONED NO . NEW NUMBNESS OR PAIN PATTERNS NOT MENTIONED AND PERTINENT TO TODAY'S VISIT NO . CARDIOLOGY: NEW CHEST PRESSURE NO . NEW CHEST PAIN NO . RESPIRATORY: UNEXPLAINABLE COUGH NO . NEW SHORTNESS OF BREATH NO . VITAL SIGNS WT 133.2 LBS, HT 410 IN, BMI 0.56 INDEX, BP 175/74 MM HG, HR 61 /MIN, RR 18 /MIN, TEMP 98.0 F, OXYGEN SAT % 98%, NA INITIALS SC 11:25. EXAMINATION GENERAL EXAMINATION: GENERALNO ACUTE DISTRESS, WELL NOURISHED AND HYDRATED. PSYCHAPPROPRIATE MOOD AND AFFECT . NECK:NO LYMPHADENOPATHY, SUPPLE, NO THYROMEGALLY, NO JVD OR BRUITS. LUNGS:CLEAR TO AUSCULTATION BILATERALLY, NO WHEEZES, RHONCHI, RALES. HEART:NO MURMURS, REGULAR RATE AND RHYTHM. ASSESSMENTS ARTHROPATHY - M12.9 (PRIMARY) TREATMENT ARTHROPATHY CONTINUE NORCO TABLET, 7.5-325 MG, 1 TABLET NEEDED, ORALLY, EVERY 6 HRS PRN MDD4 NOTES: ISTOP REGISTRY REVIEWED AND DEMONSTRATES COMPLLIANCE. BRINGS IN MEDICATIONS WHICH IS APPROPRIATE FOR WHAT WAS DISPENSED. RECENT URINE TOXICOLOGY REVIEWED. NO UNAUTHORIZED MEDICATIONS. NO ILLICIT SUBSTANCES AND PRESCRIBED MEDICATIONS WERE PRESENT. URINE TOXICOLOGY TODAY , RISKS OF NARCOTIC/OPIOD MEDICATIONS INCLUDES BUT IS NOT LIMITED TO RISK OF DEPENDANCE/DEVELOPMENT OF ADDICTION, MOOD DISTURBANCE AND DEPRESSION, OSTEOPOROSIS, HORMONAL AND LABIDAL CHANGES, RESPIRATORY DEPRESSION AND . PATIENT IS ADVISED NOT TO DRIVE OR DRINK ALCOHOL WHILE ON THESE MEDICATIONS. DISPOSITION & COMMUNICATION FOLLOW UP 3 MONTHS (REASON: ARTHROPATHY, MED MANAGEMENT) ELECTRONICALLY SIGNED BY LILLIAM ALVARADO ON 11/18/2019 AT 08:51 AM EDT DISCLAIMER : THIS IS A VISIT SUMMARY EXTRACTED FROM THE [employer] CHART. IT IS NOT A COPY OF THE [employer] PROGRESS NOTE. ROSEANN
== END ==
LOC: M PAIN 11:30
PROVIDERS: ATTEND Nurse Practitioner Family
DX: M12.9 Arthropathy, unspecified (principal); Z79.899 Other long term (current) drug therapy; Z79.891 Long term (current) use of opiate analgesic; Z88.1 Allergy status to other antibiotic agents; Z88.5 Allergy status to narcotic agent; Z88.8 Allergy status to other drugs, medicaments and biological substances; Z88.0 Allergy status to penicillin

== ENCOUNTER → 2019-12-25 | Outpatient (CLI) | payer MEDICARE ==
--- NOTE | 2020-02-13 09:18 | REP ---
ULTRASOUND OF THE ABDOMINAL AORTA: FINDINGS: Real time ultrasound evaluation of the abdominal aorta is performed. The proximal abdominal aorta is normal in caliber, 1.9 x 1.9 cm, as is the aorta at the level of the renal arteries, 2.0 x 2.0 cm. The mid-abdominal aorta measures 2.9 x 2.6 cm. The distal abdominal aorta is slightly dilated at 3.2 x 3.8 cm, extending for a length of 4.4 cm. There is an aortic bi-iliac stent at this level. The internal lumen is patent. IMPRESSION: Mild aneurysmal dilatation of the distal abdominal aorta at 3.2 x 3.8 cm with aorto bi-iliac stent in place and central lumen patency. MTDD
== END ==
LOC: M RAD 09:30
PROVIDERS: ATTEND Internal Medicine
DX: I71.4 Abdominal aortic aneurysm, without rupture (principal); Z95.828 Presence of other vascular implants and grafts

== ENCOUNTER → 2020-02-11 | Outpatient (CLI) | payer MEDICARE | LOC: M PAIN 11:13 | PROVIDERS: ATTEND Nurse Practitioner Family | DX: M47.815 Spondylosis without myelopathy or radiculopathy, thoracolumbar region (principal); Z79.891 Long term (current) use of opiate analgesic ==

== ENCOUNTER → 2020-02-16 | Outpatient (REF) | payer MEDICARE ==
[2020-02-16 17:38] LABS: C REACTIVE PROTEIN QUANTITATIV 0.39 MG/DL (0.00-0.30)
[2020-02-17 14:52] LABS: ALBUMIN 4.38 GM/DL (3.29-5.55); ALBUMIN % 54.8 % (55.8-66.1); ALPHA-1-GLOBULIN % 4.2 % (2.9-4.9); ALPHA-1-GLOBULINS 0.34 GM/DL (0.17-0.41); ALPHA-2-GLOBULINS 0.85 GM/DL (0.42-0.99); ALPHA-2-GLOBULINS % 10.6 % (7.1-11.8); BETA-1-GLOBULINS 0.52 GM/DL (0.28-0.60); BETA-1-GLOBULINS % 6.5 % (4.7-7.2); BETA-2-GLOBULINS 0.35 GM/DL (0.19-0.55); BETA-2-GLOBULINS % 4.4 % (3.2-6.5); GAMMA GLOBULIN % 19.5 % (11.1-18.8); GAMMA GLOBULINS 1.56 GM/DL (0.65-1.58)
[2020-02-20 03:07] LABS: Alkaline Phosphatase Iso-Bone 20 % (14-68); Alkaline Phosphatase Iso-Intes 6 % (0-18); Alkaline Phosphatase Iso-Liver 74 % (18-85); CYCLIC CITRULLINATED PEPTIDE 4 units (0-19); TOTAL ALK PHOS 242 IU/L (39-117)
== END ==
LOC: M LAB REF 16:42
PROVIDERS: ATTEND Internal Medicine
DX: M06.4 Inflammatory polyarthropathy (principal); R70.0 Elevated erythrocyte sedimentation rate; R74.8 Abnormal levels of other serum enzymes

== ENCOUNTER → 2020-05-05 | Outpatient (CLI) | payer MEDICARE ==
--- NOTE | 2020-05-07 00:22 | ECWPNPC ---
PATIENT NAME: NADIRA MANSFIELD : 1935 GENDER: FEMALE VISIT DATE: 05/05/2020 DISCHARGE DATE: 05/05/20 1223 VISIT LOCKED DATE TIME: PHYSICIAN: MAYCO JACKSON RESOURCE: MAYCO JACKSON REASON FOR APPOINTMENT 1. MED MANAGEMENT HISTORY OF PRESENT ILLNESS GENERAL: HERE FOR FOLLOW-UP AND MEDICATION MANAGEMENT FOR CHRONIC GENERALIZED BACK PAIN. AT HER LAST VISIT WE INCREASED HYDROCODONE TO 10/325 MG TABLET. REPORTING SOME IMPROVEMENT IN PAIN. STATES SHE TRIES MULTIPLE DIFFERENT TOPICAL MEDICATIONS WITHOUT MUCH IMPROVEMENT. STATES HEAT HELPS WITH THE PAIN. REPORTING NO ADVERSE SIDE EFFECTS WITH MEDICATION. REPORTING NORMAL BOWEL MOVEMENTS. PAIN IS AGGRAVATED BY ACTIVITIES OF DAILY LIVING. -. FALL RISK SCREENING: SCREENING :ONE FALL WITHOUT INJURY IN THE PAST YEAR 02/2020 SLID OUT OF HER BED WHEN SHE WAS GETTING UP QUICKLY TO GO TO [facility]. RIGHT RIBS WERE SORE FOR A COUPLE OF DAYS PAIN SCREENING: PATIENT HAS A COMPLAINT OF ACUTE OR CHRONIC PAIN :YES LOCATION OF PAIN:UPPER BACK, KNEES RIGHT KNEE INTENSITY OF PAIN (SCALE OF 1 TO 10):10 STATES IT AVERAGES >10 WHAT DOES YOUR PAIN FEEL LIKE:ACHING, CONTINOUS, SHARP, STABBING, TENDER, THROBBING, SORE, SHOOTING DURATION:CONTINOUS, CONSTANT, AWAKENS FROM SLEEP PAIN IS INCREASED BY:ACTIVITIES PAIN IS DECREASED BY:USE OF PAIN MEDICATIONS HEATING PAD. USES THERAWORX AND SALONPAS CREAM BUT STATES THESE DON'T REALLY HELP SHE JUST USES THEM IN HOPES THAT THEY WILL NURSING NOTE: -. PAIN CENTER INTAKE QUESTIONS: DO YOU HAVE A HISTORY OF MRSA? :NO DO YOU TAKE A BLOOD THINNERS? :YES WARFARIN DO YOU HAVE ANY BLEEDING DISORDERS? :NO ANY NEW NUMBNESS OR WEAKNESS IN YOUR LEGS OR ARMS? :NO MUSCLE PAIN RIGHT LEG CONTINUES ANY PACEMAKER,DEFIBRILLATOR, OR DORSAL COLUMN STIMULATOR? :YES PACEMAKER DO YOU HAVE ANY RASHES OR OPEN SORES? :NO ARE YOU ALLERGIC TO IV DYE? :NO ARE YOU DIABETIC? :NO ANY NEW PROBLEMS WITH YOUR MEDICATIONS? :NO HAVE YOU RECEIVED A VACCINE IN THE PAST 30 DAYS? :NO DO YOU PLAN TO RECEIVE A VACCINE IN THE NEXT 21 DAYS? :NO DO YOU NEED ANY PRESCRIPTION? :NO DO YOU TAKE ANY IMMUNOSUPPRESSIVE MEDICATIONS? :NO IS THERE A CHANCE YOU COULD BE ? :NO ARE YOU BREAST FEEDING? :NO CURRENT MEDICATIONS TAKING WARFARIN SODIUM 5 MG TABLET TK DIRECTED ORAL 5 MGS MON, WED, FRI,SAT.; 7.5 MGS ON SUN. TUES TAKING CARVEDILOL 25 MG TABLET TK 1 T PO BID ORAL TAKING LEVOTHYROXINE SODIUM 150 MCG TABLET TK 1 T PO QD ORAL TAKING LOSARTAN POTASSIUM 50 MG TABLET TK 1 T PO QHS ORAL TAKING POLYETHYLENE GLYCOL 3350 - POWDER MIX 17 GRAMS OF POWDER IN WATER OR JUICE AND DRINK DAILY ORAL TAKING LASIX 40 MG TABLET 1 TABLET ORALLY ONCE A DAY TAKING DORZOLAMIDE HCL 2 % SOLUTION INT 1 GTT IN OU BID OPHTHALMIC TAKING NITROSTAT 0.4 MG TABLET SUBLINGUAL SUBLINGUAL TAKING LATANOPROST 0.005 % SOLUTION INT 1 GTT IN EACH EYE IN THE MORNING OPHTHALMIC DAILY TAKING HYDROCODONE-ACETAMINOPHEN 10-325 MG TABLET 1 TABLET NEEDED ORALLY EVERY 6 HRS PRN MDD4 TAKING SALONPAS LIDOCAINE PLUS 4-10 % CREAM DIRECTED TOPICALLY NEEDED TAKING THERAWORX RELIEF - FOAM DIRECTED EXTERNALLY NEEDED NOT-TAKING SENNA 8.6 MG TABLET TK 1 TO 2 TS PO QHS PRN ORAL NOT-TAKING GABAPENTIN 100 MG CAPSULE 1 CAPSULE ORALLY BID NOT-TAKING TURMERIC COMPLEX/BLACK PEPPER 500-3 MG CAPSULE ORALLY NOT-TAKING TYLENOL EXTRA STRENGTH 500 MG TABLET 1 TABLET NEEDED ORALLY EVERY 6 HRS NOT-TAKING FERROUS SULFATE 325 (65 FE) MG TABLET TK 1 T PO EVERY DAY ORAL NOT-TAKING CYMBALTA 20 MG CAPSULE DELAYED RELEASE PARTICLES 1 CAPSULE ORALLY DAILY, NOTES: NOT TAKING (BAD SIDE EFFECTS) NOT-TAKING BUTRANS 5 MCG/HR PATCH WEEKLY 1 PATCH TO SKIN TRANSDERMAL 1 PATCH Q 7 DAYS =MDD, NOTES: TOO EXPENSIVE MEDICATION LIST REVIEWED AND RECONCILED WITH THE PATIENT PAST MEDICAL HISTORY BACK PAIN ASTHMA ( PT DENIES) A FIB AORTIC VALVE DISORDER, CAD 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 OVERLOAD CHRONIC KIDNEY DISEASE HYPOTHYROIDISM OSTEOPOROSIS WITH HISTORY OF COMPRESSION FRACTURE SJOGRENS SYNDROME ANEMIA GLAUCOMA RAYNAUD'S ALLERGIES ESPERANZA INHIBITORS: COUGH DEMEROL: N/V CIPRO: THROAT TIGHTEN NITROFURANTOIN: RASH AMOXICILLIN: ITCH / SWELLING HANDS CYMBALTA: DRY THROAT, DECREASE IN URINARY FREQUENCY - SIDE EFFECTS GABAPENTIN: DIZZINESS - SIDE EFFECTS SURGICAL HISTORY AAA ENDOVASCULAR GRAFT 06/05/06 GLAUCOMA SHUNT 2010 & 2011 HEART VALVE 10/01 PACEMAKER 07/31 13 CAB X 3 2005 HERNIA X 3 8/6/18 FAMILY HISTORY FATHER: , DIAGNOSED WITH OTHER SPECIFIED CONDITIONS INFLUENCING HEALTH STATUS MOTHER: , UNSPECIFIED HEART DISEASE SOCIAL HISTORY GENERAL: TOBACCO USE ARE YOU A:NONSMOKER LATEX QUESTIONNAIRE LATEX ALLERGY : HAVE YOU EVER DEVELOPED ANY TYPE OF REACTION AFTER HANDLING LATEX PRODUCTS SUCH RUBBER GLOVES, CONDOMS, DIAPHRAGMS, BALLOONS, SOCKS, OR UNDERWEAR?NO LATEX ALLERGY : HAVE YOU EVER DEVELOPED ANY TYPE OF REACTION DURING OR AFTER DENTAL APPOINTMENT, VAGINAL/RECTAL EXAMINATION, SURGICAL PROCEDURE, OR ANY OTHER EXPOSURE?NO LATEX RISK : HAVE YOU EVER HAD ANY DIFFICULTY BREATHING OR HIVES AFTER EATING OR HANDLING ANY FRUITS, OR VEGETABLES; SUCH KIWI, BANANAS, STONE FRUITS, OR CHESTNUTSNO LATEX RISK : DO YOU HAVE A PREVIOUS PERSONAL HISTORY OF MORE THAN NINE SURGERIES, SPINA BIFIDA, OR REPEATED CATHERIZATIONS? YES - PLEASE INDICATE : > 9 SURGERIES LATEX RISK : ARE YOU FREQUENTLY EXPOSED TO LATEX PRODUCTS IN YOUR OCCUPATION?NO DATE ASKED : 05/05/2020 ALCOHOL SCREENING DID YOU HAVE A DRINK CONTAINING ALCOHOL IN THE PAST YEAR?NO POINTS0 INTERPRETATIONNEGATIVE RECREATIONAL DRUG USE DRUG USE?NO CAFFEINE CAFFEINE USE?YES HOW OFTEN AND HOW MUCH? COFFEE -2CUPS PER DAY UATSDIN [id number] TENRIISM LANGUAGE LANGUAGES SPOKEN:DIVEHI EDUCATION LEVEL OF EDUCATION:NOT FINISHED COLLEGE LEARNING BARRIERS / SPECIAL NEEDS BARRIERS TO LEARNING?NO HEARING IMPAIRED?YES BISHOP PAIUTE LEFT EAR. DOESN'T WANT TO PAY FOR HEARING AID AT HER AGE VISION IMPAIRED?YES :CORRECTIVE LENSES COGNITIVELY IMPAIRED?NO READINESS TO LEARN?YES LEARNING PREFERENCES?NO LEARNING CAPABILITIES PRESENT?YES EMOTIONAL BARRIERS?NO SPECIAL DEVICES?YES :CANE, WALKER WHEN NEEDED MANAGER QUALITY COMPLIANCE NEEDED?NO DOMESTIC VIOLENCE DO YOU FEEL SAFE IN YOUR ENVIRONMENT?YES TODAY'S VISIT NOTES 09/15/2019, PATIENT DESCRIBES PAIN : ACHING, SORE, OTHER DULL ACHING, FROM 0-10, WHAT LEVEL IS YOUR PAIN TODAY? 10. PAIN CLINIC PFS, CLERGY, PUBLIC HEALTH REFERRALS PFS REFERRAL NEEDED?NO CLERGY REFERRAL NEEDED?NO PUBLIC HEALTH REFERRAL NEEDED?NO HAS THE PATIENT BEEN EDUCATED REGARDING HIS/HER PLAN OF CARE?YES HAS THE PATIENT BEEN EDUCATED REGARDING PAIN, THE RISK FOR PAIN, THE IMPORTANCE OF EFFECTIVE PAIN MANAGEMENT, AND THE PAIN ASSESSMENT PROCESS?YES ADVANCE DIRECTIVE ADVANCE DIRECTIVE DISCUSSED WITH PATIENT:YES HCP IS ISHA MANSFIELD HOSPITALIZATION/MAJOR DIAGNOSTIC PROCEDURE SEE ABOVE SURGERY CHILD REVIEW OF SYSTEMS CONSTITUTIONAL: ANY RECENT FEVER NO . CHILLS NO . WEIGHT CHANGE OF UNKNOWN REASONS NO . GASTROENTEROLOGY: NEW UNEXPLAINABLE CHANGES IN BOWEL CONTROL NO . CONSTIPATION NO . GENITOURINARY: ANY NEW CHANGE IN BLADDER CONTROL? NO . NEUROLOGY: NEW ONSET DIZZINESS OR NEUROLOGICAL CHANGES NOT MENTIONED NO . NEW NUMBNESS OR PAIN PATTERNS NOT MENTIONED AND PERTINENT TO TODAY'S VISIT NO . CARDIOLOGY: NEW CHEST PRESSURE NO . NEW CHEST PAIN NO . RESPIRATORY: UNEXPLAINABLE COUGH NO . NEW SHORTNESS OF BREATH NO . VITAL SIGNS WT 126.6 LBS, HT 58 IN, BMI 26.46 INDEX, BP 128/58 MM HG, HR 108 /MIN, RR 18 /MIN, TEMP 96.1 F, OXYGEN SAT % 97%, SAFE IN ENV? (Y/N) Y, NA INITIALS AW 1134, REVIEWED BY: Glen BUCK RN. EXAMINATION GENERAL EXAMINATION: GENERALNO ACUTE DISTRESS, WELL NOURISHED AND HYDRATED. PSYCHAPPROPRIATE MOOD AND AFFECT . NECK:NO LYMPHADENOPATHY, SUPPLE, NO THYROMEGALLY, NO JVD OR BRUITS. LUNGS:CLEAR TO AUSCULTATION BILATERALLY, NO WHEEZES, RHONCHI, RALES. HEART:NO MURMURS, REGULAR RATE AND RHYTHM. 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 IT IS NOT A COPY OF THE [employer] PROGRESS NOTE. MTDD
== END ==
LOC: M PAIN 11:15
PROVIDERS: ATTEND Nurse Practitioner Family
DX: M12.9 Arthropathy, unspecified (principal); G89.29 Other chronic pain; J45.909 Unspecified asthma, uncomplicated; E03.9 Hypothyroidism, unspecified; Z95.0 Presence of cardiac pacemaker; Z88.1 Allergy status to other antibiotic agents; Z88.5 Allergy status to narcotic agent; Z88.8 Allergy status to other drugs, medicaments and biological substances; Z79.01 Long term (current) use of anticoagulants; Z79.899 Other long term (current) drug therapy

== ENCOUNTER → 2020-05-26 | Outpatient (REF) | payer MEDICARE ==
[2020-05-26 13:12] LABS: PROTHROMBIN TIME 63.7 SECONDS (12.5-14.3)
[2020-05-26 13:22] LABS: INR 7.24
[2020-05-27 13:32] LABS: PERCENT SATURATION 8.6 % (13.2-45.0)
== END ==
LOC: M LAB REF 12:29
PROVIDERS: ATTEND Internal Medicine
DX: Z79.01 Long term (current) use of anticoagulants (principal); D50.9 Iron deficiency anemia, unspecified

== ENCOUNTER → 2020-06-14 | Outpatient (REF) | payer MEDICARE | LOC: M LAB REF 12:29 | PROVIDERS: ATTEND Internal Medicine | DX: Z79.899 Other long term (current) drug therapy (principal) ==

== ENCOUNTER 2020-07-30 14:41 | Inpatient (IN) | payer MEDICARE ==
[~2020-07-30] VITALS: Ht 147.3 cm; Wt 52.4 kg
[~2020-07-30 14:41] MED LIST changes: -DORZ2SOL4 OU; -LIDO1PAD TOP; -LOSA25TA14 PO; -OMEP-218 PO; -XALA0.007 OU
[2020-07-30] MEDS ORDERED: NORCO, ANEXSIA 5/325MG TABLET (HYDROcodone/ACETAMINOPHEN) PO ONE (15:50)
--- NOTE | 2020-07-30 16:14 | REP ---
INDICATION: DYSPNEA/COUGH. COMPARISON: 12/11/2017 as well as other prior exams. TECHNIQUE: SINGLE PORTABLE AP VIEW OF THE CHEST WAS PERFORMED. FINDINGS: There is moderate cardiomegaly. There is mild vascular congestion and possibly a mild degree of interstitial edema. No consolidative infiltrate is seen. There is calcification of the thoracic aorta. The mediastinal silhouette is unchanged. Multiple sternal wires are present. There is a left dual lead pacemaker. IMPRESSION: Moderate cardiomegaly. Mild vascular congestion and possible mild degree of interstitial edema. <Electronically signed by Mario Chavis > 07/30/20 [id number]
[2020-07-30] MEDS ORDERED: LOSA25TA14 PO (16:48)
[2020-07-30] MEDS ORDERED: OMEP-218 PO (16:48)
[2020-07-30] MEDS ORDERED: XALA0.007 OU (16:48)
[2020-07-30 17:31] LABS: BASO % 0.4 % (0.0-1.0); EOS # 0.1 10^3/uL (0.0-0.5); EOS % 1.3 % (0.0-3.0); LYMPH # 1.4 10^3/uL (1.5-5.0); MEAN CORPUSCULAR HGB CONC 31.1 g/dl (32.0-36.5); MEAN CORPUSCULAR VOLUME 93.3 fl (80.0-96.0); MONO # 0.5 10^3/uL (0.0-0.8); MONO % 10.3 % (2.0-8.0); NEUTROPHILS # 3.2 10^3/uL (1.5-8.5); NEUTROPHILS % 61.2 % (36.0-66.0); PLATELET COUNT, AUTOMATED 253 10^3/uL (150-450); RED BLOOD COUNT 2.24 10^6/uL (4.00-5.40); WHITE BLOOD COUNT 5.2 10^3/uL (4.0-10.0)
[2020-07-30 17:40] LABS: HEMATOCRIT 20.9 % (36.0-47.0); HEMOGLOBIN 6.5 g/dl (12.0-15.5)
[2020-07-30] MEDS: SUCRALFATE 1 GM TAB PO SCH ×2 (18:00→23:39)
[2020-07-30 18:01] LABS: ALBUMIN 3.4 GM/DL (3.2-5.2); ALT/SGPT 49 U/L (12-78); BILIRUBIN,DIRECT 0.2 MG/DL (0.0-0.2); BILIRUBIN,TOTAL 0.4 MG/DL (0.2-1.0); BLOOD UREA NITROGEN 63 MG/DL (7-18); CALCIUM LEVEL 8.6 MG/DL (8.8-10.2); CARBON DIOXIDE LEVEL 23 MEQ/L (21-32); CHLORIDE LEVEL 106 MEQ/L (98-107); CK-MB VALUE MASS 4.7 NG/ML (<3.6); CPK CREATINE PHOSPHOKINASE 157 U/L (26-192); CREATININE FOR GFR 1.39 MG/DL (0.55-1.30); GLOMERULAR FILTRATION RATE 38.5 (>32); GLUCOSE, FASTING 95 MG/DL (70-100); MB/CK RELATIVE INDEX 2.99 (< OR =4); NT-PRO BNP 3341 PG/ML (<450); POTASSIUM SERUM 4.1 MEQ/L (3.5-5.1); SODIUM LEVEL 135 MEQ/L (136-145); THYROXINE (T4) 13.5 UG/DL (4.5-12.0); TOTAL PROTEIN 6.8 GM/DL (6.4-8.2); TROPONIN I < 0.02 NG/ML (< 0.10)
--- NOTE | 2020-07-30 18:24 | HPEPDOC ---
[facility] Medical History & Physical Date of Admission Jul 30, 2020 Date of Service: Jul 30, 2020 Attending Physician: MAYI ANDERSON MD History and Physical HISTORY OF PRESENT ILLNESS: 85 y/o with significant PMHx including afib on warfarin, back pain (following with pain mgmt), anemia, raynaud's and sjogrens, presents to [facility] for blood transfusions. While getting her transfusion, it was reported that she was hypoxic; however, she has raynauds and cold extremities which may be giving a false pulse ox reading. She states that she's been taking some advil on top of her pain meds; however, it's unknown just how much NSAIDs she's been taking on top of her pain meds (She states she's taking about 2 per day). She was sent down to the ER, however, satting above 90% on RA without any acute distress or sob. Pt gets frequent blood transfusions due to chronic anemia (unknown source) which she takes iron. In the ER, Pt had a positive stool occult for blood and 2 prbc were ordered to be transfused. Pt denies CP, sob, n/v/d. She does have slight abdominal discomfort PAST MEDICAL HISTORY: BACK PAIN ASTHMA AFIB on warfarin AORTIC VALVE DISORDER, CAD 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 OVERLOAD CHRONIC KIDNEY DISEASE HYPOTHYROIDISM OSTEOPOROSIS WITH HISTORY OF COMPRESSION FRACTURE SJOGRENS SYNDROME ANEMIA GLAUCOMA RAYNAUD'S PAST SURGICAL HISTORY: AAA ENDOVASCULAR GRAFT 06/05/06 GLAUCOMA SHUNT 2010 & 2011 HEART VALVE 10/01 PACEMAKER 07/31 13 CAB X 3 2004 HERNIA X 3 12/24/17 Allergies: see below SOCIAL HISTORY: Never smoker, no reports of illicit drug use FAMILY HISTORY: reviewed and non contributory ALLERGIES: Please see below. HOME MEDICATIONS: Please see below. Review of systems: - 10 point review of systems complete, all negative otherwise stated in HPI PHYSICAL EXAMINATION: VITAL SIGNS: Please see below. GENERAL: NAD, sitting comfortably in bed, satting about 90% without using of accessory muscles HEENT: NC/AT. EOMI CARDIOVASCULAR EXAMINATION: +S1S2, irregularly irregular, rate controlled, mild displacement of PMI, no JVD appreciated RESPIRATORY EXAMINATION: CTA B/L ABDOMINAL EXAMINATION: Soft, NT, +BS EXTREMITIES: trace non-pitting edema SKIN: No bruising or active bleeding. She did NEUROLOGICAL EXAMINATION: No gross focal deficits. strength intact PSYCHIATRIC EXAMINATION: Alert, awake, oriented to person, place. LABORATORY DATA: See below. IMAGING: XR chest (07/30/20): moderate cardiomegaly. Mild vascular congestion and possible mild degree of interstitial edema MICROBIOLOGY: Please see below. Assessment and Plan #Anemia likely 2/2 to GI bleed - Ordered for anemia workup - Transfuse 2 prbc; lasix 20mg iv x1 dose in between units - warfarin- hold while pending INR - Stool occult + : GI consult (Dr. Tripathi) for possible GI bleed: Appreciate more recommendations #Chronic Afib on warfarin - INR ordered pending - irregulary irregular; rate controlled - holding warfarin pending INR #MATT - Cr is hanging around her baseline # Hx of CHF - frequent asymptomatic PVCs and afib - not decompensated - Will order ECHO - holding scheduled home lasix #Hx of Raynauds and Sjogrens DVT ppx: scds GI ppx: protonix and carafate Diet: 2g Na fluid: none CODE STATUS: FULL Disposition: transfuse 2 pRBCs. PCU with telemetry. Spoke with patient's son about patient's disposition. Vital Signs Vital Signs Date Time Temp Pulse Resp B/P (MAP) Pulse Ox O2 Delivery O2 Flow Rate FiO2 07/30/20 17:22 18 97 07/30/20 15:55 Room Air 07/30/20 15:10 98.0 92 136/73 (94) Laboratory Data Labs 24H Laboratory Tests 2 07/30/20 16:21: POC pH (Misc Panel) 7.367, POC Base Excess (Misc Panel) -8.0L, POC Saturated Percent O2 (Misc) 96, POC pO2 (Misc Panel) 81.0, POC pCO2 (Misc Panel) 30.5L, POC HCO3 (Misc Panel) 17.5L, POC Total CO2 (Misc Panel) 18.0L 07/30/20 16:46: Immature Granulocyte % (Auto) 0.8, Neutrophils (%) (Auto) 61.2, Lymphocytes (%) (Auto) 26.0, Monocytes (%) (Auto) 10.3H, Eosinophils (%) (Auto) 1.3, Basophils (%) (Auto) 0.4, Neutrophils # (Auto) 3.2, Lymphocytes # (Auto) 1.4L, Monocytes # (Auto) 0.5, Eosinophils # (Auto) 0.1, Basophils # (Auto) 0.0, Nucleated Red Blood Cells % (auto) 0.0, Anion Gap 6L, Glomerular Filtration Rate 38.5, Lactic Acid Level 1.2, Calcium Level 8.6L, Total Bilirubin 0.4, Direct Bilirubin 0.2, Aspartate Amino Transf (AST/SGOT) 68H, Alanine Aminotransferase (ALT/SGPT) 49, Alkaline Phosphatase 276H, Total Creatine Kinase 157, Creatine Kinase MB 4.7H, Creatine Kinase MB Relative Index 2.99, Troponin I < 0.02, VH-Xqj-T-Type Natriuretic Peptide 3341H, Total Protein 6.8, Albumin 3.4, Albumin/Globulin Ratio 1.0L, Thyroid Stimulating Hormone (TSH) 3.860H, Thyroxine (T4) 13.5H CBC/BMP Laboratory Tests 07/30/20 16:46 Microbiology Microbiology 07/30/20 Respiratory Virus Panel (PCR) ([facility]), Received Pending Home Medications Scheduled Carvedilol (Carvedilol) 25 Mg Tab, 25 MG PO BID Dorzolamide HCl (Dorzolamide HCl) 2% 10ML Drops, 1 DROP OU BID Ferrous Sulfate (Ferrous Sulfate) 325 Mg Tab, 325 MG PO Q2D Furosemide (Furosemide) 20 Mg Tablet, 20 MG PO DAILY Latanoprost (Xalatan) 0.005% 2.5ML Drops, 1 DROP OU QHS Levothyroxine Sodium (Levothyroxine Sodium) 150 Mcg Tab, 150 MCG PO DAILY Lidocaine (Lidocaine) 5% Adh..patch, 1 PATCH TOP DAILY Pantoprazole Sodium (Pantoprazole Sodium) 40 Mg Tablet.dr, 40 MG PO DAILY Sucralfate (Sucralfate) 1 Gm Tablet, 1 GM PO TID Warfarin Sodium (Warfarin Sodium) 5 Mg Tab, 5 MG PO QPM 1700 Scheduled PRN Acetaminophen (Acetaminophen) 325 Mg Tablet, 650 MG PO Q6HP PRN for PAIN / FEVER Hydrocodone/Acetaminophen (Hydrocodone-Acetamin 5-325 mg) 1 Tab Tab, 1 TAB PO TID PRN for PAIN Nitroglycerin (Nitroglycerin) 0.4 Mg Sub, 0.4 MG SL NITRO PRN for CHEST PAIN Allergies Coded Allergies: ESPERANZA Inhibitors (Verified Adverse Reaction, Mild, COUGH, 07/30/20) ciprofloxacin (Verified Adverse Reaction, Mild, DIZZINESS, 07/30/20) meperidine (Verified Adverse Reaction, Mild, N/V, 07/30/20) A-FIB/CHADSVASC A-FIB History Current/History of A-Fib/PAF?: Yes Current PO Anticoag Therapy: Yes GME ATTESTATION GME ATTESTATION My faculty preceptor for this patient encounter was physically present during the encounter and was fully available. All aspects of the patient interview, examination, medical decision making process, and medical care plan development were reviewed and approved by the faculty preceptor. The faculty preceptor is aware and concurs with the plan as stated in the body of this note and will attest to such by his/her cosignature. ATTENDING NOTE I, Mayi Anderson, have independently examined this patient and performed my own physical exam, as well as reviewed the documentation and edited where necessary. I have discussed in detail with the resident / student the findings and plan of treatment as documented by the resident / student and edited their note. I agree with their findings and treatment plan and have edited their documentation. I will continue to follow the patient during this hospital stay. Shaji Ariza DO Jul 30, 2020 18:24 MAYI ANDERSON MD Aug 11, 2020 13:59
[2020-07-30] MEDS ORDERED: FUROSEMIDE 20 MG TAB PO ONE (18:25)
[2020-07-30] MEDS ORDERED: DORZ2SOL4 OU (18:43)
[2020-07-30] MEDS ORDERED: LIDO1PAD TOP (18:43)
[2020-07-30] MEDS ORDERED: FURO20TA2 PO (18:44)
--- NOTE | 2020-07-30 18:53 | ECGEPIP ---
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
[2020-07-30] MEDS ORDERED: FUROSEMIDE 20MG/2ML VIAL (J1940) IV ONE (18:55)
[2020-07-30 19:01] LABS: IRON (FE) 29 UG/DL (50-170); PERCENT SATURATION 7.2 % (13.2-45.0); TOTAL IRON BINDING CAPACITY 404 UG/DL (250-450)
--- NOTE | 2020-07-30 19:06 | IPNPDOC ---
Text Note Date of Service The patient was seen on 07/30/20. NOTE Patient is an 85 old female with a past medical history of congestive heart failure, atrial fibrillation (on Coumadin), hypertension, Raynaud's disease and Sjogren's disease. - Patient presented to [address] [place] [address] initially for an infusion of 2 units by her primary care provider - Was sent him to the emergency room for hypoxia - In the emergency room, patient was found not to be hypoxic and the falls reading was attributed to her Raynaud's phenomenon - Hemoglobin was checked again and again was confirmed to be 6.5 - Patient had complained of dark stools for 2 weeks. Had also reported the use of Advil for 2 weeks - Hospital services called for admission - I have come to see and evaluate the patient at the bedside - Patient is currently hemodynamically stable and afebrile - Will check anemia workup including iron panel, B12, folate and reticulocyte count - Will transfuse 2 units of PRBC; will provide dose of Lasix in between 2 units of PRBC - Will check INR stat as this has not been checked by ER providers; this will be followed up by night providers - Patient will be placed in PCU and Telemetry monitoring - We have started Protonix and Carafate - I have called and consulted gastroenterology for possible EGD - I have called the son, Viral and provided him with an update about the care plan - Full H&P to follow VS,Chanel, I+O VS, Neerajbone, I+O Laboratory Tests 07/30/20 16:46 Vital Signs Date Time Temp Pulse Resp B/P (MAP) Pulse Ox O2 Delivery O2 Flow Rate FiO2 07/30/20 17:22 18 97 07/30/20 15:55 Room Air 07/30/20 15:10 98.0 92 136/73 (94) RAHUL ANDERSON MD Jul 30, 2020 19:06
[2020-07-30] MEDS ORDERED: NORCO, ANEXSIA 5/325MG TABLET (HYDROcodone/ACETAMINOPHEN) PO PRN (19:10)
[2020-07-30 19:16] LABS: FOLATE 5.3 NG/ML; VITAMIN B12 LEVEL 787 PG/ML
[2020-07-30 20:10] VITALS: BP 131/61
[2020-07-30 20:25] VITALS: BP 143/63
[2020-07-30] MEDS: LATANOPROST 0.005% OPHTH SOLN 2.5 ML OU SCH (21:00)
[2020-07-30] MEDS: DORZOLAMIDE 2% OPHTH SOLN 10 ML BTL OU SCH (21:00)
[2020-07-30 21:10] VITALS: BP 133/65
[2020-07-30 22:10] VITALS: BP 127/63
[2020-07-30 22:40] VITALS: BP 166/74
[2020-07-30] MEDS: PANTOPRAZOLE 40MG VIAL (C9113 PER 1) IV SCH (22:58)
[2020-07-30 23:40] VITALS: BP 135/63
[2020-07-30] MEDS: ACETAMINOPHEN TAB 650MG DOSE (2X325MG) PO PRN (23:40)
[2020-07-30] MEDS: CARVedilol 12.5 MG TAB PO SCH (23:41)
[2020-07-30 23:58] LABS: INR 2.38; PROTHROMBIN TIME 26.5 SECONDS (12.5-14.3)
[2020-07-31] VITALS (9 sets, daily range): BP systolic 110–137; BP diastolic 44–85
[2020-07-31 05:49] LABS: BASO % 0.4 % (0.0-1.0); EOS # 0.1 10^3/uL (0.0-0.5); EOS % 1.2 % (0.0-3.0); HEMATOCRIT 28.6 % (36.0-47.0); LYMPH # 1.3 10^3/uL (1.5-5.0); LYMPH % 22.1 % (24.0-44.0); MEAN CORPUSCULAR HEMOGLOBIN 28.8 pg (27.0-33.0); MEAN CORPUSCULAR HGB CONC 31.5 g/dl (32.0-36.5); MEAN CORPUSCULAR VOLUME 91.4 fl (80.0-96.0); MONO # 0.7 10^3/uL (0.0-0.8); NEUTROPHILS # 3.6 10^3/uL (1.5-8.5); NEUTROPHILS % 63.4 % (36.0-66.0); PLATELET COUNT, AUTOMATED 229 10^3/uL (150-450); RED BLOOD COUNT 3.13 10^6/uL (4.00-5.40); WHITE BLOOD COUNT 5.7 10^3/uL (4.0-10.0)
[2020-07-31 05:50] LABS: INR 1.89; PROTHROMBIN TIME 22.1 SECONDS (12.5-14.3)
[2020-07-31] MEDS: ACETAMINOPHEN TAB 650MG DOSE (2X325MG) PO PRN (06:03)
[2020-07-31] MEDS: SUCRALFATE 1 GM TAB PO SCH ×3 (06:03→18:11)
[2020-07-31] MEDS: LEVOTHYROXINE 150MCG TABLET (0.15MG) PO SCH (06:03)
[2020-07-31 06:17] LABS: ALBUMIN 3.3 GM/DL (3.2-5.2); BILIRUBIN,TOTAL 0.7 MG/DL (0.2-1.0); CALCIUM LEVEL 8.6 MG/DL (8.8-10.2); CREATININE FOR GFR 1.16 MG/DL (0.55-1.30); GLOMERULAR FILTRATION RATE 47.5 (>32); POTASSIUM SERUM 3.4 MEQ/L (3.5-5.1); TOTAL PROTEIN 6.7 GM/DL (6.4-8.2)
--- NOTE | 2020-07-31 08:06 | IPNPDOC ---
Subjective Date Seen The patient was seen on 07/31/20. Subjective Chief Complaint/HPI Subjective: Pt was seen at bedside this am. She's complaining of backpain and a lidocaine patch was given this am as well as her home pain med. She received 2 units prbc overnight and H/H is stable. INR is 1.8 this morning. Will order another H/H today. She denies CP, abd pain, fever, n/v/d. Objective: PHYSICAL EXAMINATION: VITAL SIGNS: Please see below. GENERAL: NAD, sitting comfortably in bed, satting about 90% without using of accessory muscles HEENT: NC/AT. EOMI CARDIOVASCULAR EXAMINATION: +S1S2, irregularly irregular, rate controlled, mild displacement of PMI, no JVD appreciated RESPIRATORY EXAMINATION: CTA B/L ABDOMINAL EXAMINATION: Soft, NT, +BS EXTREMITIES: trace non-pitting edema SKIN: No bruising or active bleeding. She did NEUROLOGICAL EXAMINATION: No gross focal deficits. strength intact PSYCHIATRIC EXAMINATION: Alert, awake, oriented to person, place. LABORATORY DATA: See below. MICROBIOLOGY: Please see below. Assessment and Plan 5 y/o with significant PMHx including afib on warfarin, back pain (following with pain mgmt), anemia, raynaud's and sjogrens, presents to [facility] for blood transfusions. While getting her transfusion, it was reported that she was hypoxic; however, she has raynauds and cold extremities which may be giving a false pulse ox reading. She states that she's been taking some advil on top of her pain meds; however, it's unknown just how much NSAIDs she's been taking on top of her pain meds (She states she's taking about 2 per day). She was sent down to the ER, however, satting above 90% on RA without any acute distress or sob. Pt gets frequent blood transfusions due to chronic anemia (unknown source) which she takes iron. In the ER, Pt had a positive stool occult for blood and 2 prbc were ordered to be transfused. Pt denies CP, sob, n/v/d. She does have slight abdominal discomfort. She'll be admitted under hospitalist service for anemia likely 2/2 to GI bleed workup and treatment. #Anemia likely 2/2 to GI bleed - Ordered for anemia workup - Transfuse 2 prbc; lasix 20mg iv x1 dose in between units - warfarin- hold - HH trend q6h - Stool occult + : GI consult (Dr. Tripathi) for possible GI bleed: Appreciate more recommendations - c/w Carafate / Protonix #Chronic Afib on warfarin - INR 1.8 - irregulary irregular; rate controlled - Coumadin on hold #MATT - resolved # Hx of CHF - frequent asymptomatic PVCs and afib - not decompensated - Will order ECHO - Pending results - holding scheduled home lasix; s/p Lasix x 1 dose between blood products yesterday #Hx of Raynauds and Sjogrens DVT ppx: scds GI ppx: protonix and carafate Diet: 2g Na fluid: none CODE STATUS: FULL Disposition: PCU with tele. GI on board - possible endoscopy Sunday per Dr. Oleg rod. Pending H/H Assessment /Plan Plan/VTE VTE Prophylaxis Ordered?: Yes VS, I&O, 24H, Fishbone Vital Signs/I&O Vital Signs Date Time Temp Pulse Resp B/P (MAP) Pulse Ox O2 Delivery O2 Flow Rate FiO2 07/31/20 08:00 97.9 79 19 99 Room Air 07/31/20 04:00 2.0 07/31/20 03:41 133/62 I&O- Last 24 Hours up to 6 AM 07/31/20 06:00 Intake Total 754 ml Output Total 400 ml Balance 354 ml Laboratory Data 24H LABS Laboratory Tests 2 07/30/20 16:21: POC pH (Misc Panel) 7.367, POC Base Excess (Misc Panel) -8.0L, POC Saturated Percent O2 (Misc) 96, POC pO2 (Misc Panel) 81.0, POC pCO2 (Misc Panel) 30.5L, POC HCO3 (Misc Panel) 17.5L, POC Total CO2 (Misc Panel) 18.0L 07/30/20 16:46: Immature Granulocyte % (Auto) 0.8, Neutrophils (%) (Auto) 61.2, Lymphocytes (%) (Auto) 26.0, Monocytes (%) (Auto) 10.3H, Eosinophils (%) (Auto) 1.3, Basophils (%) (Auto) 0.4, Neutrophils # (Auto) 3.2, Lymphocytes # (Auto) 1.4L, Monocytes # (Auto) 0.5, Eosinophils # (Auto) 0.1, Basophils # (Auto) 0.0, Reticulocyte # (auto) 77.4H, Nucleated Red Blood Cells % (auto) 0.0, Percent Reticulocyte Count 3.4H, Reticulocyte Hemoglobin Equivalent 25.9, Anion Gap 6L, Glomerular Filtration Rate 38.5, Lactic Acid Level 1.2, Calcium Level 8.6L, Iron Level 29L, Total Iron Binding Capacity 404, Transferrin % Saturation 7.2L, Total Bilirubin 0.4, Direct Bilirubin 0.2, Aspartate Amino Transf (AST/SGOT) 68H, Alanine Aminotransferase (ALT/SGPT) 49, Alkaline Phosphatase 276H, Total Creatine Kinase 157, Creatine Kinase MB 4.7H, Creatine Kinase MB Relative Index 2.99, Troponin I < 0.02, MT-Hwa-Z-Type Natriuretic Peptide 3341H, Total Protein 6.8, Albumin 3.4, Albumin/Globulin Ratio 1.0L, Vitamin B12 Level 787, Folate 5.3, Thyroid Stimulating Hormone (TSH) 3.860H, Thyroxine (T4) 13.5H 07/30/20 23:36: Prothrombin Time 26.5H, Prothromb Time International Ratio 2.38 07/31/20 05:12: Immature Granulocyte % (Auto) 0.9, Neutrophils (%) (Auto) 63.4, Lymphocytes (%) (Auto) 22.1L, Monocytes (%) (Auto) 12.0H, Eosinophils (%) (Auto) 1.2, Basophils (%) (Auto) 0.4, Neutrophils # (Auto) 3.6, Lymphocytes # (Auto) 1.3L, Monocytes # (Auto) 0.7, Eosinophils # (Auto) 0.1, Basophils # (Auto) 0.0, Nucleated Red Blood Cells % (auto) 0.0, Anion Gap 8, Glomerular Filtration Rate 47.5, Calcium Level 8.6L, Total Bilirubin 0.7#, Aspartate Amino Transf (AST/SGOT) 62H, Alanine Aminotransferase (ALT/SGPT) 46, Alkaline Phosphatase 233H, Total Protein 6.7, Albumin 3.3, Albumin/Globulin Ratio 1.0L, Prothrombin Time 22.1H, Prothromb Time International Ratio 1.89 CBC/BMP Laboratory Tests 07/30/20 16:46 07/31/20 05:12 Microbiology Microbiology 07/30/20 Respiratory Virus Panel (PCR) ([facility]) - Final, Complete GME ATTESTATION GME ATTESTATION My faculty preceptor for this patient encounter was physically present during the encounter and was fully available. All aspects of the patient interview, examination, medical decision making process, and medical care plan development were reviewed and approved by the faculty preceptor. The faculty preceptor is aware and concurs with the plan as stated in the body of this note and will attest to such by his/her cosignature. ATTENDING NOTE I, Mayi Matson, have independently examined this patient and performed my own physical exam, as well as reviewed the documentation and edited where necessary. I have discussed in detail with the resident / student the findings and plan of treatment as documented by the resident / student and edited their note. I agree with their findings and treatment plan and have edited their documentation. I will continue to follow the patient during this hospital stay. Shaji Ariza DO Jul 31, 2020 08:06 MAYI MATSON MD Jul 31, 2020 14:14
[2020-07-31] MEDS: LIDOCAINE 5% (LIDODERM) PATCH TOP SCH (08:32)
[2020-07-31] MEDS: NORCO, ANEXSIA 5/325MG TABLET (HYDROcodone/ACETAMINOPHEN) PO PRN ×3 (08:36→21:24)
[2020-07-31] MEDS: CARVedilol 12.5 MG TAB PO SCH ×2 (08:36→21:25)
[2020-07-31] MEDS: DORZOLAMIDE 2% OPHTH SOLN 10 ML BTL OU SCH ×2 (08:37→21:25)
[2020-07-31] MEDS: PANTOPRAZOLE 40MG VIAL (C9113 PER 1) IV SCH ×2 (08:37→21:25)
[2020-07-31] MEDS ORDERED: POTASSIUM CHLORIDE 10 MEQ SR TABLET PO ONE (09:00)
[2020-07-31 10:24] LABS: HEMATOCRIT 27.2 % (36.0-47.0); HEMOGLOBIN 8.7 g/dl (12.0-15.5)
[2020-07-31 12:12] LABS: HEMATOCRIT 27.5 % (36.0-47.0); HEMOGLOBIN 8.9 g/dl (12.0-15.5)
[2020-07-31] MEDS ORDERED: DOCUSATE SODIUM 100MG CAPSULE PO PRN (14:05)
[2020-07-31] MEDS ORDERED: MIRALAX *UNIT DOSE* 17GM PACKET PO PRN (14:05)
[2020-07-31] MEDS: LATANOPROST 0.005% OPHTH SOLN 2.5 ML OU SCH (21:25)
[2020-08-01] VITALS: BP 121/60
[2020-08-01] MEDS: SUCRALFATE 1 GM TAB PO SCH ×5 (00:31→23:23)
[2020-08-01 00:32] LABS: HEMATOCRIT 26.5 % (36.0-47.0); HEMOGLOBIN 8.5 g/dl (12.0-15.5)
[2020-08-01 04:00] VITALS: BP 132/68
[2020-08-01] MEDS: NORCO, ANEXSIA 5/325MG TABLET (HYDROcodone/ACETAMINOPHEN) PO PRN ×5 (04:09→22:08)
[2020-08-01 05:17] LABS: HEMATOCRIT 27.2 % (36.0-47.0); HEMOGLOBIN 8.7 g/dl (12.0-15.5); MEAN CORPUSCULAR HEMOGLOBIN 28.8 pg (27.0-33.0); MEAN CORPUSCULAR VOLUME 90.1 fl (80.0-96.0); PLATELET COUNT, AUTOMATED 243 10^3/uL (150-450); RED BLOOD COUNT 3.02 10^6/uL (4.00-5.40); WHITE BLOOD COUNT 4.5 10^3/uL (4.0-10.0)
[2020-08-01 05:27] LABS: INR 1.31; PROTHROMBIN TIME 16.6 SECONDS (12.5-14.3)
[2020-08-01 05:41] LABS: ALBUMIN 3.1 GM/DL (3.2-5.2); ALT/SGPT 44 U/L (12-78); BILIRUBIN,TOTAL 0.6 MG/DL (0.2-1.0); BLOOD UREA NITROGEN 40 MG/DL (7-18); CALCIUM LEVEL 8.4 MG/DL (8.8-10.2); CARBON DIOXIDE LEVEL 24 MEQ/L (21-32); CHLORIDE LEVEL 112 MEQ/L (98-107); CREATININE FOR GFR 0.88 MG/DL (0.55-1.30); GLOMERULAR FILTRATION RATE > 60.0 (>32); GLUCOSE, FASTING 86 MG/DL (70-100); SODIUM LEVEL 140 MEQ/L (136-145); TOTAL PROTEIN 6.6 GM/DL (6.4-8.2)
[2020-08-01] MEDS: LEVOTHYROXINE 150MCG TABLET (0.15MG) PO SCH (06:32)
[2020-08-01 08:00] VITALS: BP 148/65
[2020-08-01] MEDS: FERROUS SULFATE 325MG TAB PO SCH (08:08)
[2020-08-01] MEDS: CARVedilol 12.5 MG TAB PO SCH ×2 (08:09→19:54)
[2020-08-01] MEDS: DORZOLAMIDE 2% OPHTH SOLN 10 ML BTL OU SCH ×2 (08:10→19:55)
[2020-08-01] MEDS: LIDOCAINE 5% (LIDODERM) PATCH TOP SCH (08:10)
[2020-08-01] MEDS: PANTOPRAZOLE 40MG VIAL (C9113 PER 1) IV SCH ×2 (08:10→19:55)
--- NOTE | 2020-08-01 09:39 | IPNPDOC ---
Text Note Date of Service The patient was seen on 08/01/20. NOTE Subjective: Patient is an 85-year-old female with a PMHx of A fib (on Coumadin), Chronic back pain (Follows with pain management), Raynaud's, Sjgren and Anemia who was sent to [facility] for a blood transfusion. However, she was noted to be hypoxic and was sent to the emergency room instead, upon arrival to emergency room, patient was noted to be saturating at 98% - her false reading was attributed to her Raynaud's. Patient was admitted to the hospital service for further evaluation and treatment. Gastroenterology was called on cons ultation. Patient was seen and examined at the bedside. Patient denies any chest pain, short of breath, palpitations. Has been up ambulating without any difficulty. Has had a bowel movement that continues to be dark Objective: Vitals (See below) General: Lying in bed, reports the same upper back pain, AAOx3 HEENT: NC, AT CVS: RRR, +S1S2 Lungs: Fair air entry b/l, no appreciable wheezing, rhonchi or rales Abdomen: Soft, ND, NT Extremities: No evidence of edema, - Calf tenderness Assessment and plan: Acute blood loss anemia / Symptomatic anemia - likely 2/2 to GI bleed - Currently patient reports that she feels better - Hemodynamically stable and afebrile - Hemoglobin has improved appropriately - Iron panel consistent with anemia - Stool for occult blood positive - s/p 2 units PRBC - Coumadin on hold - c/w Carafate / Protonix - GI on consult; appreciate their input Chronic A fib - Currently appears to be rate controlled - s/p PM - c/w rate control with carvedilol with holding parameters - Will hold Coumadin (re: GI bleed) Aorto bi-iliac stent placement - Multiple US imaging completed - Abdominal US 12/30/2019: Mild aneurysmal dilatation of the distal abdominal aorta at 3.2 x 3.8 cm with aorto bi-iliac stent in place and central lumen patency. s/p MATT - likely 2/2 pre-renal etiology Chronic back pain - c/w Lidocaine patch - c/w adjusted dose of pain medications Chronic CHF - Not decompensated - ECHO pending - Lastic on hold Hx of Raynaud and Sjgren - Patient does not take any medications - c/w supportive care GI prophylaxis - c/w Protonix / Carafate (See above) DVT prophylaxis - c/w TEDs/Sequentials Disposition: - Awaiting clinical improvement Chanel NAVA, I+O VSChanel I+O Laboratory Tests 07/31/20 09:39 07/31/20 12:00 07/31/20 17:39 08/01/20 00:02 08/01/20 05:06 Vital Signs Date Time Temp Pulse Resp B/P (MAP) Pulse Ox O2 Delivery O2 Flow Rate FiO2 08/01/20 08:09 91 148/68 08/01/20 08:00 97.6 18 98 Room Air 07/31/20 04:41 2.0 I&O- Last 24 Hours up to 6 AM 08/01/20 06:00 Intake Total 540 ml Balance 540 ml RAHUL ANDERSON MD Aug 01, 2020 08:52
[2020-08-01 12:00] VITALS: BP 142/63
[2020-08-01 16:00] VITALS: BP 158/68
[2020-08-01] MEDS: ACETAMINOPHEN TAB 650MG DOSE (2X325MG) PO PRN (19:55)
[2020-08-01] MEDS: LATANOPROST 0.005% OPHTH SOLN 2.5 ML OU SCH (19:55)
[2020-08-01 20:00] VITALS: BP 123/57
[2020-08-02] VITALS: BP 120/58
[2020-08-02] MEDS: NORCO, ANEXSIA 5/325MG TABLET (HYDROcodone/ACETAMINOPHEN) PO PRN ×5 (03:10→23:12)
[2020-08-02 04:00] VITALS: BP 142/65
[2020-08-02] MEDS ORDERED: CYCLOBENZAPRINE 5MG TABLET PO ONE (04:45)
[2020-08-02] MEDS: SUCRALFATE 1 GM TAB PO SCH ×4 (05:10→23:12)
[2020-08-02] MEDS: LEVOTHYROXINE 150MCG TABLET (0.15MG) PO SCH (05:10)
[2020-08-02 06:09] LABS: HEMATOCRIT 28.9 % (36.0-47.0); MEAN CORPUSCULAR HEMOGLOBIN 28.5 pg (27.0-33.0); MEAN CORPUSCULAR HGB CONC 31.1 g/dl (32.0-36.5); MEAN CORPUSCULAR VOLUME 91.5 fl (80.0-96.0); PLATELET COUNT, AUTOMATED 256 10^3/uL (150-450); RED BLOOD COUNT 3.16 10^6/uL (4.00-5.40); WHITE BLOOD COUNT 4.6 10^3/uL (4.0-10.0)
[2020-08-02 06:18] LABS: INR 1.25
[2020-08-02 06:30] LABS: ALBUMIN 3.3 GM/DL (3.2-5.2); ALT/SGPT 45 U/L (12-78); BILIRUBIN,TOTAL 0.5 MG/DL (0.2-1.0); BLOOD UREA NITROGEN 26 MG/DL (7-18); CALCIUM LEVEL 8.5 MG/DL (8.8-10.2); CARBON DIOXIDE LEVEL 25 MEQ/L (21-32); CHLORIDE LEVEL 114 MEQ/L (98-107); CREATININE FOR GFR 0.73 MG/DL (0.55-1.30); GLOMERULAR FILTRATION RATE > 60.0 (>32); GLUCOSE, FASTING 90 MG/DL (70-100); POTASSIUM SERUM 4.1 MEQ/L (3.5-5.1); SODIUM LEVEL 143 MEQ/L (136-145); TOTAL PROTEIN 6.7 GM/DL (6.4-8.2)
[2020-08-02 07:19] VITALS: BP 142/65
[2020-08-02] MEDS ORDERED: SLF 3 ML SYR IV PRN (07:50)
--- NOTE | 2020-08-02 08:21 | IPNPDOC ---
Text Note Date of Service The patient was seen on 08/02/20. NOTE Subjective: Patient is an 85-year-old female with a PMHx of A fib (on Coumadin), Chronic back pain (Follows with pain management), Raynaud's, Sjgren and Anemia who was sent to [facility] for a blood transfusion. However, she was noted to be hypoxic and was sent to the emergency room instead, upon arrival to emergency room, patient was noted to be saturating at 98% - her false reading was attributed to her Raynaud's. Patient was admitted to the hospital service for further evaluation and treatment. Gastroenterology was called on cons ultation. Patient was seen and examined at the bedside. Patient reports that she still experiences some back pain. Denies any nausea, vomiting, abdominal pain, has not experience any bowel moments overnight. Denies any urinary discomfort. Has not experience any chest pain, shortness breath or palpitations. Objective: Vitals (See below) General: Laying on her side in bed, reporting some upper back pain, is awake, alert and oriented 3 HEENT: NC, AT CVS: +S1S2 Lungs: There appears to be fair air entry bilaterally without evidence of crackles or rhonchi Abdomen: Soft, nondistended, nontender Back: Point tenderness around thoracic vertebra Extremities: Lower tremors are without edema Assessment and plan: Acute blood loss anemia / Symptomatic anemia - likely 2/2 to GI bleed - Patient reports she does not feel lightheaded, dizzy or short of breath; has been admitting to the bathroom with assistance - Remains hemodynamically stable - Hemoglobin improved; remains stable - Iron panel consistent with anemia - Stool for occult blood positive - s/p 2 units PRBC - Coumadin on hold - c/w Carafate / Protonix - NPO for now - GI on consult; will go for EGD today Chronic A fib - Currently appears to be rate controlled - s/p PM - c/w rate control with carvedilol with holding parameters - Will hold Coumadin (re: GI bleed); will resume after EGD Aorto bi-iliac stent placement - Multiple US imaging completed - Abdominal US 12/30/2019: Mild aneurysmal dilatation of the distal abdominal aorta at 3.2 x 3.8 cm with aorto bi-iliac stent in place and central lumen patency. s/p MATT - likely 2/2 pre-renal etiology Chronic (thoracic) back pain - Will check XR thoracic / lumbar spine - Patient has been following with the pain clinic since 02/2018 - c/w Lidocaine patch - c/w adjusted dose of pain medications Chronic CHF - Not decompensated - ECHO pending - Lasix on hold Hx of Raynaud and Sjgren - Patient does not take any medications - c/w supportive care GI prophylaxis - c/w Protonix / Carafate (See above) DVT prophylaxis - c/w TEDs/Sequentials Disposition: - Awaiting clinical improvement VS,Chanel, I+O VS, Chanel, I+O Laboratory Tests 08/02/20 05:32 Vital Signs Date Time Temp Pulse Resp B/P (MAP) Pulse Ox O2 Delivery O2 Flow Rate FiO2 08/02/20 07:19 96.9 60 30 142/65 (90) 94 Room Air 07/31/20 04:41 2.0 I&O- Last 24 Hours up to 6 AM 08/02/20 06:00 Intake Total 1170 ml Output Total 100 ml Balance 1070 ml RAHUL ANDERSON MD Aug 02, 2020 08:21
[2020-08-02] MEDS: CARVedilol 12.5 MG TAB PO SCH ×2 (08:32→19:41)
[2020-08-02] MEDS: LIDOCAINE 5% (LIDODERM) PATCH TOP SCH (08:32)
[2020-08-02] MEDS: DORZOLAMIDE 2% OPHTH SOLN 10 ML BTL OU SCH ×2 (08:32→19:41)
[2020-08-02] MEDS: PANTOPRAZOLE 40MG VIAL (C9113 PER 1) IV SCH ×2 (08:32→19:41)
--- NOTE | 2020-08-02 09:34 | REP ---
INDICATION: Thoracic back pain. COMPARISON: None. TECHNIQUE: AP, lateral, swimmer's views of the thoracic spine. FINDINGS: Advanced osteopenia and advanced multilevel degenerative changes include endplate sclerosis, disc space narrowing, osteophytosis. Alignment and kyphosis maintained. No definite obvious acute thoracic fracture is appreciated. However, evaluation is limited. If there is considerable concern for compression injury, CT or MRI may be warranted for further investigation. IMPRESSION: Limited due to advanced osteopenia and multilevel degenerative changes. Consider CT or MRI if the patient exhibits continued symptoms. <Electronically signed by Jeff Aguilar > 08/02/20 [id number]
[2020-08-02] MEDS: CYCLOBENZAPRINE 10MG TABLET PO PRN ×2 (11:13→19:40)
--- NOTE | 2020-08-02 11:33 | ECHO ---
DATE OF PROCEDURE: 07/31/2020 Age: 85 Gender: Female Height: 147 cm Weight: 55 kg REFERRING PHYSICIAN: Mayi Matson M.D. INDICATION: Congestive heart failure. MEASUREMENTS: LA 4.7 cm IVS 1.2 cm LV 3.8 cm LVPW 1.4 cm IVC 1.9 cm FINDINGS: This study is of excellent technical quality. The patient is in atrial fibrillation with ventricular pacing. The left ventricle is normal size. Xbnv-sv-vpxoznlc left ventricular hypertrophy is noted. There is hyperdynamic LV systolic function with estimated LVEF 70% to 75%. Right ventricle appears dilated and mildly hypokinetic. There is severe biatrial enlargement. There is likely bioprosthesis in the aortic position, which was poorly visualized. Based on limited views, it appears grossly normal with minimal degenerative abnormalities. There are very prominent degenerative abnormalities of the mitral valve with severe mitral annular calcifications at the base of the posterior leaflet and mild restriction of leaflet mobility. Tricuspid valve appears normal. The pulmonic valve was poorly visualized, but on limited views, it appears normal. There are echo artifacts in the right-sided heart chambers corresponding to pacemaker leads. No pericardial effusion is noted. Inferior vena cava is borderline dilated, but it does collapse with inspiration indicative of probably normal or possibly mildly elevated central venous pressure. The aortic root is normal. The aortic arch and abdominal aorta were not well seen. Doppler interrogation of the aortic valve reveals no insufficiency and no significant stenosis with mean gradient 8 mmHg. There is approximately nhex-wy-xiermtfo mitral insufficiency and trivial mitral stenosis with mean 3 mmHg. There is moderately severe tricuspid insufficiency. Calculated pulmonary artery pressure is in the mid 50s corresponding to moderate pulmonary hypertension. Trace pulmonic insufficiency is present. Evaluation of diastolic function is inconclusive due to underlying atrial fibrillation. Based on subcostal views, there appears to be a small echodensity attached to atrial component of pacemaker lead. This could represent potentially small vegetation or thrombus. CONCLUSIONS: 1. Study is of excellent technical quality. Patient is in atrial fibrillation with ventricular pacing. 2. Normal LV size with [id number] LVH, hyperdynamic LV systolic function, estimated EF 70% to 75%. 3. 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 4. Prominent degenerative abnormalities of the mitral valve resulting in gvaz-us-wwzbxzoo insufficiency and trivial stenosis. 5. Moderately severe tricuspid insufficiency. 6. Probably normal mildly elevated central venous pressure, but moderate pulmonary hypertension. 7. Small echodensity attached to pacemaker lead possibly representing small thrombus or vegetation. 8. Severe biatrial enlargement. COMMENTS: SBE prophylaxis is recommended. MTDD
[2020-08-02 12:00] VITALS: BP 140/64
[2020-08-02] MEDS ORDERED: propofoL 200 MG/20 ML VIAL As Ordered ONE (13:59)
[2020-08-02] MEDS ORDERED: LIDOCAINE 2% 100MG/5ML SDV (FOR ANES.) As Ordered ONE (13:59)
[2020-08-02] MEDS: SLF 3 ML SYR IV SCH ×2 (14:00→19:41)
[2020-08-02] MEDS ORDERED: fentaNYL 100 MCG/2 ML INJECTION (J3010) As Ordered ONE (14:47)
[2020-08-02] MEDS ORDERED: SIMETHICONE 40MG/0.6ML DROPS 30ML As Ordered ONE (15:24)
--- NOTE | 2020-08-02 15:41 | CR.PDOC ---
General Date of Consultation: Aug 02, 2020 Referring Provider: RAHUL ANDERSON MD Attending Physician: EDDI GAN MD Consultation Referring physician / PCP : Dr. Anderson Reason for consult: Anemia with crop in hemoglobin and black stools. HPI: 85 y/o with significant PMHx including afib on warfarin, back pain (following with pain mgmt), anemia, raynaud's and sjogrens, was sent from PCP clinic for Anemia and for blood transfusions. GI was consulted for the anemia. Patient reports that she recently was taking advil for the back pain on top of her pain medication. Patient was reported some darker stools but no bright red blood per rectum. In the ER, Patient had a positive stool occult blood test. Pertinent negative GI symptoms: Patient denies nausea, vomiting, diarrhea, abdominal pain, loss of appetite, early satiety or unintentional weight loss, hematemesis, melena or hematochezia. Patient reports regular bowel movements. 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 : No blood inurine, No burning sensation of the urine ENT: No ear discharge/ pain, No dysphagia. Eyes: No photophobia. Skin: No rash Home medications: reviewed. No Plavix and No anticoagulants Medical h/o: As above. Surgical h/o: None on abdomen. Social h/o: Denies Alcohol, smoking, IVDA/ drugs. Family h/o of GI cancers - None Prior Endoscopies: None in [facility]. Prior GI evaluation: None in [facility] Exam: Vitals: reviewed General: Alert and oriented x 3, not in acute distress HEENT: No pallor, no icterus. Normal oropharynx, NO cervical lymphadenopathy. Chest: symmetric with bilateral air entry, CVS: S1, S2 heard, Abdomen: non-distended, soft, non-tender, no rigidity or guarding, no palpable masses, normal bowel sounds heard. Rectal exam: Patient refused / Deferred at this time in view of scheduled colonoscopy. 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 Moves all extremities Skin: no rash. Labs: reviewed. Imaging: reviewed. Impression: -- Symptomatic anemia with dark stools and labs showing elevated BUN levels in patient on anticoagulation ( Coumadin), -- needs further evaluation. -- Worsening back pain with prior h/o osteoporosis and disc disease. Recommendations: -- Patient educated about the prior test results and all questions answered. -- Will start on IV PPI ( consider Pantoprazole 40 mg twice daily for atleast 24 hours ) and then switch to oral Pantoprazole 40 mg twice daily. -- Continue holding Coumadin if not contraindicated. -- Avoid NSAIDs. -- In view of suspected upper GI bleeding, will schedule for EGD after the INR is normalized. As there is no overt external bleeding, no indication to reverse the anticoagulation considering the risks and benefits. -- Patient educated about the procedure(s), indications, risks (including but not limited to bleeding, infection, perforation, anesthesia risks, including ), benefits and all alternatives including conservative measures without intervention. Patient verbalized understanding and consented for the procedure(s). -- Please follow operative note for post procedure recommendations. -- Plan of care educated to patient and patient verbalized understanding and agreed. All questions answered. -- Recommendations communicated to primary team. Patient to follow with PCP upon discharge for routine medical care. Vital Signs/I&O Vital Signs Date Time Temp Pulse Resp B/P (MAP) Pulse Ox O2 Delivery O2 Flow Rate FiO2 08/02/20 12:00 97.4 66 20 140/64 (89) 95 Room Air 07/31/20 04:41 2.0 I&O- Last 24 Hours up to 6 AM 08/02/20 05:59 Intake Total 1170 ml Output Total 100 ml Balance 1070 ml Laboratory Data Labs 24H Laboratory Tests 2 08/02/20 05:32: Nucleated Red Blood Cells % (auto) 0.0, Prothrombin Time 16.0H, Prothromb Time International Ratio 1.25, Anion Gap 4L, Glomerular Filtration Rate > 60.0, Calcium Level 8.5L, Total Bilirubin 0.5, Aspartate Amino Transf (AST/SGOT) 60H, Alanine Aminotransferase (ALT/SGPT) 45, Alkaline Phosphatase 255H, Total Protein 6.7, Albumin 3.3, Albumin/Globulin Ratio 1.0L 08/02/20 13:41: Lab Scanned Report Transfusion Record CBC/BMP Laboratory Tests 08/02/20 05:32 Microbiology Microbiology 07/30/20 Respiratory Virus Panel (PCR) ([facility]) - Final, Complete Allergies Coded Allergies: ESPERANZA Inhibitors (Verified Adverse Reaction, Mild, COUGH, 07/30/20) ciprofloxacin (Verified Adverse Reaction, Mild, DIZZINESS, 07/30/20) meperidine (Verified Adverse Reaction, Mild, N/V, 07/30/20) Home Medications Scheduled Carvedilol (Carvedilol) 25 Mg Tab, 25 MG PO BID, (Reported) Dorzolamide HCl (Dorzolamide HCl) 2% 10ML Drops, 1 DROP OU BID, (Reported) Ferrous Sulfate (Ferrous Sulfate) 325 Mg Tab, 325 MG PO Q2D, (Reported) Furosemide (Furosemide) 20 Mg Tablet, 20 MG PO DAILY, (Reported) Latanoprost (Xalatan) 0.005% 2.5ML Drops, 1 DROP OU QHS, (Reported) Levothyroxine Sodium (Levothyroxine Sodium) 150 Mcg Tab, 150 MCG PO DAILY, (Reported) Lidocaine (Lidocaine) 5% Adh..patch, 1 PATCH TOP DAILY, (Reported) Omeprazole (Omeprazole) 20 Mg Capsule.dr, 20 MG PO BID, (Reported) Warfarin Sodium (Warfarin Sodium) 5 Mg Tab, 5 MG PO QPM, (Reported) 1700 Scheduled PRN Hydrocodone/Acetaminophen (Hydrocodone-Acetamin 5-325 mg) 1 Tab Tab, 1 TAB PO TID PRN for PAIN, (Reported) Nitroglycerin (Nitroglycerin) 0.4 Mg Sub, 0.4 MG SL NITRO PRN for CHEST PAIN, (Reported) EDDI GAN MD Aug 02, 2020 15:41
--- NOTE | 2020-08-02 15:59 | ROOR ---
Patient Name: Francisco J Simon Procedure Date: 08/02/2020 2:45 PM Date of : 1935 Age: 85 Room: [facility] Gender: Female Note Status: Finalized Procedure: Upper GI endoscopy Indications: Recent gastrointestinal bleeding, Suspected upper gastrointestinal bleeding Providers: Polo Tripathi MD Referring MD: 2. Inpatient 2. Inpatient, Sima MENDOZA MD Requesting Provider: Medicines: Monitored Anesthesia Care Complications: No immediate complications. Procedure: Pre-Anesthesia Assessment: - Prior to the procedure, a History and Physical was performed, and patient medications and allergies were reviewed. The patient is competent. The risks and benefits of the procedure and the sedation options and risks were discussed with the patient. All questions were answered and informed consent was obtained. Patient identification and proposed procedure were verified by the physician, the nurse and the anesthesiologist in the procedure room. Mental Status Examination: alert and oriented. Airway Examination: normal oropharyngeal airway and neck mobility. Respiratory Examination: clear to auscultation. CV Examination: normal. Prophylactic Antibiotics: The patient does not require prophylactic antibiotics. Prior Anticoagulants: The patient has taken Coumadin (warfarin), last dose was 3 days prior to procedure. ASA Grade Assessment: II - A patient with mild systemic disease. After reviewing the risks and benefits, the patient was deemed in satisfactory condition to undergo the procedure. The anesthesia plan was to use deep sedation / analgesia. Immediately prior to administration of medications, the patient was re-assessed for adequacy to receive sedatives. The heart rate, respiratory rate, oxygen saturations, blood pressure, adequacy of pulmonary ventilation, and response to care were monitored throughout the procedure. The physical status of the patient was re-assessed after the procedure. The Endoscope was introduced through the mouth, and advanced to the second part of duodenum. The upper GI endoscopy was accomplished without difficulty. The patient tolerated the procedure well. Findings: The examined esophagus was normal. No gross lesions were noted in the entire examined stomach. One 40 mm semi-sessile lipomatous polyp with ulcerated tip and stigmata of recent bleeding was found in the second portion of the duodenum. One ligature was successfully placed. There was no bleeding during and at the end of the procedure. For hemostasis, one hemostatic clip was successfully placed. Biopsies were taken with a cold forceps for histology. Verification of patient identification for the specimen was done by the physician and nurse using the patient's name, date and medical record number. Estimated blood loss was minimal. Impression: - Normal esophagus. - No gross lesions in the stomach. - One duodenal polyp ( appears benign with distal ulceration). Ligated. Clip was placed. Biopsied. Recommendation: - Patient has a contact number available for emergencies. The signs and symptoms of potential delayed complications were discussed with the patient. Return to normal activities tomorrow. Written discharge instructions were provided to the patient. - High fiber diet. - Continue present medications. - Await pathology results. - Perform an upper endoscopic ultrasound (UEUS) after studies are complete. - Resume Coumadin (warfarin) at prior dose today. Refer to primary physician for further adjustment of therapy. - Perform a colonoscopy at appointment to be scheduled. - Return to GI clinic in 4 weeks. - Return to primary care physician. Procedure Code(s): --- Professional --- 17361, 59, Esophagogastroduodenoscopy, flexible, transoral; with control of bleeding, any method 52179, Esophagogastroduodenoscopy, flexible, transoral; with biopsy, single or multiple Diagnosis Code(s): --- Professional --- K31.7, Polyp of stomach and duodenum K92.2, Gastrointestinal hemorrhage, unspecified CPT copyright 2019 [employer]. All rights reserved. The codes documented in this report are preliminary and upon instrumentation technician review may be revised to meet current compliance requirements. Polo Tripathi MD Polo Tripathi MD 08/02/2020 3:58:50 PM Electronically signed by Polo Tripathi MD Number of Addenda: 0 Note Initiated On: 08/02/2020 2:45 PM Estimated Blood Loss: Estimated blood loss: none.
[2020-08-02 16:03] VITALS: BP 132/72
[2020-08-02] MEDS ORDERED: LR 1,000 ML IV SCH (16:35)
[2020-08-02] MEDS: WARFARIN SOD 5MG TAB PO SCH (17:44)
[2020-08-02] MEDS: LATANOPROST 0.005% OPHTH SOLN 2.5 ML OU SCH (19:41)
[2020-08-02 20:00] VITALS: BP 134/64
[2020-08-03] VITALS: BP 153/66
[2020-08-03 04:00] VITALS: BP 119/57
[2020-08-03] MEDS: LEVOTHYROXINE 150MCG TABLET (0.15MG) PO SCH (05:25)
[2020-08-03] MEDS: SUCRALFATE 1 GM TAB PO SCH ×4 (05:25→23:41)
[2020-08-03] MEDS: NORCO, ANEXSIA 5/325MG TABLET (HYDROcodone/ACETAMINOPHEN) PO PRN ×3 (05:25→21:00)
[2020-08-03 05:56] LABS: HEMATOCRIT 28.6 % (36.0-47.0); HEMOGLOBIN 8.8 g/dl (12.0-15.5); MEAN CORPUSCULAR HEMOGLOBIN 28.9 pg (27.0-33.0); MEAN CORPUSCULAR HGB CONC 30.8 g/dl (32.0-36.5); MEAN CORPUSCULAR VOLUME 93.8 fl (80.0-96.0); PLATELET COUNT, AUTOMATED 241 10^3/uL (150-450); RED BLOOD COUNT 3.05 10^6/uL (4.00-5.40)
[2020-08-03 06:07] LABS: INR 1.29; PROTHROMBIN TIME 16.3 SECONDS (12.5-14.3)
[2020-08-03] MEDS: SLF 3 ML SYR IV SCH ×3 (06:15→20:12)
[2020-08-03 06:27] LABS: ALT/SGPT 42 U/L (12-78); BILIRUBIN,TOTAL 0.6 MG/DL (0.2-1.0); BLOOD UREA NITROGEN 18 MG/DL (7-18); CALCIUM LEVEL 8.6 MG/DL (8.8-10.2); CARBON DIOXIDE LEVEL 23 MEQ/L (21-32); CHLORIDE LEVEL 113 MEQ/L (98-107); GLOMERULAR FILTRATION RATE > 60.0 (>32); GLUCOSE, FASTING 78 MG/DL (70-100); POTASSIUM SERUM 4.1 MEQ/L (3.5-5.1); SODIUM LEVEL 143 MEQ/L (136-145); TOTAL PROTEIN 6.2 GM/DL (6.4-8.2)
[2020-08-03 08:00] VITALS: BP_SYST 136; BP_SYST 139; BP_DIAS 63
[2020-08-03] MEDS: CARVedilol 12.5 MG TAB PO SCH ×2 (08:17→20:12)
[2020-08-03] MEDS: DORZOLAMIDE 2% OPHTH SOLN 10 ML BTL OU SCH ×2 (08:18→20:12)
[2020-08-03] MEDS: PANTOPRAZOLE 40MG VIAL (C9113 PER 1) IV SCH ×2 (08:18→20:10)
[2020-08-03] MEDS: FERROUS SULFATE 325MG TAB PO SCH (08:18)
[2020-08-03] MEDS: LIDOCAINE 5% (LIDODERM) PATCH TOP SCH (08:18)
[2020-08-03] MEDS: CYCLOBENZAPRINE 10MG TABLET PO PRN ×2 (09:25→17:46)
[2020-08-03 11:44] VITALS: BP 137/67
--- NOTE | 2020-08-03 12:51 | IPNPDOC ---
Date Seen The patient was seen on 08/03/20. Progress Note SUBJECTIVE: Patient was seen and examined at bedside this morning. Doing well. No acute events overnight. Chest pressure surrounding, vomiting, diarrhea. Reports no signs of bleeding overnight. Vitals reviewed. Patient is hemodynamically stable. OBJECTIVE PHYSICAL EXAMINATION: VITAL SIGNS: please see below General: NAD, comfortable HEENT: PERRLA, EOMI, sclerae clear Neck: supple, normal ROM, no JVD Respiratory: lungs CTAB, no wheeze, no rales, no crackles CVS: RRR, normal S1, S2, no murmurs Abdo: soft, no masses, no hepatosplenomegaly, BS+, no rebound tenderness Extremities: no edema, pulses 2+ MSK: no joint deformities, normal ROM Neuro: no focal neuro deficits, moving all 4 extremities, CN2-12 intact. Strength 5/5 in all 4 extremities. No nystagmus. Psych: calm, cooperative, AAO x 3 LABORATORY DATA, IMAGING STUDIES, MICROBIOLOGY: Please see below. ECHOCARDIOGRAM (07/31/20): 1. Study is of excellent technical quality. Patient is in atrial fibrillation with ventricular pacing. 2. Normal LV size with [id number] LVH, hyperdynamic LV systolic function,estimated EF 70% to 75%. 3. 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 4. Prominent degenerative abnormalities of the mitral valve resulting in uauc-yo-alweusza insufficiency and trivial stenosis. 5. Moderately severe tricuspid insufficiency. 6. Probably normal mildly elevated central venous pressure, but moderate pulmonary hypertension. 7. Small echodensity attached to pacemaker lead possibly representing small thrombus or vegetation. 8. Severe biatrial enlargement. DVT prophylaxis ordered?: TEDs/SCDs ASSESSMENT AND PLAN: 85-year-old female with a PMHx of A fib (on Coumadin), Chronic back pain (Follows with pain management), Raynaud's, Sjgren and Anemia who was sent to [facility] for a blood transfusion PROBLEMS: Acute blood loss anemia / Symptomatic anemia - likely 2/2 to GI bleed - Patient reports she does not feel lightheaded, dizzy or short of breath; has been admitting to the bathroom with assistance - Remains hemodynamically stable - Hemoglobin improved; remains stable - Iron panel consistent with anemia - Stool for occult blood positive - s/p 2 units PRBC - Coumadin on hold - c/w Carafate / Protonix - GI on consult; EGD on 08/02/20 showed an ulcerated duodenal polyp - recommendation for EUS, colonoscopy outpatient. Chronic A fib - appears to be rate controlled. - c/w rate control with carvedilol with holding parameters - coumadin resumed after EGD Aorto bi-iliac stent placement - Multiple US imaging completed - Abdominal US 12/30/2019: Mild aneurysmal dilatation of the distal abdominal aorta at 3.2 x 3.8 cm with aorto bi-iliac stent in place and central lumen patency. s/p MATT - likely 2/2 pre-renal etiology Chronic (thoracic) back pain - Will check XR thoracic / lumbar spine - Patient has been following with the pain clinic since 02/2018 - c/w Lidocaine patch - c/w adjusted dose of pain medications Chronic CHF - Not decompensated - ECHO (07/31/20) reviewed as above. - Lasix on hold Questionable vegetation on ECHO - reviewed echo from 07/31/20 - small echodensity attached to pacemaker leads, possibly representing small thrombus or vegetation - I spoke to Dr. Gamble on 08/03/20, he does not feel that this findings requires further workup, and that it is a relatively common findings in patients that have had a pacemaker for a prolonged length of time - patient has been afebrile without leukocytosis throughout her entire admission - will defer further workup at this time. Hx of Raynaud and Sjgren - Patient does not take any medications - c/w supportive care GI prophylaxis - c/w Protonix / Carafate (See above) DVT prophylaxis - c/w TEDs/Sequentials Disposition: - Awaiting clinical improvement - PT and OT eval ordered, patient requires additional session to clear for home with services. VS, I&O, 24H, Fishbone Vital Signs/I&O Vital Signs Date Time Temp Pulse Resp B/P (MAP) Pulse Ox O2 Delivery O2 Flow Rate FiO2 08/03/20 12:02 20 08/03/20 11:44 97.1 68 137/67 (90) 94 Room Air 07/31/20 04:41 2.0 I&O- Last 24 Hours up to 6 AM 08/03/20 06:00 Intake Total 240 ml Output Total 250 ml Balance -10 ml Laboratory Data 24H LABS Laboratory Tests 2 08/02/20 13:41: Lab Scanned Report Transfusion Record 08/03/20 05:15: Nucleated Red Blood Cells % (auto) 0.0, Prothrombin Time 16.3H, Prothromb Time International Ratio 1.29, Anion Gap 7L, Glomerular Filtration Rate > 60.0, Calci um Level 8.6L, Total Bilirubin 0.6, Aspartate Amino Transf (AST/SGOT) 55H, Alanine Aminotransferase (ALT/SGPT) 42, Alkaline Phosphatase 229H, Total Protein 6.2L, Albumin 3.0L, Albumin/Globulin Ratio 0.9L CBC/BMP Laboratory Tests 08/03/20 05:15 Microbiology Microbiology 07/30/20 Respiratory Virus Panel (PCR) (MARIANNE) - Final, Complete MARTHA ALMEIDA MD Aug 03, 2020 12:51
[2020-08-03 16:00] VITALS: BP 132/60
[2020-08-03] MEDS: WARFARIN SOD 5MG TAB PO SCH (17:47)
[2020-08-03] MEDS: ACETAMINOPHEN TAB 650MG DOSE (2X325MG) PO PRN (19:43)
[2020-08-03 20:00] VITALS: BP 110/65
[2020-08-03] MEDS: LATANOPROST 0.005% OPHTH SOLN 2.5 ML OU SCH (20:12)
[2020-08-04] VITALS: BP 133/63
[2020-08-04] MEDS: CYCLOBENZAPRINE 10MG TABLET PO PRN ×2 (02:09→12:57)
[2020-08-04 04:00] VITALS: BP 127/61
[2020-08-04] MEDS: LEVOTHYROXINE 150MCG TABLET (0.15MG) PO SCH (05:22)
[2020-08-04] MEDS: SUCRALFATE 1 GM TAB PO SCH ×2 (05:22→12:01)
[2020-08-04] MEDS: SLF 3 ML SYR IV SCH ×2 (05:23→14:12)
[2020-08-04] MEDS: NORCO, ANEXSIA 5/325MG TABLET (HYDROcodone/ACETAMINOPHEN) PO PRN ×2 (05:48→12:01)
[2020-08-04 06:12] LABS: HEMATOCRIT 27.7 % (36.0-47.0); HEMOGLOBIN 8.7 g/dl (12.0-15.5); MEAN CORPUSCULAR HEMOGLOBIN 29.6 pg (27.0-33.0); MEAN CORPUSCULAR HGB CONC 31.4 g/dl (32.0-36.5); MEAN CORPUSCULAR VOLUME 94.2 fl (80.0-96.0); PLATELET COUNT, AUTOMATED 230 10^3/uL (150-450); RED BLOOD COUNT 2.94 10^6/uL (4.00-5.40); WHITE BLOOD COUNT 4.8 10^3/uL (4.0-10.0)
[2020-08-04 06:22] LABS: INR 1.62; PROTHROMBIN TIME 19.6 SECONDS (12.5-14.3)
[2020-08-04 06:34] LABS: ALBUMIN 3.2 GM/DL (3.2-5.2); ALT/SGPT 42 U/L (12-78); BILIRUBIN,TOTAL 0.6 MG/DL (0.2-1.0); BLOOD UREA NITROGEN 15 MG/DL (7-18); CALCIUM LEVEL 9.1 MG/DL (8.8-10.2); CARBON DIOXIDE LEVEL 26 MEQ/L (21-32); CHLORIDE LEVEL 109 MEQ/L (98-107); CREATININE FOR GFR 0.67 MG/DL (0.55-1.30); GLOMERULAR FILTRATION RATE > 60.0 (>32); GLUCOSE, FASTING 78 MG/DL (70-100); POTASSIUM SERUM 3.9 MEQ/L (3.5-5.1); SODIUM LEVEL 138 MEQ/L (136-145); TOTAL PROTEIN 6.2 GM/DL (6.4-8.2)
[2020-08-04 08:00] VITALS: BP 108/53
[2020-08-04 08:35] VITALS: BP 108/53
[2020-08-04] MEDS: CARVedilol 12.5 MG TAB PO SCH (08:35)
[2020-08-04] MEDS: DORZOLAMIDE 2% OPHTH SOLN 10 ML BTL OU SCH (08:41)
[2020-08-04] MEDS: LIDOCAINE 5% (LIDODERM) PATCH TOP SCH (08:41)
[2020-08-04] MEDS: PANTOPRAZOLE 40MG VIAL (C9113 PER 1) IV SCH (08:41)
[2020-08-04] MEDS ORDERED: HYDR-3713 PO (11:46)
[2020-08-04] MEDS ORDERED: WARF-23 PO (11:46)
[2020-08-04] MEDS ORDERED: PANT40TA29 PO (11:46)
[2020-08-04] MEDS ORDERED: FURO20TA2 PO (11:46)
[2020-08-04] MEDS ORDERED: SUCR1TA PO (11:46)
[2020-08-04] MEDS ORDERED: ACET1TAB55 PO (11:46)
--- NOTE | 2020-08-04 11:57 | DS.PDOC ---
Discharge Summary General Date of Admission Jul 30, 2020 at 19:28 Date of Discharge 08/04/20 Discharge Summary PROCEDURES PERFORMED DURING STAY: [None]. ADMITTING DIAGNOSES: Acute blood loss anemia likely 2/2 GI bleed hx of chronic atrial fibrillation Aorto bi iliac stent placement MATT Chronic thoracic back pain HFpEF Hx of raynaud and sjogrens DISCHARGE DIAGNOSES: Acute blood loss anemia GI bleed hx of chronic atrial fibrillation Aorto bi iliac stent placement MATT Chronic thoracic back pain HFpEF Hx of raynaud and sjogrens COMPLICATIONS/CHIEF COMPLAINT: Anemia,Gi Bleed. HISTORY OF PRESENT ILLNESS: 85 y/o with significant PMHx including afib on warfarin, back pain (following with pain mgmt), anemia, raynaud's and sjogrens, presents to [facility] for blood transfusions. While getting her transfusion, it was reported that she was hypoxic; however, she has raynauds and cold extremities which may be giving a false pulse ox reading. She states that she's been taking some advil on top of her pain meds; however, it's unknown just how much NSAIDs she's been taking on top of her pain meds (She states she's taking about 2 per day). She was sent down to the ER, however, satting above 90% on RA without any acute distress or sob. Pt gets frequent blood transfusions due to chronic anemia (unknown source) which she takes iron. In the ER, Pt had a positive stool occult for blood and 2 prbc were ordered to be transfused. Pt denies CP, sob, n/v/d. She does have slight abdominal discomfort HOSPITAL COURSE: Acute blood loss anemia / Symptomatic anemia - likely 2/2 to GI bleed - Patient reports she does not feel lightheaded, dizzy or short of breath; has been admitting to the bathroom with assistance - Remains hemodynamically stable - Hemoglobin improved; remains stable - Iron panel consistent with anemia - Stool for occult blood positive - s/p 2 units PRBC - Coumadin on hold - c/w Carafate / Protonix - GI on consult; EGD on 08/02/20 showed an ulcerated duodenal polyp - recommendation for EUS, colonoscopy outpatient. Chronic A fib - appears to be rate controlled. - c/w rate control with carvedilol with holding parameters - coumadin resumed after EGD Aorto bi-iliac stent placement - Multiple US imaging completed - Abdominal US 12/30/2019: Mild aneurysmal dilatation of the distal abdominal aorta at 3.2 x 3.8 cm with aorto bi-iliac stent in place and central lumen patency. s/p MATT - likely 2/2 pre-renal etiology Chronic (thoracic) back pain - Will check XR thoracic / lumbar spine - Patient has been following with the pain clinic since 02/2018 - c/w Lidocaine patch - c/w adjusted dose of pain medications Chronic CHF - Not decompensated - ECHO (07/31/20) reviewed as above. - Lasix on hold Questionable vegetation on ECHO - reviewed echo from 07/31/20 - small echodensity attached to pacemaker leads, possibly representing small thrombus or vegetation - I spoke to Dr. Gamble on 08/03/20, he does not feel that this findings requires further workup, and that it is a relatively common findings in patients that have had a pacemaker for a prolonged length of time - patient has been afebrile without leukocytosis throughout her entire admission - will defer further workup at this time. Hx of Raynaud and Sjgren - Patient does not take any medications - c/w supportive care GI prophylaxis - c/w Protonix / Carafate (See above) DVT prophylaxis - c/w TEDs/Sequentials DISCHARGE MEDICATIONS: Please see below. ALLERGIES: Please see below. PHYSICAL EXAMINATION ON DISCHARGE: VITAL SIGNS: please see below General: NAD, comfortable HEENT: PERRLA, EOMI, sclerae clear Neck: supple, normal ROM, no JVD Respiratory: lungs CTAB, no wheeze, no rales, no crackles CVS: RRR, normal S1, S2, no murmurs Abdo: soft, no masses, no hepatosplenomegaly, BS+, no rebound tenderness Extremities: no edema, pulses 2+ MSK: no joint deformities, normal ROM Neuro: no focal neuro deficits, moving all 4 extremities, CN2-12 intact. Strength 5/5 in all 4 extremities. No nystagmus. Psych: calm, cooperative, AAO x 3 LABORATORY DATA: Please see below. IMAGING: CXR (07/30/20): Moderate cardiomegaly. Mild vascular congestion and possible mild degree of interstitial edema. Thoracic spine XR (08/02/20): Limited due to advanced osteopenia and multilevel degenerative changes. Conside r CT or MRI if the patient exhibits continued symptoms. PROGNOSIS: good ACTIVITY: walk with walker. Home PT ordered. DIET: 2G sodium DISCHARGE PLAN: DC home with PPI, carafate. F/u PCP. F/u with Dr. Tripathi for outpatient colonoscopy. Resume warfarin on DC. Home health ordered. DISPOSITION: . DISCHARGE INSTRUCTIONS: . Please follow up with PCP 3-5 days . Please follow up with GI in 1-2 weeks . Please take your medications as prescribed . If you develop bleeding, weakness, fatigue, chest pain, shortness of breath, fevers, or otherwise worsening of your symptoms, please call 911 or return to the nearest emergency room . ITEMS TO FOLLOWUP ON ON OUTPATIENT: 1. Please check INR 2. Follow up on Pathology report from EGD polyp bx from 08/03/20 DISCHARGE CONDITION: Stable TIME SPENT ON DISCHARGE: 35 minutes Vital Signs/I&Os Vital Signs Date Time Temp Pulse Resp B/P (MAP) Pulse Ox O2 Delivery O2 Flow Rate FiO2 08/04/20 08:35 108/53 08/04/20 08:00 97.7 62 17 96 Room Air 07/31/20 04:41 2.0 I&O- Last 24 Hours up to 6 AM 08/04/20 06:00 Intake Total 400 ml Output Total 350 ml Balance 50 ml Laboratory Data Labs 24H Laboratory Tests 2 08/04/20 05:23: Nucleated Red Blood Cells % (auto) 0.0, Prothrombin Time 19.6H, Prothromb Time International Ratio 1.62, Anion Gap 3L, Glomerular Filtration Rate > 60.0, Calcium Level 9.1, Total Bilirubin 0.6, Aspartate Amino Transf (AST/SGOT) 57H, Alanine Aminotransferase (ALT/SGPT) 42, Alkaline Phosphatase 219H, Total Protein 6.2L, Albumin 3.2, Albumin/Globulin Ratio 1.1L CBC/BMP Laboratory Tests 08/04/20 05:23 Microbiology Microbiology 07/30/20 Respiratory Virus Panel (PCR) (MARIANNE) - Final, Complete Discharge Medications Scheduled Carvedilol (Carvedilol) 25 Mg Tab, 25 MG PO BID, (Reported) Dorzolamide HCl (Dorzolamide HCl) 2% 10ML Drops, 1 DROP OU BID, (Reported) Ferrous Sulfate (Ferrous Sulfate) 325 Mg Tab, 325 MG PO Q2D, (Reported) Furosemide (Furosemide) 20 Mg Tablet, 20 MG PO DAILY Latanoprost (Xalatan) 0.005% 2.5ML Drops, 1 DROP OU QHS, (Reported) Levothyroxine Sodium (Levothyroxine Sodium) 150 Mcg Tab, 150 MCG PO DAILY, (Reported) Lidocaine (Lidocaine) 5% Adh..patch, 1 PATCH TOP DAILY, (Reported) Pantoprazole Sodium (Pantoprazole Sodium) 40 Mg Tablet.dr, 40 MG PO DAILY Sucralfate (Sucralfate) 1 Gm Tablet, 1 GM PO TID Warfarin Sodium (Warfarin Sodium) 5 Mg Tab, 5 MG PO QPM 1700 Scheduled PRN Acetaminophen (Acetaminophen) 325 Mg Tablet, 650 MG PO Q6HP PRN for PAIN / FEVER Hydrocodone/Acetaminophen (Hydrocodone-Acetamin 5-325 mg) 1 Tab Tab, 1 TAB PO TID PRN for PAIN Nitroglycerin (Nitroglycerin) 0.4 Mg Sub, 0.4 MG SL NITRO PRN for CHEST PAIN, (Reported) Allergies Coded Allergies: ESPERANZA Inhibitors (Verified Adverse Reaction, Mild, COUGH, 07/30/20) ciprofloxacin (Verified Adverse Reaction, Mild, DIZZINESS, 07/30/20) meperidine (Verified Adverse Reaction, Mild, N/V, 07/30/20) MARTHA ALMEIDA MD Aug 04, 2020 11:57
[2020-08-04 12:00] VITALS: BP 151/64
[2020-08-04] MEDS: ACETAMINOPHEN TAB 650MG DOSE (2X325MG) PO PRN (16:13)
== END 2020-08-04 17:05 | disposition home health service (06) | DRG 394 ==
LOC: M ED 14:41 → M ED INP 19:28 → M PCU 21:03
PROVIDERS: ADMIT Internal Medicine; ATTEND Family Medicine
PROC: 30233N1 Transfusion of Nonautologous Red Blood Cells into Peripheral Vein, Percutaneous Approach (ICD-10-PCS; principal; 2020-07-30)
PROC: 0DB98ZX Excision of Duodenum, Via Natural or Artificial Opening Endoscopic, Diagnostic (ICD-10-PCS; 2020-08-02)
PROC: 0W3P8ZZ Control Bleeding in Gastrointestinal Tract, Via Natural or Artificial Opening Endoscopic (ICD-10-PCS; 2020-08-02)
DX: K31.7 Polyp of stomach and duodenum (principal); D62 Acute posthemorrhagic anemia; I48.20 Chronic atrial fibrillation, unspecified; N17.9 Acute kidney failure, unspecified; K92.2 Gastrointestinal hemorrhage, unspecified; M35.00 Sjogren syndrome, unspecified; I73.00 Raynaud's syndrome without gangrene; I50.9 Heart failure, unspecified; M54.6 Pain in thoracic spine; Z95.0 Presence of cardiac pacemaker; Z79.899 Other long term (current) drug therapy; Z88.8 Allergy status to other drugs, medicaments and biological substances; J45.909 Unspecified asthma, uncomplicated; M81.0 Age-related osteoporosis without current pathological fracture; Z79.01 Long term (current) use of anticoagulants; E03.9 Hypothyroidism, unspecified

== ENCOUNTER → 2020-07-30 | Outpatient (CLI) | payer MEDICARE ==
[~2020-07-30] MED LIST changes: +DORZ2SOL4 OU; +LIDO1PAD TOP; +LOSA25TA14 PO; +OMEP-218 PO; +XALA0.007 OU
--- NOTE | 2020-07-30 09:07 | REP ---
INDICATION: ABNORMAL LEVELS OF OTHER SERUM ENZYMES COMPARISON: None. TECHNIQUE: Real time brar scale ultrasound examination using curved array transducer. FINDINGS: Liver is normal in contour, size, and echogenicity without focal hepatic lesions identified. Pancreas is incompletely evaluated due to interposed bowel gas. The gallbladder demonstrates layering sludge and few small presumed gallbladder polyps measuring less than 3 mm. No wall thickening, or pericholecystic fluid. Common bile duct is upper limits of normal at 8 mm diameter. Right kidney is normal in reniform shape without hydronephrosis and measures 9.7 x 4.0 x 3.8 cm. No ascites in the visualized right upper quadrant. IMPRESSION: 1. Small amount of gallbladder sludge and possible small benign polyps less than 3 mm. <Electronically signed by Jeff Aguilar > 07/30/20 0924
== END ==
LOC: M RAD 07:50
PROVIDERS: ATTEND Internal Medicine
DX: R74.8 Abnormal levels of other serum enzymes (principal)

== ENCOUNTER → 2020-07-30 | Outpatient (REF) | payer MEDICARE | LOC: M LAB REF 14:44 | PROVIDERS: ATTEND Nurse Practitioner Adult Health | DX: D50.9 Iron deficiency anemia, unspecified (principal) ==

== ENCOUNTER → 2020-08-18 | Outpatient (CLI) | payer MEDICARE ==
[~2020-08-18] MED LIST changes: +ACET1TAB55 PO; +DORZ2SOL4 OU; +LIDO1PAD TOP; +LOSA25TA14 PO; +OMEP-218 PO; +PANT40TA29 PO; +SUCR1TA PO; +XALA0.007 OU
--- NOTE | 2020-08-21 01:27 | ECWPNPC ---
PATIENT NAME: NADIRA MANSFIELD : 1935 GENDER: FEMALE VISIT DATE: 08/18/2020 DISCHARGE DATE: 08/18/20 1450 VISIT LOCKED DATE TIME: PHYSICIAN: MAYCO JACKSON RESOURCE: MAYCO JACKSON REASON FOR APPOINTMENT 1. MEDICATION MANAGEMENT/URINE TOXICOLOGY HISTORY OF PRESENT ILLNESS GENERAL: BEING SEEN TODAY FOR ROUTINE FOLLOW-UP AND MEDICATION MANAGEMENT FOR PERSISTENT RIGHT THORACIC PAIN. ACCOMPANIED IN THE EXAM ROOM WITH HER SON. PATIENT IS VERY UNCOMFORTABLE. SHE IS SHORT OF BREATH. SHE HAS SWELLING IN HER FEET AND LOWER EXTREMITIES. SHE WAS SEEN THIS MORNING BY PRIMARY CARE. PATIENT IS TAKING HYDROCODONE 10/325 AND TAKING APPROXIMATELY 4 TABLETS A DAY WITHOUT IMPROVEMENT IN HER PAIN. RATING PAIN LEVEL A 15/10 VAS.-. FALL RISK SCREENING: SCREENING : NO FALLS REPORTED IN THE LAST YEAR. PAIN SCREENING: PATIENT HAS A COMPLAINT OF ACUTE OR CHRONIC PAIN :YES LOCATION OF PAIN:UPPER BACK INTENSITY OF PAIN (SCALE OF 1 TO 10):15 WHAT DOES YOUR PAIN FEEL LIKE:THROBBING, SHOOTING DURATION:CONTINOUS, CONSTANT, ALL DAY PAIN IS INCREASED BY:ACTIVITIES, OTHERS SOMETIMES MOVING A PILLOW PAIN IS DECREASED BY:USE OF PAIN MEDICATIONS NURSING NOTE: -. PAIN CENTER INTAKE QUESTIONS: DO YOU HAVE A HISTORY OF MRSA? :NO DO YOU TAKE A BLOOD THINNERS? :YES WARFARIN DO YOU HAVE ANY BLEEDING DISORDERS? :YES ANY NEW NUMBNESS OR WEAKNESS IN YOUR LEGS OR ARMS? :NO MUSCLE PAIN RIGHT LEG CONTINUES ANY PACEMAKER,DEFIBRILLATOR, OR DORSAL COLUMN STIMULATOR? :YES PACEMAKER DO YOU HAVE ANY RASHES OR OPEN SORES? :NO ARE YOU ALLERGIC TO IV DYE? :NO ARE YOU DIABETIC? :NO ANY NEW PROBLEMS WITH YOUR MEDICATIONS? :NO HAVE YOU RECEIVED A VACCINE IN THE PAST 30 DAYS? :YES IF SO WHAT VACCINE AND WHEN? 2ND COVID 08/13/2020 DO YOU PLAN TO RECEIVE A VACCINE IN THE NEXT 21 DAYS? :NO DO YOU NEED ANY PRESCRIPTION? :NO DO YOU TAKE ANY IMMUNOSUPPRESSIVE MEDICATIONS? :NO IS THERE A CHANCE YOU COULD BE ? :NO ARE YOU BREAST FEEDING? :NO CURRENT MEDICATIONS TAKING WARFARIN SODIUM 5 MG TABLET TK DIRECTED ORAL 5 MGS MON, WED, FRI,SAT.; 7.5 MGS ON SUN. TU TAKING CARVEDILOL 25 MG TABLET TK 1 T PO BID ORAL TAKING LEVOTHYROXINE SODIUM 150 MCG TABLET TK 1 T PO QD ORAL TAKING LOSARTAN POTASSIUM 50 MG TABLET TK 1 T PO QHS ORAL TAKING POLYETHYLENE GLYCOL 3350 - POWDER MIX 17 GRAMS OF POWDER IN WATER OR JUICE AND DRINK DAILY ORAL TAKING LASIX 40 MG TABLET 1 TABLET ORALLY ONCE A DAY TAKING DORZOLAMIDE HCL 2 % SOLUTION INT 1 GTT IN OU BID OPHTHALMIC TAKING NITROSTAT 0.4 MG TABLET SUBLINGUAL SUBLINGUAL TAKING LATANOPROST 0.005 % SOLUTION INT 1 GTT IN EACH EYE IN THE MORNING OPHTHALMIC DAILY TAKING SALONPAS LIDOCAINE PLUS 4-10 % CREAM DIRECTED TOPICALLY NEEDED TAKING THERAWORX RELIEF - FOAM DIRECTED EXTERNALLY NEEDED TAKING HYDROCODONE-ACETAMINOPHEN 10-325 MG TABLET 1 TABLET NEEDED ORALLY EVERY 6 HRS PRN MDD4 NOT-TAKING SENNA 8.6 MG TABLET TK 1 TO 2 TS PO QHS PRN ORAL NOT-TAKING GABAPENTIN 100 MG CAPSULE 1 CAPSULE ORALLY BID NOT-TAKING TURMERIC COMPLEX/BLACK PEPPER 500-3 MG CAPSULE ORALLY NOT-TAKING TYLENOL EXTRA STRENGTH 500 MG TABLET 1 TABLET NEEDED ORALLY EVERY 6 HRS NOT-TAKING FERROUS SULFATE 325 (65 FE) MG TABLET TK 1 T PO EVERY DAY ORAL NOT-TAKING CYMBALTA 20 MG CAPSULE DELAYED RELEASE PARTICLES 1 CAPSULE ORALLY DAILY, NOTES: NOT TAKING (BAD SIDE EFFECTS) NOT-TAKING BUTRANS 5 MCG/HR PATCH WEEKLY 1 PATCH TO SKIN TRANSDERMAL 1 PATCH Q 7 DAYS =MDD, NOTES: TOO EXPENSIVE MEDICATION LIST REVIEWED AND RECONCILED WITH THE PATIENT PAST MEDICAL HISTORY BACK PAIN ASTHMA ( PT DENIES) A FIB AORTIC VALVE DISORDER, CAD 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 OVERLOAD CHRONIC KIDNEY DISEASE HYPOTHYROIDISM OSTEOPOROSIS WITH HISTORY OF COMPRESSION FRACTURE SJOGRENS SYNDROME ANEMIA GLAUCOMA RAYNAUD'S BLEED IN THE STOMACH ALLERGIES ESPERANZA INHIBITORS: COUGH DEMEROL: N/V CIPRO: THROAT TIGHTEN NITROFURANTOIN: RASH AMOXICILLIN: ITCH / SWELLING HANDS CYMBALTA: DRY THROAT, DECREASE IN URINARY FREQUENCY - SIDE EFFECTS GABAPENTIN: DIZZINESS - SIDE EFFECTS SURGICAL HISTORY AAA ENDOVASCULAR GRAFT 06/05/06 GLAUCOMA SHUNT 2010 & 2011 HEART VALVE 10/01 PACEMAKER 07/31 14 CAB X 3 2005 HERNIA X 3 12/24/17 SOCIAL HISTORY GENERAL: TOBACCO USE ARE YOU A:NONSMOKER LATEX QUESTIONNAIRE LATEX ALLERGY : HAVE YOU EVER DEVELOPED ANY TYPE OF REACTION AFTER HANDLING LATEX PRODUCTS SUCH RUBBER GLOVES, CONDOMS, DIAPHRAGMS, BALLOONS, SOCKS, OR UNDERWEAR?NO LATEX ALLERGY : HAVE YOU EVER DEVELOPED ANY TYPE OF REACTION DURING OR AFTER DENTAL APPOINTMENT, VAGINAL/RECTAL EXAMINATION, SURGICAL PROCEDURE, OR ANY OTHER EXPOSURE?NO LATEX RISK : HAVE YOU EVER HAD ANY DIFFICULTY BREATHING OR HIVES AFTER EATING OR HANDLING ANY FRUITS, OR VEGETABLES; SUCH KIWI, BANANAS, STONE FRUITS, OR CHESTNUTSNO LATEX RISK : DO YOU HAVE A PREVIOUS PERSONAL HISTORY OF MORE THAN NINE SURGERIES, SPINA BIFIDA, OR REPEATED CATHERIZATIONS? YES - PLEASE INDICATE : > 9 SURGERIES LATEX RISK : ARE YOU FREQUENTLY EXPOSED TO LATEX PRODUCTS IN YOUR OCCUPATION?NO DATE ASKED : 08/18/2020 ALCOHOL USE: NO. ALCOHOL SCREENING DID YOU HAVE A DRINK CONTAINING ALCOHOL IN THE PAST YEAR?NO POINTS0 INTERPRETATIONNEGATIVE RECREATIONAL DRUG USE DRUG USE?NO CAFFEINE CAFFEINE USE?YES HOW OFTEN AND HOW MUCH? COFFEE -2CUPS PER DAY YAZIDISM [id number] MUSLIM LANGUAGE LANGUAGES SPOKEN:TAMAZIGHT EDUCATION LEVEL OF EDUCATION:NOT FINISHED COLLEGE LEARNING BARRIERS / SPECIAL NEEDS CHANGE FROM LAST VISIT?NO BARRIERS TO LEARNING?NO HEARING IMPAIRED?YES [place] RIGHT EAR. 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 10. - PFS REFERRAL NEEDED?NO CLERGY REFERRAL NEEDED?NO PUBLIC HEALTH REFERRAL NEEDED?NO HAS THE PATIENT BEEN EDUCATED REGARDING HIS/HER PLAN OF CARE?YES HAS THE PATIENT BEEN EDUCATED REGARDING PAIN, THE RISK FOR PAIN, THE IMPORTANCE OF EFFECTIVE PAIN MANAGEMENT, AND THE PAIN ASSESSMENT PROCESS?YES ADVANCE DIRECTIVE ADVANCE DIRECTIVE DISCUSSED WITH PATIENT:YES HCP IS ISHA MANSFIELD HOSPITALIZATION/MAJOR DIAGNOSTIC PROCEDURE SEE ABOVE SURGERY CHILD REVIEW OF SYSTEMS CONSTITUTIONAL: ANY RECENT FEVER NO . CHILLS NO . WEIGHT CHANGE OF UNKNOWN REASONS NO . GASTROENTEROLOGY: NEW UNEXPLAINABLE CHANGES IN BOWEL CONTROL NO . CONSTIPATION NO . GENITOURINARY: ANY NEW CHANGE IN BLADDER CONTROL? NO . NEUROLOGY: NEW ONSET DIZZINESS OR NEUROLOGICAL CHANGES NOT MENTIONED NO . NEW NUMBNESS OR PAIN PATTERNS NOT MENTIONED AND PERTINENT TO TODAY'S VISIT NO . CARDIOLOGY: NEW CHEST PRESSURE NO . PATIENT DENIES NO . RESPIRATORY: UNEXPLAINABLE COUGH NO . NEW SHORTNESS OF BREATH NO . VITAL SIGNS WT 137.2 LBS, HT 58 IN, BMI 28.67 INDEX, BP 165/77 MM HG, HR 66 /MIN, RR 18 /MIN, TEMP 96.0 F, OXYGEN SAT % 99%, SAFE IN ENV? (Y/N) YES, NA INITIALS AW 1356T.DIXIE METZ. EXAMINATION GENERAL EXAMINATION: GENERAL PATIENT IS BREATHING HEAVY AND PACING IN ROOM.APPEARS UNCOMFORTABLE.SON ACCOMPANIES IN EXAM ROOM.. NECK:NO LYMPHADENOPATHY, SUPPLE. LUNGS:CLEAR TO AUSCULTATION BILATERALLY, NO WHEEZES, RHONCHI, RALES. HEART:NO MURMURS, REGULAR RATE AND RHYTHM. THORACIC SPINE:EXTREME TENDERNESS NOTED MID THORACIC -RIGHT PARASPINAL REGION. ASSESSMENTS PAIN IN THORACIC SPINE - M54.6 (PRIMARY) TREATMENT PAIN IN THORACIC SPINE STOP HYDROCODONE-ACETAMINOPHEN TABLET, 10-325 MG, 1 TABLET NEEDED, ORALLY, EVERY 6 HRS PRN MDD4 START OXYCODONE-ACETAMINOPHEN TABLET, 5-325 MG, 1 TABLET NEEDED, ORALLY, EVERY 6 HRS MDD4, 30 DAYS, 120 NOTES: PATIENT HAS BECOME TOLERANT OF HYDROCODONE 10/325. TODAY WE WILL SWITCH THIS TO OXYCODONE 5/325 AND SHE MAY TAKE 1 TABLET UP TO 4 TIMES A DAY. PATIENT WILL BE SEEN IN FOLLOW-UP IN 2 MONTHS. ADVISED TO BRING HER MEDICATIONS IN TO EVERY CLINIC VISIT. PROCEDURE CODES FA211 ESTABILISHED PATIENT [facility] CHARGE DISPOSITION & COMMUNICATION FOLLOW UP 2 MONTHS (REASON: PILL COUNT IDENTIFICATION/FOLLOW-UP ON OXYCODONE 5/325) ELECTRONICALLY SIGNED BY LILLIAM ALVARADO ON 08/20/2020 AT 04:01 PM EDT DISCLAIMER : THIS IS A VISIT SUMMARY EXTRACTED FROM THE [facility] CHART. IT IS NOT A COPY OF THE [facility] PROGRESS NOTE. ROSEANN
== END ==
LOC: M PAIN 13:45
PROVIDERS: ATTEND Nurse Practitioner Family
DX: M54.6 Pain in thoracic spine (principal); J45.909 Unspecified asthma, uncomplicated; E03.9 Hypothyroidism, unspecified; Z95.0 Presence of cardiac pacemaker; Z88.1 Allergy status to other antibiotic agents; Z88.8 Allergy status to other drugs, medicaments and biological substances; Z79.01 Long term (current) use of anticoagulants; Z79.899 Other long term (current) drug therapy

== ENCOUNTER → 2020-08-24 | Outpatient (REF) | payer MEDICARE ==
[2020-08-24 13:24] LABS: PROTHROMBIN TIME 70.8 SECONDS (12.5-14.3)
[2020-08-24 13:46] LABS: INR 8.28
== END ==
LOC: M LAB REF 12:41
PROVIDERS: ATTEND Internal Medicine
DX: Z51.81 Encounter for therapeutic drug level monitoring (principal); Z79.01 Long term (current) use of anticoagulants; I48.20 Chronic atrial fibrillation, unspecified

== ENCOUNTER 2020-09-12 05:48 | Inpatient (IN) | payer MEDICARE ==
[~2020-09-12] VITALS: Ht 147.3 cm; Wt 56.8 kg
[2020-09-12] MEDS ORDERED: MORPHINE 4 MG/ML 1ML VIAL/SYRINGE (J2270) IV ONE (05:55)
[2020-09-12] MEDS ORDERED: ONDANSETRON 4MG/2ML VIAL IV ONE (06:15)
[2020-09-12] MEDS: GASTROGRAFIN SOLUTION 30ML PO SCH ×2 (06:44→07:21)
[2020-09-12 06:50] LABS: BASO # 0.1 10^3/uL (0.0-0.2); BASO % 0.8 % (0.0-1.0); EOS % 0.4 % (0.0-3.0); HEMATOCRIT 34.7 % (36.0-47.0); HEMOGLOBIN 10.7 g/dl (12.0-15.5); LYMPH # 1.3 10^3/uL (1.5-5.0); LYMPH % 16.9 % (24.0-44.0); MEAN CORPUSCULAR HEMOGLOBIN 28.6 pg (27.0-33.0); MEAN CORPUSCULAR HGB CONC 30.8 g/dl (32.0-36.5); MEAN CORPUSCULAR VOLUME 92.8 fl (80.0-96.0); MONO # 0.3 10^3/uL (0.0-0.8); MONO % 3.5 % (2.0-8.0); PLATELET COUNT, AUTOMATED 194 10^3/uL (150-450); RED BLOOD COUNT 3.74 10^6/uL (4.00-5.40); WHITE BLOOD COUNT 7.7 10^3/uL (4.0-10.0)
[2020-09-12 07:00] LABS: INR 1.25
[2020-09-12 07:01] LABS: PARTIAL THROMBOPLASTIN TIME 34.7 SECONDS (24.2-38.5)
[2020-09-12 07:17] LABS: ALBUMIN 3.8 GM/DL (3.2-5.2); ALT/SGPT 40 U/L (12-78); BILIRUBIN,DIRECT 0.3 MG/DL (0.0-0.2); BILIRUBIN,TOTAL 0.6 MG/DL (0.2-1.0); BLOOD UREA NITROGEN 27 MG/DL (7-18); CALCIUM LEVEL 9.8 MG/DL (8.8-10.2); CARBON DIOXIDE LEVEL 30 MEQ/L (21-32); CHLORIDE LEVEL 98 MEQ/L (98-107); CPK CREATINE PHOSPHOKINASE 98 U/L (26-192); CREATININE FOR GFR 0.84 MG/DL (0.55-1.30); GLOMERULAR FILTRATION RATE > 60.0 (>32); GLUCOSE, FASTING 163 MG/DL (70-100); LIPASE 73 U/L (73-393); MB/CK RELATIVE INDEX 3.06 (< OR =4); POTASSIUM SERUM 3.8 MEQ/L (3.5-5.1); SODIUM LEVEL 134 MEQ/L (136-145); TOTAL PROTEIN 7.7 GM/DL (6.4-8.2); TROPONIN I 0.03 NG/ML (< 0.10)
[2020-09-12] MEDS ORDERED: ISOVUE-370 76% 100ML VIAL As Ordered ONE (07:56)
[2020-09-12] MEDS: DORZOLAMIDE 2% OPHTH SOLN 10 ML BTL OU SCH ×2 (09:00→21:00)
[2020-09-12] MEDS ORDERED: ENOXAPARIN 40MG/0.4ML SYRINGE (J1650 PER 10MG) SC SCH (09:00)
--- NOTE | 2020-09-12 09:05 | REP ---
INDICATION: umbilical hernia. COMPARISON: 03/12/2019 TECHNIQUE: Axial contrast-enhanced images from the lung bases to the pubic symphysis using 100 cc Isovue 370 intravenous contrast material. . This CT examination was performed using the following dose reduction techniques: Automated exposure control, adjustment of mA and/or kv according to the patient's size, and the use of iterative reconstruction technique. FINDINGS: Examination is significantly limited due to the lack of intravenous contrast enhancement as well as ascites and incomplete opacification of the bowel. Examination demonstrates moderate amount of ascites throughout the abdomen and pelvis. The opacified small bowel has a relatively normal appearance. However, the more distal jejunum and ileum demonstrate mucosal thickening and mild to moderate fluid distension. The colon demonstrates moderate fecal stasis and is otherwise collapsed without colonic dilatation or significant fluid. Sigmoid diverticulosis noted without definite acute diverticulitis. These findings are suspicious for underlying infectious/inflammatory enteritis as well as the possibility of small bowel obstruction. No free is identified and there is no discernible drainable collection/abscess. A small supraumbilical hernia is identified containing fat without definite herniated bowel. Liver, spleen, pancreas, gallbladder, bilateral adrenal glands and kidneys are relatively normal/stable by noncontrast evaluation. Pelvis demonstrates normal bladder and stable age-appropriate uterus/adnexa. Patient is again noted to be status post aortoiliac stent placement for aneurysm which appears relatively stable in appearance and diameter as compared to prior examination. The musculoskeletal structures demonstrate stable age-related degenerative changes without acute process. The lung bases demonstrate patchy scattered airspace disease and atelectasis along with small pleural effusions raising the possibility of viral pneumonia and or early CHF. IMPRESSION: 1. Significantly limited examination. 2. Moderate diffuse ascites and irregular appearance to mid to distal small bowel as described above. Differential diagnosis includes early small-bowel obstruction as well as infectious/inflammatory enteritis. No free air. No discrete drainable collection/abscess. 3. Small supraumbilical hernia remains unchanged and contains fat without definite herniated bowel. 4. Further stable chronic nonacute findings as noted above. <Electronically signed by Jeff Aguilar > 09/12/20 [id number]
[2020-09-12] MEDS ORDERED: oxyCODONE 5MG TAB PO ONE (10:15)
[2020-09-12] MEDS ORDERED: WARF-23 PO (10:49)
[2020-09-12] MEDS ORDERED: FURO20TA2 PO (10:49)
[2020-09-12] MEDS ORDERED: ACET-907 PO (10:49)
[2020-09-12] MEDS ORDERED: PANT-23 PO (10:49)
[2020-09-12] MEDS ORDERED: PERC5TAB12 PO (10:49)
[2020-09-12 10:58] LABS: RSV AMPLIFICATION NEGATIVE (NEGATIVE)
[2020-09-12] MEDS ORDERED: PANTOPRAZOLE 40MG TAB (PROTONIX) PO ONE (11:00)
[2020-09-12] MEDS ORDERED: FUROSEMIDE 40 MG TAB PO ONE (11:00)
[2020-09-12] MEDS ORDERED: LEVOTHYROXINE 150MCG TABLET (0.15MG) PO ONE (11:00)
[2020-09-12] MEDS ORDERED: CARVedilol 12.5 MG TAB PO ONE (11:00)
[2020-09-12] MEDS ORDERED: PERCOCET 5MG/325MG TAB PO PRN (11:20)
[2020-09-12] MEDS ORDERED: NITROGLYCERIN 0.4 MG SUBL TABLET SL PRN (11:20)
[2020-09-12] MEDS ORDERED: LIDOCAINE 5% (LIDODERM) PATCH TOP PRN (11:20)
--- NOTE | 2020-09-12 12:00 | HPEPDOC ---
[facility] Medical History & Physical Date of Admission Sep 12, 2020 Date of Service: Sep 12, 2020 Primary Care Physician: Sima Perez Attending Physician: ANMOL MATHIS DO History and Physical CHIEF COMPLAINT: Abdominal pain HISTORY OF PRESENT ILLNESS: The patient reports that she was in her usual state of health until last night when she developed a pain in the region of her umbilicus. It was not unbearable last night, therefore she went to sleep, but sometime during the night she woke up with unbearable pain. She then was brought to the ED via EMS where she was found to have an umbilical hernia. This was reduced in the ED, and then the CAT scan was obtained after the reduction of her umbilical hernia, therefore it does not show bowel loops present through the umbilical herniation. Nevertheless, she does have what appears to be a moderate amount of ascites present in the abdomen with inflammation of the small bowel. Given these findings, she will be admitted to make sure that her small bowel obstruction is completely resolved prior to letting her go home. CODE STATUS: Full code PAST MEDICAL HISTORY: Chronic back pain Asthma Atrial fibrillation status post pacemaker placement Aortic valve disorder Coronary artery disease Congestive heart failure with preserved ejection fraction Chronic kidney disease Hypothyroidism Osteoporosis with history of compression fracture Sjogren's syndrome Anemia Glaucoma Raynaud's syndrome PAST SURGICAL HISTORY: Per medical record: AAA endovascular graft 06/05/2006 Glaucoma shunt 2010 and 2011 Heart valve replacement 10/01/2012 Pacemaker placement 07/31/2013 CABG X3 2005 Hernia repair 3, most recent 2017 SOCIAL HISTORY: Never smoker, denies alcohol use, does not use illicit drugs FAMILY HISTORY: Noncontributory REVIEW OF SYSTEMS: Constitutional: Patient denies fevers, chills, night sweats, recent weight gain/loss. HEENT: Patient denies blurred or double vision, transient visual disturbances, postnasal drip, epistaxis, sore throat, difficulty chewing or swallowing food. Cardiovascular: Patient denies chest discomfort/pain, palpitations, exertional dyspnea, orthopnea. She reports that she has been slowly developing swelling of the lower extremities over the past 1-2 months for which she has been followed by her PCP. Respiratory: Patient denies dyspnea, wheezing, cough, hemoptysis, sputum production. Gastrointestinal: Patient admits to abdominal pain, but denies nausea, vomiting, diarrhea, constipation, melena, hematochezia, hematemesis, jaundice. PHYSICAL EXAMINATION: General: Awake, alert, oriented 3. She seems to be a fairly good historian. HEENT: Head normocephalic atraumatic, conjunctiva are pink, sclera are nonicteric, buccal mucosa is pink and moist with no lesions in the oropharynx. Hearing is grossly intact to conversation. Respiratory: Clear to auscultation bilaterally with no wheezes, rales, or rhon chi. Cardiovascular: Regular rate and rhythm with occasional extemporaneously beats, no rubs, gallops. Abdomen: Soft, minimally tender throughout, nondistended, no guarding, no hepatosplenomegaly appreciated. Bowel sounds present. Extremities: 2+ pulses in the radial and dorsalis pedis bilaterally. No evidence of clubbing or cyanosis. Her legs do appear to be large, but I cannot appreciate any pitting edema. IMAGING: CT the abdomen and pelvis with IV and oral contrast IMPRESSION: 1. Significantly limited examination. 2. Moderate diffuse ascites and irregular appearance to mid to distal small bowel as described above. Differential diagnosis includes early small-bowel obstruction as well as infectious/inflammatory enteritis. No free air. No discrete drainable collection/abscess. 3. Small supraumbilical hernia remains unchanged and contains fat without definite herniated bowel. 4. Further stable chronic nonacute findings as noted above. ASSESSMENT: Patient presented to the ED with abdominal pain and was found to have a herniated small bowel through the umbilical hernia. This was reduced in the ED. Follow-up CT scan shows ascites and inflammation of the small bowel, there is concern that she may continue to have a small bowel obstruction secondary to the inflammation. Since the patient was in her usual state of health until yesterday, and she is not had any symptomatology indicative of an infectious etiology, it is likely that the inflammation was secondary to the small bowel herniation. Nevertheless, she still does have what appears to be small bowel obstruction even after the reduction of the hernia. Diagnosis: Acute Small Bowel Obstruction Ascities Comorbities: Chronic back pain Asthma Atrial fibrillation status post pacemaker placement, on Warfarin Aortic valve disorder Coronary artery disease Congestive heart failure with preserved ejection fraction not presently in decompensation Chronic kidney disease - at baseline Hypothyroidism Osteoporosis with history of compression fracture Sjogren's syndrome Anemia - at baseline Glaucoma Raynaud's syndrome PLAN: Admit the patient to [facility] and. Started her on nothing by mouth diet except for medications. Gentle fluid rehydration with lactated Ringer's. NG tube LIS. Repeat KUB in the morning. Otherwise, continue her home medications for her chronic medical conditions. DVT Prophylaxis with Warfarin Vital Signs Vital Signs Date Time Temp Pulse Resp B/P (MAP) Pulse Ox O2 Delivery O2 Flow Rate FiO2 09/12/20 11:21 18 Nasal Cannula 2.0 09/12/20 11:15 85 100 09/12/20 08:15 180/87 (118) 09/12/20 07:19 96.6 Laboratory Data Labs 24H Laboratory Tests 2 09/12/20 06:18: Immature Granulocyte % (Auto) 0.4, Neutrophils (%) (Auto) 78.0H, Lymphocytes (%) (Auto) 16.9L, Monocytes (%) (Auto) 3.5, Eosinophils (%) (Auto) 0.4, Basophils (%) (Auto) 0.8, Neutrophils # (Auto) 6.0, Lymphocytes # (Auto) 1.3L, Monocytes # (Auto) 0.3, Eosinophils # (Auto) 0.0, Basophils # (Auto) 0.1, Nucleated Red Blood Cells % (auto) 0.0, Prothrombin Time 16.0H, Prothromb Time International Ratio 1.25, Activated Partial Thromboplast Time 34.7, Anion Gap 6L, Glomerular Filtration Rate > 60.0, Lactic Acid Level 1.7, Calcium Level 9.8, Total Bilirubin 0.6, Direct Bilirubin 0.3H, Aspartate Amino Transf (AST/SGOT) 61H, Alanine Aminotransferase (ALT/SGPT) 40, Alkaline Phosphatase 214H, Total Creatine Kinase 98, Creatine Kinase MB 3.0, Creatine Kinase MB Relative Index 3.06, Troponin I 0.03, Total Protein 7.7, Albumin 3.8, Albumin/Globulin Ratio 1.0L, Lipase 73 09/12/20 10:11: Coronavirus (COVID-19)(PCR) NEGATIVE, Influenza Type A (RT-PCR) NEGATIVE, Influenza Type B (RT-PCR) NEGATIVE, Respiratory Syncytial Virus (PCR) NEGATIVE CBC/BMP Laboratory Tests 09/12/20 06:18 Home Medications Scheduled Carvedilol (Carvedilol) 25 Mg Tab, 25 MG PO BID Dorzolamide HCl (Dorzolamide HCl) 2% 10ML Drops, 1 DROP OU BID Furosemide (Furosemide) 20 Mg Tablet, 40 MG PO DAILY Latanoprost (Xalatan) 0.005% 2.5ML Drops, 1 DROP OU QHS Levothyroxine Sodium (Levothyroxine Sodium) 150 Mcg Tab, 150 MCG PO DAILY Pantoprazole Sodium (Pantoprazole Sodium) 40 Mg Tablet.dr, 40 MG PO DAILY Warfarin Sodium (Warfarin Sodium) 5 Mg Tablet, 5 MG PO Q2D ALTERNATE WITH 2.5MG TABLET Warfarin Sodium (Warfarin Sodium) 5 Mg Tablet, 2.5 MG PO Q2D ALTERNATE WITH 5MG TABLET Scheduled PRN Acetaminophen (Tylenol) 325 Mg Tablet, 325 MG PO Q6H PRN for PAIN Lidocaine (Lidocaine) 5% Adh..patch, 1 PATCH TOP DAILY PRN for PAIN Nitroglycerin (Nitroglycerin) 0.4 Mg Sub, 0.4 MG SL NITRO PRN for CHEST PAIN Oxycodone HCl/Acetaminophen (Percocet 5-325 mg Tablet) 1 Each Tablet, 1 TAB PO QID PRN for PAIN Allergies Coded Allergies: ESPERANZA Inhibitors (Verified Adverse Reaction, Mild, COUGH, 07/30/20) ciprofloxacin (Verified Adverse Reaction, Mild, DIZZINESS, 07/30/20) meperidine (Verified Adverse Reaction, Mild, N/V, 07/30/20) A-FIB/CHADSVASC A-FIB History Current/History of A-Fib/PAF?: Yes Current PO Anticoag Therapy: Yes ANMOL MATHIS DO Sep 12, 2020 12:00
[2020-09-12 12:50] VITALS: BP 150/70
[2020-09-12] MEDS: CARVedilol 12.5 MG TAB PO SCH ×2 (13:15→21:00)
[2020-09-12] MEDS: PANTOPRAZOLE 40MG TAB (PROTONIX) PO SCH (13:15)
[2020-09-12] MEDS: LEVOTHYROXINE 150MCG TABLET (0.15MG) PO SCH (13:15)
[2020-09-12 14:00] VITALS: BP 151/86
[2020-09-12] MEDS: LR 1,000 ML IV SCH ×2 (14:45→22:16)
--- NOTE | 2020-09-12 15:13 | REP ---
INDICATION: confirm NG placement COMPARISON: 07/30/2020 TECHNIQUE: Portable AP view of the chest FINDINGS: Nasogastric tube in satisfactory position below the left hemidiaphragm. The mediastinum and cardiac silhouette are stable and cardiomegaly is again noted with evidence for prior sternotomy, CABG, pacemaker and aortic valve repair. The lung bojorquez demonstrate diffuse chronic interstitial changes and findings to suggest emphysematous disease. Subtle superimposed atelectasis cannot be excluded. No obvious effusion or pneumothorax. Skeletal structures demonstrate osteopenia and degenerative changes. Abdominal aortic stent noted. IMPRESSION: 1. Nasogastric tube in satisfactory position below the left hemidiaphragm. 2. Stable chronic changes. Superimposed basilar atelectasis cannot be excluded. <Electronically signed by Jeff Aguilar > 09/12/20 [id number]
[2020-09-12] MEDS: ACETAMINOPHEN 325 MG TAB PO PRN (16:36)
[2020-09-12] MEDS ORDERED: WARFARIN SOD 5MG TAB PO SCH (17:00)
[2020-09-12 20:00] VITALS: BP 82/49
[2020-09-12] MEDS ORDERED: LATANOPROST 0.005% OPHTH SOLN 2.5 ML OU SCH (21:00)
[2020-09-12] MEDS ORDERED: **NOTE PATIENT COMMENT** MISC XX SCH (21:00)
--- NOTE | 2020-09-12 23:31 | REPVR ---
PROCEDURE INFORMATION: Exam: XR Chest Exam date and time: 09/12/20 (11:05pm) Age: 85 years old Clinical indication: NG tube placement TECHNIQUE: Imaging protocol: Portable CXR Views: 1 view COMPARISON: Portable CXR of 09/12/20 (2:55pm) FINDINGS: Comparison is made with a portable CXR done 8 hours ago. The upper lobes are not included on the current film. Stable cardiomegaly. S/P sternotomy and aortic valve replacement. A few sternal wires are broken or fractured. Dual chamber pacemaker electrodes remain in place. No basilar infiltrates. No pleural effusions are seen. An enteric tube is seen, with its tip in the proximal stomach. An abdominal aortic stent is again visualized. IMPRESSION: No acute findings. An enteric tube is seen, with its tip in the proximal stomach. See additional comments above. Electronically signed by: Camelia Srinivasan On 09/12/2020 23:30:47 PM
[2020-09-12 23:50] VITALS: BP 82/54
[2020-09-13] VITALS (7 sets, daily range): BP systolic 77–98; BP diastolic 46–55
[2020-09-13] MEDS: ACETAMINOPHEN 325 MG TAB PO PRN ×2 (00:10→09:41)
[2020-09-13] MEDS ORDERED: MORPHINE 2 MG/ML 1ML VIAL (J2270) IV ONE (04:45)
--- NOTE | 2020-09-13 05:54 | REPVR ---
PROCEDURE INFORMATION: Exam: XR Chest Exam date and time: 09/13/20 (5:08am) Age: 85 years old Clinical indication: Cough and dyspnea. Possible edema. TECHNIQUE: Imaging protocol: Portable CXR Views: 1 view COMPARISON: Portable CXR of 09/12/20 (11:05pm) FINDINGS: Comparison is made with a portable CXR done 6 hours ago. Stable cardiomegaly. S/P sternotomy. A few sternal wires are broken / fractured. Dual chamber pacemaker electrodes remain in place. Mildly prominent lung markings again seen (unchanged). No focal infiltrates. No pleural effusions. Abdominal aortic stent (partially imaged). A few surgical clips medially in the LUQ area. An enteric tube remains in place, with its tip in the fundal region of the stomach IMPRESSION: In general, a similar appearance was noted 6 hours ago. Mildly prominent interstitial and vascular markings again seen.. Mild congestion may be present. No consolidation. No pleural effusions. Electronically signed by: Camelia Srinivasan On 09/13/2020 05:54:34 AM
[2020-09-13] MEDS: LEVOTHYROXINE 150MCG TABLET (0.15MG) PO SCH (06:02)
[2020-09-13 06:09] LABS: HEMATOCRIT 30.1 % (36.0-47.0); HEMOGLOBIN 9.3 g/dl (12.0-15.5); MEAN CORPUSCULAR HGB CONC 30.9 g/dl (32.0-36.5); MEAN CORPUSCULAR VOLUME 93.8 fl (80.0-96.0); PLATELET COUNT, AUTOMATED 149 10^3/uL (150-450); RED BLOOD COUNT 3.21 10^6/uL (4.00-5.40); WHITE BLOOD COUNT 9.3 10^3/uL (4.0-10.0)
[2020-09-13 06:19] LABS: INR 1.72; PROTHROMBIN TIME 20.6 SECONDS (12.5-14.3)
[2020-09-13 06:37] LABS: BILIRUBIN,TOTAL 0.7 MG/DL (0.2-1.0); CALCIUM LEVEL 8.8 MG/DL (8.8-10.2); CREATININE FOR GFR 1.56 MG/DL (0.55-1.30); GLOMERULAR FILTRATION RATE 33.7 (>32); POTASSIUM SERUM 4.8 MEQ/L (3.5-5.1); TOTAL PROTEIN 6.2 GM/DL (6.4-8.2)
[2020-09-13] MEDS ORDERED: FUROSEMIDE 20 MG TAB PO SCH (09:00)
[2020-09-13] MEDS: DORZOLAMIDE 2% OPHTH SOLN 10 ML BTL OU SCH (09:00)
[2020-09-13] MEDS: CARVedilol 12.5 MG TAB PO SCH (09:00)
[2020-09-13] MEDS: PANTOPRAZOLE 40MG TAB (PROTONIX) PO SCH (09:42)
[2020-09-13] MEDS: PERCOCET 5MG/325MG TAB PO SCH ×2 (10:57→16:58)
[2020-09-13] MEDS: LR 1,000 ML IV SCH (10:57)
[2020-09-13] MEDS ORDERED: LIDOCAINE 1% MDV 20ML VIAL As Ordered ONE (13:23)
--- NOTE | 2020-09-13 15:43 | IPNPDOC ---
Text Note Date of Service The patient was seen on 09/13/20. NOTE Hospitalist Progress Note Subjective: She is not complaining of any abdominal pain at this time. Apparently last night that she was upset because she did not get her oxycodone in what she considered to be a timely manner and decided to pull out her IV and NG tube stating "after I did that then they really snapped to". I explained to her that this was an inadvisable course of action and that doing so could certainly jeopardize her health and prolong her hospitalization. She is on oxycodone 4 times a day PRN for chronic back pain. I will switch her over to oxycodone 3 times a day scheduled while inpatient so that we do not have any more issues. Apparently she also had an episode of hypotension overnight, she was given a 1 L bolus, which improved her blood pressure. Objective: General: Awake, alert, oriented 3. Not in any acute distress. HEENT: Head normocephalic, atraumatic, sclera are nonicteric. Hearing is grossly intact to conversation. Respiratory: Minimal crackles at the bases, but otherwise clear. Cardiovascular: Regular rate and rhythm, with no rubs, gallops, or murmur. Abdomen: Soft, nontender, nondistended, no hepatosplenomegaly appreciated. Bowel sounds present. Extremities: 2+ pulses in the radial and dorsalis pedis bilaterally. No evidence of clubbing or cyanosis. Assessment: Acute Small Bowel Obstruction s/p reduction of herniated bowel through ubilical hernia in ED Ascities DVT Prophylaxis with Warfarin Comorbities: Chronic back pain Asthma Atrial fibrillation status post pacemaker placement, on Warfarin Aortic valve disorder Coronary artery disease Congestive heart failure with preserved ejection fraction not presently in decompensation Chronic kidney disease - at baseline Hypothyroidism Osteoporosis with history of compression fracture Sjogren's syndrome Anemia - at baseline Glaucoma Raynaud's syndrome PLAN: - Home dose of narcotics will be given on a scheduled basis - Renal function slightly worse today, we will continue to monitor. She is already receiving gentle fluid rehydration. - Nothing by mouth, except for medications. - Continue gentle fluid rehydration with lactated Ringer's. Lasix was given this morning after her bolus last night such that she does not become fluid overloaded. - NG tube LIS. - Repeat KUB in the morning. Otherwise, continue the remainder of her home medications for her chronic medical conditions. VS,Fishbone, I+O VS, Fishbone, I+O Laboratory Tests 09/13/20 05:45 Vital Signs Date Time Temp Pulse Resp B/P (MAP) Pulse Ox O2 Delivery O2 Flow Rate FiO2 09/13/20 13:55 98.5 76 18 98 Nasal Cannula 2.0 09/13/20 09:11 77/46 (56) I&O- Last 24 Hours up to 6 AM 09/13/20 05:59 Output Total 800 ml Balance -800 ml ANMOL MATHIS DO Sep 13, 2020 15:43
--- NOTE | 2020-09-13 16:12 | REP ---
INDICATION: SBO. COMPARISON: None. FINDINGS: KUB shows the intestinal gas pattern to be nonspecific. The organ silhouettes insofar as delineated are unremarkable. There is no evidence of free intraperitoneal air. An abdominal aortic stent graft is seen in place. This includes the proximal common iliac arteries. There is some opacification of the urinary bladder from previous radiographic procedure likely this CT of the abdomen and pelvis obtained 09/12/2020. IMPRESSION: Nonspecific. <Electronically signed by Chet Paige > 09/13/20 [id number]
[2020-09-13] MEDS ORDERED: WARFARIN SOD 5MG TAB PO SCH (17:00)
[2020-09-13] MEDS ORDERED: SODIUM CHLORIDE 0.9% INJ 10 ML SYR IV PRN (17:05)
--- NOTE | 2020-09-13 17:23 | REP ---
PROCEDURE NAME: PICC LINE INSERTION W/SITERITE CLINICAL INFORMATION: Cannot obtain IV access. COMPARISON: None. PROCEDURE DESCRIPTION: The procedure was performed by CATARINO Hardy, under the direct supervision of Dr. Hairston. The risks and benefits of the procedure were explained to the patient and an informed consent was obtained both verbally and written. Directly prior to the start of the procedure a formal time-out was completed in the procedure room. The right basilic vein was localized using ultrasound guidance. The skin was prepped and draped in sterile fashion. One mL of 1% lidocaine 10 mg/mL was used as a local anesthetic. Using ultrasound guidance the right basilic vein was cannulated, and a 0.018 guidewire was inserted and advanced to the level of SVC using fluoroscopic guidance. The needle was removed and a 5.5 Chadian dilator and peel-away sheath was inserted over the guidewire. A 5.5 Chadian dual lumen catheter was cut to a length of 30 cm. The dilator was removed and the catheter was inserted over the guidewire with the tip ending at the level of the SVC. The peel-away sheath was removed and the catheter was flushed with heparinized saline as per hospital protocol. The catheter was affixed to the skin and a sterile dressing was applied. The patient tolerated the procedure well and there were no immediate complications. CONCLUSION: PICC line insertion into the right basilic vein. 0.3 minutes of fluoroscopy time was utilized for this procedure. Some fluoroscopic images are performed with last image hold technology. These images require no additional radiation. <Electronically signed by Melida Amador > 09/13/20 150 <Electronically signed by [place] Hairston > 09/13/20 0194
[2020-09-13] MEDS ORDERED: SODIUM CHLORIDE 0.9% INJ 10 ML SYR IV SCH (18:00)
[2020-09-13] MEDS ORDERED: DEXTROSE 50% 50 ML SYRINGE As Ordered ONE (21:50)
[2020-09-13] MEDS ORDERED: D5W/0.9% SODIUM CHLORIDE 1,000 ML IV SCH (21:55)
[2020-09-13] MEDS ORDERED: LR 1,000 ML IV ONE ×2 (21:55)
--- NOTE | 2020-09-13 22:01 | IPNPDOC ---
Text Note Date of Service The patient was seen on 09/13/20. NOTE RR was called at 950pm bc the patient was altered VITALS BP 62/38 / HR 128 / Pulse ox 70% on 2L via NC / RR gluc < 10 The patient is unresponsive #Hypoglycemic encephalopathy #Hypotension possibly due to infection #Hypoxemia Plan: amp of D50/ FSBS Q1H / 1.5 L bolus LR then switch to D5NS / amin /she has a PICC in case she needs presors /f/u CBC, CMP, lactic, ABG, Trop, Chest xray , UA and blood cx/ f/u EKG / frequent neurochecks/ talked with the patient's son ADDENDUM 1022 Repeat glucose was 200 but she is still confused. We will order Narcan, the blood work & EKG are still pending. ADDENDUM 1026 Post narcan the patient is a bit more responsive. We will give her a second dose. ADDENDUM The staff were unable to feel a pulse . CPR was started at approximately 2233. The patient received 1 dose of Epi & telemerty showed PEA during the pulse check, ROSC was achieved after 10 min. The patient's son Viral Simon was informed and he elected to transition to [employer]. He will come to the [facility]. ADDENDUM at 1058 the patient . Total CC time at the bedside 68 min VS,Chanel, I+O VS, Chanel, I+O Laboratory Tests 09/13/20 05:45 Vital Signs Date Time Temp Pulse Resp B/P (MAP) Pulse Ox O2 Delivery O2 Flow Rate FiO2 09/13/20 20:03 98/52 (67) Nasal Cannula 2.0 09/13/20 17:28 18 09/13/20 13:55 98.5 76 98 I&O- Last 24 Hours up to 6 AM 09/13/20 06:00 Output Total 800 ml Balance -800 ml SHIRLEY LEMONS MD Sep 13, 2020 22:01
[2020-09-13] MEDS ORDERED: NALOXONE INJ 0.4MG/1ML VIAL (J2310 PER 1MG) IV STA ×2 (22:19→22:25)
[2020-09-13] MEDS ORDERED: NALOXONE INJ 0.4MG/1ML VIAL (J2310 PER 1MG) As Ordered ONE (22:21)
[2020-09-13] MEDS ORDERED: NOREPINEPHRINE 4 MG/4 ML AMP As Ordered ONE (22:39)
[2020-09-13 22:41] LABS: VENOUS BASE EXCESS -9.8 (-2.0-2.0); VENOUS HCO3 19.7 MEQ/L (23.0-27.0); VENOUS O2 SATURATION 68.8 % (60.0-80.0); VENOUS PARTIAL PRESSURE CO2 68.9 mmHg (38.0-50.0); VENOUS PARTIAL PRESSURE O2 46.7 mmHg (30.0-50.0); VENOUS PH 7.074 UNITS (7.330-7.430); VENOUS STANDARD HCO3 16.1 MEQ/L; VENOUS TOTAL CO2 21.8 MEQ/L (24.0-28.0)
[2020-09-13 22:42] LABS: BASO % 0.1 % (0.0-1.0); HEMATOCRIT 21.4 % (36.0-47.0); LYMPH # 1.8 10^3/uL (1.5-5.0); LYMPH % 26.6 % (24.0-44.0); MEAN CORPUSCULAR HEMOGLOBIN 28.5 pg (27.0-33.0); MEAN CORPUSCULAR HGB CONC 28.5 g/dl (32.0-36.5); MONO # 0.4 10^3/uL (0.0-0.8); MONO % 6.5 % (2.0-8.0); NEUTROPHILS # 4.5 10^3/uL (1.5-8.5); NEUTROPHILS % 65.9 % (36.0-66.0); PLATELET COUNT, AUTOMATED 117 10^3/uL (150-450); RED BLOOD COUNT 2.14 10^6/uL (4.00-5.40); WHITE BLOOD COUNT 6.8 10^3/uL (4.0-10.0)
[2020-09-13 22:45] LABS: HEMOGLOBIN 6.1 g/dl (12.0-15.5)
[2020-09-13] MEDS ORDERED: HYOSCYAMINE SULFATE 0.125 MG SUBL TABLET PO PRN (22:50)
[2020-09-13] MEDS ORDERED: LORazepam 2 MG/ML VIAL IV PRN (22:50)
[2020-09-13] MEDS ORDERED: MORPHINE 2 MG/ML 1ML VIAL (J2270) IV PRN (22:50)
[2020-09-13] MEDS ORDERED: FLEET ENEMA PR PRN (22:50)
[2020-09-13] MEDS ORDERED: ATROPINE SULFATE 1% OP SOLN 2 ML BTL SL PRN (22:50)
[2020-09-13] MEDS ORDERED: SCOPOLAMINE 1MG TRANSDERMAL PATCH TOP PRN (22:50)
[2020-09-13] MEDS ORDERED: ONDANSETRON 4MG/2ML VIAL IV PRN (22:50)
[2020-09-13] MEDS ORDERED: BISACODYL 10 MG SUPP PR PRN (22:50)
[2020-09-13 23:21] LABS: ALBUMIN 2.2 GM/DL (3.2-5.2); BILIRUBIN,TOTAL 1.1 MG/DL (0.2-1.0); CALCIUM LEVEL 7.7 MG/DL (8.8-10.2); CREATININE FOR GFR 2.11 MG/DL (0.55-1.30); GLOMERULAR FILTRATION RATE 23.8 (>32); POTASSIUM SERUM 5.6 MEQ/L (3.5-5.1); TOTAL PROTEIN 4.6 GM/DL (6.4-8.2); TROPONIN I 1.33 NG/ML (< 0.10)
[2020-09-14] MEDS ORDERED: EPINEPHrine 1MG/10ML SYRINGE 1.5IN ONE (00:45)
--- NOTE | 2020-09-14 05:20 | ECGEPIP ---
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
[2020-09-14 09:37] LABS: PROLACTIN 29.6 NG/ML
--- NOTE | 2020-09-18 16:05 | DS.PDOC ---
Discharge Summary General Date of Admission Sep 12, 2020 at 10:55 Date of Discharge 09/13/20 Discharge Summary DISCHARGE DIAGNOS(E)S: Acute hypoxic respiratory failure Cardiopulmonary arrest Possible acute ischemic bowel in the setting of hypotension and recently had a herniated small bowel Acute kidney injury Possible sepsis Hypertension Metabolic encephalopathy Hypoglycemia Hyperammonemia Possible myocardial infarction or NSTEMI HPI & HOSPITAL COURSE: The patient presented to the emergency department on 09/12/2020 with abdominal pain. She was found to have bowel herniated through on umbilical hernia. This was reduced in the emergency department. CT scan obtained after that confirmed reduction of umbilical hernia. This did show what appeared to be a moderate amount of ascites in the abdomen with inflammation of the small bowel which was suspected to have been secondary to it being herniated through the abdominal wall. Due to concerns for ileus versus small bowel obstruction secondary to the inflammation of the small bowel, she was admitted to the hospital. She had an IV infiltrate (Normal Saline) in the ED, and then later that night intentionally removed her NG tube and IV, and replacement of the IV was difficult, so a PICC line was inserted the next day. She had soft blood pressures overnight on her first night and a bolus of IV Lactated Ringers & fluids were continued. She did develop some mild rales by morning 09/13/20, but no changes on xray, and a dose of PO lasix was given. Apparently the remainder of the day went without much issue or complaint. At about 2149 on 09/13/20 a rapid response was called due to the patient being unresponsive, her systolic BP had been in the 90's all day and was found to be in the 60's now with tachycardia and hypoxia. Her glucose was found to be low <10. Fluid bolus, D50, narcan were given, and she apparently was a bit more responsive initially, but then by about 2232 she became unresponsive again with no pulse & CPR was initiated. Family was notified & they opted to stop CPR & was transitioned to Comfort Measures Only care. The patient at about 2257 on 09/13/20 DISPOSITION: [place] [facility] [place] Vital Signs/I&Os Vital Signs Date Time Temp Pulse Resp B/P (MAP) Pulse Ox O2 Delivery O2 Flow Rate FiO2 09/13/20 21:50 102 32 95/52 65 Nasal Cannula 2.0 09/13/20 13:55 98.5 Microbiology Microbiology 09/13/20 Blood Culture - Preliminary, Resulted No Growth after 72 hours. All specime... Discharge Medications Scheduled Carvedilol (Carvedilol) 25 Mg Tab, 25 MG PO BID, (Reported) Dorzolamide HCl (Dorzolamide HCl) 2% 10ML Drops, 1 DROP OU BID, (Reported) Furosemide (Furosemide) 20 Mg Tablet, 40 MG PO DAILY, (Reported) Latanoprost (Xalatan) 0.005% 2.5ML Drops, 1 DROP OU QHS, (Reported) Levothyroxine Sodium (Levothyroxine Sodium) 150 Mcg Tab, 150 MCG PO DAILY, (Reported) Pantoprazole Sodium (Pantoprazole Sodium) 40 Mg Tablet.dr, 40 MG PO DAILY, (Reported) Warfarin Sodium (Warfarin Sodium) 5 Mg Tablet, 5 MG PO Q2D, (Reported) ALTERNATE WITH 2.5MG TABLET Warfarin Sodium (Warfarin Sodium) 5 Mg Tablet, 2.5 MG PO Q2D, (Reported) ALTERNATE WITH 5MG TABLET Scheduled PRN Acetaminophen (Tylenol) 325 Mg Tablet, 325 MG PO Q6H PRN for PAIN, (Reported) Lidocaine (Lidocaine) 5% Adh..patch, 1 PATCH TOP DAILY PRN for PAIN, (Reported) Nitroglycerin (Nitroglycerin) 0.4 Mg Sub, 0.4 MG SL NITRO PRN for CHEST PAIN, (Reported) Oxycodone HCl/Acetaminophen (Percocet 5-325 mg Tablet) 1 Each Tablet, 1 TAB PO QID PRN for PAIN, (Reported) Allergies Coded Allergies: ESPERANZA Inhibitors (Verified Adverse Reaction, Mild, COUGH, 07/30/20) ciprofloxacin (Verified Adverse Reaction, Mild, DIZZINESS, 07/30/20) meperidine (Verified Adverse Reaction, Mild, N/V, 07/30/20) ANMOL MATHIS DO September 18, 2020 15:19
== END 2020-09-14 00:46 | disposition expired | DRG 388 ==
LOC: M ED 05:48 → M ED INP 10:55 → ENRESERV 11:35 → M MS5PR 12:45 → M ICU 09-13 22:05
PROVIDERS: ADMIT Neuromusculoskeletal Medicine & OMM; ATTEND Neuromusculoskeletal Medicine & OMM
DX: K56.609 Unspecified intestinal obstruction, unspecified as to partial versus complete obstruction (principal); J96.01 Acute respiratory failure with hypoxia; K55.019 Acute (reversible) ischemia of small intestine, extent unspecified; A41.9 Sepsis, unspecified organism; I21.4 Non-ST elevation (NSTEMI) myocardial infarction; G93.41 Metabolic encephalopathy; I50.32 Chronic diastolic (congestive) heart failure; Q87.19 Other congenital malformation syndromes predominantly associated with short stature; E72.20 Disorder of urea cycle metabolism, unspecified; N17.9 Acute kidney failure, unspecified; I65.8 Occlusion and stenosis of other precerebral arteries; I46.9 Cardiac arrest, cause unspecified; E16.2 Hypoglycemia, unspecified; Z79.899 Other long term (current) drug therapy; Z88.8 Allergy status to other drugs, medicaments and biological substances; Z95.0 Presence of cardiac pacemaker; I48.91 Unspecified atrial fibrillation; I25.10 Atherosclerotic heart disease of native coronary artery without angina pectoris; I35.0 Nonrheumatic aortic (valve) stenosis; M81.0 Age-related osteoporosis without current pathological fracture; E03.9 Hypothyroidism, unspecified; J45.909 Unspecified asthma, uncomplicated; Z51.5 Encounter for palliative care